=== PATIENT | male | born 1970 | race Caucasian/White ===

== ENCOUNTER 2023-05-11 21:38 | Inpatient (IN) | payer OTHER, SELFPAY ==
[2023-05-11] VITALS (16 sets, daily range): BP systolic 108–166; BP diastolic 84–141; BMI 29.8; BMI 29.0
[2023-05-11 18:32] LABS: % Basophils 0.5 % (0-2); % Eosinophils 0.4 % (0-6); % Immature Granulocytes 1.3 % (0-0.5); % Lymphocytes 15.2 % (20.5-51.1); % Monocytes 9.7 % (1.7-9.3); % Neutrophils 72.9 % (42.2-75.2); Absolute Basophils 0.1 10^3/uL (0-0.2); Absolute Immature Granulocytes 0.1 10^3/uL (0-0.05); Absolute Lymphocytes 1.4 10^3/uL (1.2-3.4); Absolute Monocytes 0.9 10^3/uL (0.1-0.6); Absolute Neutrophils 6.8 10^3/uL (1.4-6.5); Hematocrit 41.1 % (39.0-52.0); Hemoglobin 14.8 g/dL (13.0-18.0); Mean Corpuscular Hgb 32.5 pg (27.0-31.0); Mean Corpuscular Volume 90.3 fL (80.0-94.0); Mean Platelet Volume 9.6 fL (7.4-10.4); Nucleated Red Blood Cells % 0 % (-); Platelet Count 147 10^3/uL (130-400); Red Blood Cell Count 4.55 10^6/uL (4.70-6.10); Red Cell Dist. Width 12.2 % (11.5-14.5); White Blood Cell Count 9.3 10^3/uL (4.8-10.8)
[2023-05-11 18:48] LABS: ALT (SGPT) 46 U/L (0-50); AST (SGOT) 79 U/L (17-59); Albumin 4.5 g/dl (3.5-5.0); Alkaline Phosphatase 132 U/L (38-126); Blood Urea Nitrogen 23 mg/dl (9-20); Calcium 9.4 mg/dl (8.4-10.2); Carbon Dioxide 20 mmol/L (22-30); Chloride 92 mmol/L (98-107); Estimated Creatinine Clearance 87 ml/min; Glucose 154 mg/dl (70-99); Magnesium 0.8 mg/dl (1.6-2.3); Potassium 4.5 mmol/L (3.5-5.1); Sodium 125 mmol/L (135-145); Total Bilirubin 3.9 mg/dl (0.2-1.3); Total Protein 7.9 g/dl (6.3-8.2); eGFR > 60.00
[2023-05-11 18:49] LABS: Troponin I 0.013 ng/ml
[2023-05-11 19:12] LABS: TSH 5.39 uIU/ml (0.47-4.68)
[2023-05-11 19:29] LABS: Alcohol None Detected
[2023-05-11 19:37] LABS: APTT 27.2 Sec (23.4-35.0); INR 1.16; PT 14.8 Sec (11.4-14.6)
[2023-05-11] MEDS: CARDIZEM 20 MG IV (19:45)
[2023-05-11] MEDS: CARDIZEM 125 IV (19:45)
[2023-05-11] MEDS: MAGNESIUM SULFATE 50 IV (19:47)
--- NOTE | 2023-05-11 19:54 | ED.GENMED ---
History of Present Illness
General
Chief Complaint: Heart Rate Problem
Source: patient
Exam Limitations: none
Time Seen by Provider: 05/11/23 18:46
Nursing documentation reviewed up to this point in time: agreed with
Travel History
Have you had any contact with someone who has COVID-19?: No
Do you have any symptoms of coronavirus? Fever > 100 degrees, chills, cough, shortness of breath, sore throat, loss of taste or smell, muscle aches, or headache?: No
History of Present Illness
History of Present Illness:
Patient with history of daily alcohol intake, including yesterday, presents to ED secondary to increased heart rate noted at home along with 'pounding sensation' over the past 3 to 4 days. Denies dizziness. Denies chest pain. Denies nausea or
vomiting. Denies diarrhea. Denies headache. Denies recent illness. Denies recent change in medications or diet. Patient states that he has had similar symptoms in the past, but never this severe.
Past History
Past History
ED Past Medical History: GERD, HTN, Psychiatric (Anxiety, panic disorder) and Other (Alcohol abuse)
ED Past Surgical History: None
Social History
Tobacco: Non-smoker
Alcohol: Daily
Drug: Other (Admits to smoking crystal methamphetamine 2 days ago(04/2020))
Personal: Partner (Girlfriend of 4 years)
Living: with family
Employment: Employed (Self-employed)
Family History
Family History: Hypertension
Review of Systems
Review of Systems
Allergies reviewed?: Yes
All Other Systems: ROS reviewed and negative except as documented in HPI and ROS
Constitutional: Reports no symptoms
EENT: Reports no symptoms
Respiratory: Reports no symptoms
Cardiac: Reports palpitations
ABD/GI: Reports no symptoms
: Reports no symptoms
Musculoskeletal: Reports no symptoms
Skin: Reports no symptoms
Neurological: Reports no symptoms
Phy Exam
Physical Exam
Physical Exam:
Physical Exam
General: no apparent distress, not acutely ill. afebrile. tachycardic
Head: nc/at. eomi
Neck: supple. no meningeal signs.
Heart: tachycardic, no murmur. equal radial pulses.
Lungs: no acute respiratory distress. clear bilaterally
Abdomen: normal bowel sounds. not tender.
Neuro: alert and oriented. no focal neurological deficits
Skin: no rash
Psychiatric: well kept. interactive and cooperative
Extremities: no edema. no calf tenderness.
Course
Orders/Labs/Results
Orders:
Orders
05/11/23 Dinner
Regular
At Your Request: Full Participation
05/11/23 18:02
EKG [Electrocardiogram (*1)] Urgent
Reason for Study: Tachycardia
EKG- Treatment ONCE
05/11/23 18:15
Alcohol Urgent
Complete Blood Count/With Diff Urgent
Comprehensive Metabolic Panel Urgent
Magnesium Urgent
TSH Urgent
Troponin I Urgent
05/11/23 19:18
0.9% Sodium Chloride 1000 ml [Nss] 1,000 ml IV BOLUS
Diltiazem HCl [Cardizem] 20 mg IV NOW STA
Magnesium Sulfate 2 Gram/50 ml [Magnesium Sulfate] 2 gram in 50 ml IV NOW
05/11/23 19:19
Add On- LAB Urgent
Tests Added?: alcohol level, free T4
05/11/23 19:20
PTT Urgent
Prothrombin Time Urgent
05/11/23 19:30
Diltiazem 125 mg/125 ml Nss [Cardizem] 125 mg in 125 ml IV PER PROTOCOL
Initial dose in mg/hr, then titrate:: 5
Titrate to keep:: Heart rate 80-100 bpm
Titrate by mg/hr:: 5 mg/hr
Frequency of titrations (minutes):: 15
Maximum dose in mg/hr:: 15
05/11/23 20:09
Electrocardiogram (*1) Urgent
Reason for Study: Atrial Fibrillation
EKG- Treatment ONCE
05/11/23 21:07
Admit/Transfer Patient As Directed
Co-Sign Provider:
Level of Care: Inpatient admission
Assign to:: IMU- Intermediate Care
Physician / Group: gemini
Diagnosis: aflutter with rvr
Reason for Hospitalization: aflutter rvr
Expected length of stay greater than two midnights?: Yes
ELOS- Estimated Length of Stay in days: 2
I certify the patient meets the requirements for IP care: Yes
Code Status As Directed
Resuscitation Status: Full Code
05/11/23 21:10
Urine Osmolality Random [Osmolality, Random Urine] Urgent
Date Specimen was Collected: 05/12/23
Time Specimen was Collected: 04:05
Urine Sodium Urgent
Date Specimen was Collected: 05/12/23
Time Specimen was Collected: 04:05
05/11/23 22:43
0.9% Sodium Chloride 1000 ml [Nss] 1,000 ml IV 100 mls/hr
0.9% Sodium Chloride [Nss (Preservative Free)] See Protocol IV PRN PRN
Acetaminophen [Tylenol] 650 mg PO Q4HPRN PRN
FOLic ACID [Folvite] 1 mg 0.9% Sodium Chloride 50 ml [Nss] 50 ml IV DAILYPRN
Lorazepam [Ativan] 0.5 mg PO DAILYPRN PRN
Lorazepam [Ativan] 1 mg IV Q1HPRN PRN
Lorazepam [Ativan] 1 mg PO Q2HPRN PRN
Lorazepam [Ativan] 2 mg IV Q1HPRN PRN
Ondansetron Injectable [Zofran] 4 mg IV Q6HPRN PRN
05/11/23 22:43
Activity As Directed
Activity Level: As Tolerated
MSAS SCORE As Directed
MSAS Score 0-4: Repeat MSAS every 2 hours until 0-4 for three consecutive assessments, then every 4 hours x 48
hours.
MSAS Score 5-7: For MILD withdrawl symptoms. Repeat MSAS and RASS every 2 hours
MSAS Score 8-11: For MODERATE withdrawal symptoms. Repeat MSAS and RASS every 1 hour. Consider ICU or IMU
level of care.
MSAS Score > 11: For SEVERE withdrawal symptoms. Repeat MSAS and RASS every 1 hour. Notify provider, consider
ICU level of care.
MSAS Additional Instructions: If no improvement or no decrease in score from severe to moderate within 12
hours, consult psychiatry
MSAS Notify Provider: Notify provider if patient requires more than 10 mg of Lorazepam in eight hour period.
Vital Signs As Directed
Frequency: Per unit guidelines
DX Deep Vein Thrombosis Video Routine
05/12/23 05:51
Complete Blood Count/With Diff IN AM
Comprehensive Metabolic Panel IN AM
05/12/23 08:00
FOLic ACID [Folvite] 1 mg PO DAILY
Heparin 5,000 units SC Q12
Lisinopril [Zestril] 2.5 mg PO DAILY
Metoprolol Xl [Toprol Xl] 75 mg PO DAILY
Pantoprazole [Protonix] 40 mg PO DAILY
Thiamine Injection 200 mg IV Q12
05/15/23 08:00
Thiamine HCl [Vitamin B1] 100 mg PO BID
Abnormal Lab Results
05/11/23 05/11/23
18:15 19:20
RBC 4.55 L 10^6/uL
(4.70-6.10)
MCH 32.5 H pg
(27.0-31.0)
Abs Immat Gran (auto) 0.1 H 10^3/uL
(0-0.05)
Absolute Neuts (auto) 6.8 H 10^3/uL
(1.4-6.5)
Absolute Monos (auto) 0.9 H 10^3/uL
(0.1-0.6)
Immature Gran % 1.3 H %
(0-0.5)
Lymphocytes % 15.2 L %
(20.5-51.1)
Monocytes % 9.7 H %
(1.7-9.3)
PT 14.8 H Sec
(11.4-14.6)
Sodium 125 L mmol/L
(135-145)
Chloride 92 L mmol/L
(98-107)
Carbon Dioxide 20 L mmol/L
(22-30)
BUN 23 H mg/dl
(9-20)
Glucose 154 H mg/dl
(70-99)
Magnesium 0.8 L* mg/dl
(1.6-2.3)
Total Bilirubin 3.9 H mg/dl
(0.2-1.3)
AST 79 H U/L
(17-59)
Alkaline Phosphatase 132 H U/L
(38-126)
TSH 5.39 H uIU/ml
(0.47-4.68)
05/11/23 18:15
05/11/23 18:15
Vital Signs
Initial and Last Documented VS:
Initial Vital Signs
Temp Pulse Resp Pulse Ox
97.6 F 151 15 99
05/11/23 18:10 05/11/23 18:10 05/11/23 18:10 05/11/23 18:10
Last Documented Vital Signs
Temp Pulse Resp BP Pulse Ox
97.8 F 75 23 126/91 95
05/12/23 07:40 05/12/23 07:32 05/12/23 04:00 05/12/23 07:32 05/12/23 04:00
MDM/Problems Addressed
MDM/Problems Addressed:
History and exam consistent with rapid atrial flutter, along with electrolyte abnormalities, including hyponatremia and hypomagnesemia. Patient started on IV fluids along with Cardizem infusion, with improvement heart rate. Electrolytes repleted.
Patient will be admitted for further evaluation and treatment. Patient also at high risk for developing alcohol withdrawal symptoms.
Critical care statement: A total of 40 minutes of critical care time was provided for this patient. This includes management of unstable vital signs, evaluation of the patient at bedside, reviewing the patient's pertinent medical records, review of
old EKGs and review of pertinent medical records. This time with separate from time utilized to perform the aforementioned documented procedures
*EKG
Interpreted by ED Provider?: Yes
EKG Intrepretation Date: 05/11/23
Heart Rate: 149
Rate: tachycardiac
Rhythm: atrial flutter
Capron: normal axis
Interval: normal interval
*Critical Care Note
Total Time (30-74mins, 75-104mins- exclusive of procedures): 40 min
ED Attending Note
-
Portions of this chart may have been created with voice recognition software.� Occasional wrong word or��sound alike� substitutions may have occurred due to the inherent limitations of voice recognition software.
Discharge Plan
Departure
Patient Disposition: Admit
Date of Disposition: 05/11/23
Time of Disposition: 20:27
Admit to: IMU
Presentation/result/management discussed w/ accepting MD/DO: Hospitalist
Discharge Problem:
Atrial flutter with rapid ventricular response, Hyponatremia, Hypomagnesemia, Alcoholism, chronic
Interventions
Interventions:
*Risk Screen - Suicide Last Done: 05/11/23 22:56
*General Assessment Last Done: 05/11/23 18:10
*Neglect/Abuse Screening Last Done: 05/11/23 18:10
ED- Fall Risk Assessment Last Done: 05/11/23 18:39
*ED COVID-19 Vaccine History Last Done: 05/11/23 22:56
*Nursing Disposition Last Done: 05/11/23 23:43
ED- Cardiac Assessment Last Done: 05/11/23 18:39
ED- Pulmonary Assessment Last Done: 05/11/23 18:39
Discharge Date and Time
Discharge Date/Time: 05/11/23 23:00
[2023-05-11] MEDS: NSS 1000 IV ×2 (20:08→23:31)
--- NOTE | 2023-05-11 21:11 | HPS.HSE ---
Family Physician
-
Family Physician: Emilia Little
Chief Complaint
-
palpitations
History of Present Illness
53-year-old female with past medical history of anxiety, panic disorder, alcohol use disorder, hypertension, GERD, presents to the hospital for increased heart rate and palpitations over the past 4 days. He noticed on his Apple Watch his heart rate
had been significantly elevated. He denies any dizziness or passing out. He denied any chest pain in the past few days although for a long time he intermittently does get sharp chest pain that was attributed to anxiety. He denies any shortness of
breath.
He states that his blood pressure has been elevated for a long time and recently his primary has been increasing his blood pressure medications.
Patient states that he was told that he possibly had atrial fibrillation a few years ago but was never on treatment or anticoagulation.
Patient drinks at least 10 ounces of liquor per day. His last drink was yesterday. He does have some tremors all the time but denies any severe tremors or anxiety at this time.
He denies any nausea or vomiting or diarrhea. He denies any abdominal pain.
He denies smoking. He did use marijuana few days ago. He did use other drugs in his youth but denies any other drug use currently.
Medical History
Past Medical History
Past Medical History: Reports Other ( anxiety, panic disorder, alcohol use disorder, hypertension, GERD)
Past Surgical History: Reports None
Social History
Tobacco: Non-smoker
Alcohol: Daily
Drug: Marijuana
Family History
Family History: Not pertinent
Allergies / Home Medications
Allergies reflects when Allergies were last updated in [facility].
Home Medications with original date entered in [facility]
Allergy/Medication List:
Allergies
Allergy/AdvReac Type Severity Reaction Status Date / Time
chocolate flavor Allergy Unknown Unknown Verified 12/20/20 13:04
Home Medications
lisinopril 2.5 mg tablet 2.5 mg PO DAILY 05/11/23
lorazepam 0.5 mg tablet 0.5 mg PO DAILYPRN PRN Anxiety 05/11/23
metoprolol succinate 25 mg tablet,extended release 24 hr 75 mg PO DAILY 05/11/23
omeprazole 20 mg tablet,delayed release 20 mg PO DAILY 05/11/23
Review of Systems
-
History Source: Patient
A 12 point ROS was completed and negative except as noted: Yes
Constitutional: Reports No Symptoms
EENT: Reports No Symptoms
Respiratory: Reports No Symptoms
Cardiac: Reports See HPI
Abdomen/GI: Reports No Symptoms
: Reports No Symptoms
Musculoskeletal: Reports No Symptoms
Skin: Reports No Symptoms
Neurological: Reports No Symptoms
Endocrine: Reports No Symptoms
Hematologic/Lymphatic: Reports No Symptoms
Psych: Reports No Symptoms
Physical Exam
Vital Signs
Vital Signs
Temp Pulse Resp BP Pulse Ox
97.6 F 71 17 108/90 96
05/11/23 18:10 05/11/23 20:47 05/11/23 20:47 05/11/23 20:45 05/11/23 20:30
Physical Exam
General: Well Developed, Well Nourished and No Apparent Distress
HEENT: NormoCephalic, Moist mucous membranes and Atraumatic
Respiratory: Clear
Cardiac: S1/S2 and Regular Rhythm; No Murmur or Rub
GI: Soft, Non Tender, Non Distended and Normal Bowel Sounds; No Organomegaly
Rectal: Deferred by Provider
Musculoskeletal: No Clubbing, No Cyanosis and No Edema
Skin: No Rash
Neuro: Nonfocal/grossly intact
Laboratory Results
-
05/11/23 18:15
05/11/23 18:15
Laboratory Results
PT 14.8 Sec (11.4-14.6) H 05/11/23 19:20
INR 1.16 05/11/23 19:20
APTT 27.2 Sec (23.4-35.0) 05/11/23 19:20
Total Bilirubin 3.9 mg/dl (0.2-1.3) H 05/11/23 18:15
AST 79 U/L (17-59) H 05/11/23 18:15
ALT 46 U/L (0-50) 05/11/23 18:15
Alkaline Phosphatase 132 U/L (38-126) H 05/11/23 18:15
Troponin I 0.013 ng/ml 05/11/23 18:15
Data Reviewed
-
Lab Data: Labs Reviewed by me
Old Records: Reviewed
Impression/Plan
-
IMPRESSION:
PLAN:
# New onset atrial flutter with RVR
-EKG showed atrial flutter with 2:1 AV conduction with heart rate 149
-Cardizem drip started
-TSH pending
-Check echo
-Cardiology consulted
# Worsening of chronic asymptomatic hyponatremia likely beer potomania
-Check urine sodium, osmolality
-Monitor with IV fluids
# High risk for alcohol withdrawal
# Alcohol use disorder
-Alcohol level negative
-Thiamine and folate
-IV fluids
-Alcohol withdrawal protocol
# Hypomagnesemia secondary to alcohol use
-Replete magnesium
# Transaminitis secondary to alcohol use
-Continue to monitor
History of marijuana use
Essential hypertension
-Continue lisinopril, metoprolol
Anxiety/panic disorder
GERD
-Continue omeprazole
Full code
DVT prophylaxis�heparin
Regular diet
[2023-05-11] MEDS: ATIVAN 1 MG PO (23:31)
[2023-05-12] VITALS: BP 130/88
--- NOTE | 2023-05-12 00:51 | PTCARENOTE ---
Received pt from ED via stretcher. Pt was able to ambulate into room with minimal to no assistance. Pt used bathroom on arrival. Able to complete assessment. MSAS protocol in place. 1x dose Ativan given for MSAS of 5. Pt tremulous and
restless, HR >80. Pt very pleasant. Pt requests that NO information regarding his alcohol usage be disclosed to anyone. Cardizem gtt turned off as pt Hr came down into the 70s once comfortable in bed. NSR on monitor. Pt resting in bed with call
waddell in reach.
[2023-05-12 02:00] VITALS: BP 106/73
[2023-05-12] MEDS: TUMS 2 TABLET PO (02:39)
[2023-05-12 04:00] VITALS: BP 126/87
[2023-05-12 06:00] LABS: % Basophils 0.6 % (0-2); % Eosinophils 0.8 % (0-6); % Immature Granulocytes 0.3 % (0-0.5); % Lymphocytes 16.7 % (20.5-51.1); % Monocytes 11.8 % (1.7-9.3); % Neutrophils 69.8 % (42.2-75.2); Absolute Eosinophils 0.1 10^3/uL (0-0.7); Absolute Lymphocytes 1.2 10^3/uL (1.2-3.4); Absolute Monocytes 0.9 10^3/uL (0.1-0.6); Absolute Neutrophils 5.1 10^3/uL (1.4-6.5); Hematocrit 35.7 % (39.0-52.0); Hemoglobin 12.8 g/dL (13.0-18.0); Mean Corp Hgb Conc. 35.9 g/dL (33.0-37.0); Mean Corpuscular Hgb 33.1 pg (27.0-31.0); Mean Corpuscular Volume 92.2 fL (80.0-94.0); Nucleated Red Blood Cells % 0 % (-); Red Blood Cell Count 3.87 10^6/uL (4.70-6.10); Red Cell Dist. Width 12.2 % (11.5-14.5); White Blood Cell Count 7.2 10^3/uL (4.8-10.8)
[2023-05-12 06:26] LABS: Urine Sodium 69 mmol/L (30-90)
[2023-05-12 06:30] LABS: Mean Platelet Volume 9.9 fL (7.4-10.4); Platelet Count 92 10^3/uL (130-400)
[2023-05-12 06:33] LABS: ALT (SGPT) 34 U/L (0-50); AST (SGOT) 55 U/L (17-59); Albumin 3.5 g/dl (3.5-5.0); Alkaline Phosphatase 98 U/L (38-126); Blood Urea Nitrogen 23 mg/dl (9-20); Carbon Dioxide 21 mmol/L (22-30); Chloride 95 mmol/L (98-107); Estimated Creatinine Clearance 109 ml/min; Glucose 141 mg/dl (70-99); Potassium 4.6 mmol/L (3.5-5.1); Sodium 129 mmol/L (135-145); Total Bilirubin 3.1 mg/dl (0.2-1.3); Total Protein 6.4 g/dl (6.3-8.2); eGFR > 60.00
[2023-05-12 06:54] LABS: Magnesium 1.3 mg/dl (1.6-2.3)
[2023-05-12 07:06] LABS: Osmolality Urine 511 mOsm/kg (300-900)
[2023-05-12] MEDS: ZESTRIL 2.5 MG PO (07:32)
[2023-05-12] MEDS: PROTONIX 40 MG PO (07:32)
[2023-05-12] MEDS: TOPROL XL 75 MG PO (07:32)
[2023-05-12] MEDS: FOLVITE 1 MG PO (07:32)
[2023-05-12] MEDS: HEPARIN 5000 UNITS SC (07:33)
[2023-05-12] MEDS: THIAMINE INJECTION 200 MG IV (07:33)
[2023-05-12] MEDS: MAGNESIUM SULFATE 100 IV (07:33)
--- NOTE | 2023-05-12 07:38 | CON.CAR ---
Addendum entered and electronically signed by Al Gonsalez MD 05/12/23 10:57:
I saw and examined the patient.
The SPECIAL DELIVERY CLERK or PA's note was reviewed and I agree with the note.
Comment: General: Well developed, well nourished in NAD.
Neck: Supple, no JVD, HJR, carotids +2 B/L, no bruits bilaterally.
Heart: Non displaced PMI, RRR, no murmurs, No S3, S4, no rubs.
Lungs: Clear to auscultation bilaterally, no wheeze, rhonchi, rubs bilaterally,
normal expiratory phase.
Abdomen: Normal bowel sounds, soft, non-tender, non-distended.
Extremities: No clubbing, cyanosis or edema bilaterally.
Neuro: Grossly nonfocal, awake, alert and oriented x3.
Al has a history of anxiety, alcohol use, pancreatitis, hypertension, reflux. He presented with increased heart rate and palpitations over the past 4 days with elevated heart rate on his Apple watch. Was found to be in atrial flutter. He
spontaneously converted to sinus rhythm.
CHADS2 score is 1 with hypertension. Will treat with Toprol and aspirin for now. He will follow-up for recurrence on his Apple watch. Check echocardiogram. If okay stable cardiology status for discharge. Would consider ablation with recurrent
atrial flutter. Urged to stop drinking alcohol
Original Note:
Consultation
Consultation Request
Date/Time Consultation Requested: 05/11/2023
Date/Time Consultation Performed: 05/12/2023
Requesting Provider: Dr. Campos
Performing Provider: Maryanne Tyson PA-C for Dr. Gonsalez
Reason for Consultation: Atrial flutter
Medical History
-
History of Present Illness:
Patient is a 53-year-old female with past medical history of anxiety, panic disorder, alcohol use disorder, hypertension, GERD, presented 05/11/2023 to the hospital for increased heart rate and palpitations over the past 4 days. He noticed on his
Apple Watch his heart rate had been significantly elevated. Initial EKG on presentation showed atrial flutter at 86 bpm. However, upon monitoring of telemetry heart rate did increase to 2-1 atrial flutter at 149 bpm and patient was placed on IV
diltiazem drip with spontaneous conversion to sinus rhythm in emergency department.. Patient was found to be hyponatremic with sodium of 125, hypomagnesemic with magnesium of 0.8. TSH was mildly elevated at 5.39. Troponin was negative.
At time of this evaluation patient reports that he is feeling well. He denies further palpitations, chest pain, shortness of breath, dizziness or lightheadedness.
Patient reports he used to be very active and was exercising daily including running prior to the pandemic. Since that time he has not been as active. He notes occasional intermittent chest discomfort which comes without rhyme or reason and not
necessarily related to activity or exertion. He also notes occasional intermittent palpitations that can occur several times a week.
PMH:
Anxiety/Panic disorder
Alcohol use disorder
Pancreatitis
Hypertension
GERD with prior peptic ulcer
Past Medical History
Past Medical History: Other (See HPI)
Past Surgical History: None
Social History
Tobacco: Non-Smoker
Alcohol: Daily
Drug: Marijuana
Personal: Partner
Living: With Family
Employment: Employed (bill adjuster)
Family History
Family History: Cancer (Mother lung cancer)
Allergies / Home Medications
Allergy/AdvReac Type Severity Reaction Status Date / Time
chocolate flavor Allergy Unknown Unknown Verified 12/20/20 13:04
�Medication �Instructions �Recorded �Confirmed �Type
lisinopril 2.5 mg tablet 2.5 mg PO DAILY 05/11/23 05/11/23 History
lorazepam 0.5 mg tablet 0.5 mg PO DAILYPRN PRN Anxiety 05/11/23 05/11/23 History
metoprolol succinate 25 mg 75 mg PO DAILY 05/11/23 05/11/23 History
tablet,extended release 24 hr
omeprazole 20 mg tablet,delayed 20 mg PO DAILY 05/11/23 05/11/23 History
release
Review of Systems
-
History Source: Patient
All other systems: Negative unless noted
Physical Exam
Vital Signs
Temp Pulse Resp BP Pulse Ox
97.8 F 75 23 126/91 95
05/12/23 04:35 05/12/23 07:32 05/12/23 04:00 05/12/23 07:32 05/12/23 04:00
GEN: No distress, awake, Ox3
HEENT: supple, anicteric, mmm
LUNGS: CTA, no wheezes/rales
CV: Reg, S1/S2, no murmur, rubs or gallops
ABD: soft, BS+, NT/ND
EXT: No edema, clubbing or cyanosis
NEURO: Gross non-focal
SKIN: No rash, warm, dry, pink
Lab Results
05/12/23 05:51
05/12/23 05:51
Troponin I 0.013 ng/ml 05/11/23 18:15
Impression / Plan
-
PCP: Emilia Little
Supervisor Speech: None prior to arrival
Impression:
Presented 05/11/2023 with palpitations, tachycardia
Atrial flutter, new diagnosis
Hyponatremia
Hypomagnesemia
Elevated LFTs
Anxiety/Panic disorder
Alcohol use disorder
Pancreatitis
Hypertension
GERD with prior peptic ulcer
Echo 05/12/2023: ordered
Plan:
-Presented 05/11/2023 with palpitations, tachycardia noted to be in atrial flutter, new onset.
-New onset atrial flutter of unknown duration, possibly 4 days as patient had noted heart rate to be elevated on Apple Watch.
-Patient spontaneously converted to sinus rhythm with IV diltiazem. He remains in sinus rhythm overnight on telemetry.
-Continue Toprol for rate and rhythm control.
-Would check an echocardiogram to assess LV function.
-[id number] score 1 (HTN). Start ASA 81 mg.
-TSH 5.39
-Correct electrolytes, magnesium improved from 0.8-1.3. Continue repletion
-Improving hyponatremia 125-> 129. Likely secondary to daily alcohol use.
-Abnormal LFTs. Improved on repeat blood work AST/ALT 55/34
-Hypertension - continue low dose Lisinopril and Toprol.
-[facility] protocol for ETOH abuse. Discussed needs to reduce stop drinking
-Will arrange outpatient cardiology follow up with consideration of outpatient monitor. May be a good candidate for atrial flutter ablation.
-Atypical chest pain. Consider outpatient treadmill stress test at follow-up. Troponin negative
[facility] 05/12/2023:
Patient is a 53-year-old female with past medical history of anxiety, panic disorder, alcohol use disorder, hypertension, GERD, presented 05/11/2023 to the hospital for increased heart rate and palpitations over the past 4 days. He noticed on his
Apple Watch his heart rate had been significantly elevated. Initial EKG on presentation showed atrial flutter at 86 bpm. However, upon monitoring of telemetry heart rate did increase to 2-1 atrial flutter at 149 bpm and patient was placed on IV
diltiazem drip with spontaneous conversion to sinus rhythm in emergency department.. Patient was found to be hyponatremic with sodium of 125, hypomagnesemic with magnesium of 0.8. TSH was mildly elevated at 5.39. Troponin was negative.
At time of this evaluation patient reports that he is feeling well. He denies further palpitations, chest pain, shortness of breath, dizziness or lightheadedness.
Patient reports he used to be very active and was exercising daily including running prior to the pandemic. Since that time he has not been as active. He notes occasional intermittent chest discomfort which comes without rhyme or reason and not
necessarily related to activity or exertion. He also notes occasional intermittent palpitations that can occur several times a week.
--- NOTE | 2023-05-12 07:49 | W.PN.HOSP.TC ---
Today's Communication/Plan
-
await echo
await cards
Assessment / Plan
Assessment / Plan
pt is a 53 year old male
New onset atrial flutter with RVR--initial EKG showed atrial flutter with 2:1 AV conduction with heart rate 149--s/p cardizem drip (off this AM)--TSH mildly elevated--check echo--await cards input
Worsening of chronic asymptomatic hyponatremia likely due to ETOH intake--improving
Alcohol use disorder--High risk for alcohol withdrawal--cont with MSAS, IV thiamine/folate repletion--drinks 10 oz of liquor daily--knows he needs to quit--does not want his family knowing about his ETOH intake
Hypomagnesemia secondary to alcohol use--Replete magnesium
Transaminitis secondary to alcohol use--improved
History of marijuana use
Essential hypertension--Continue lisinopril, metoprolol--cont meds as able
Anxiety/panic disorder--pt reports taking lorazepam as needed
GERD-Continue omeprazole
Full code
DVT prophylaxis�heparin
Anticipated Discharge: Within 24 hours
Subjective/Interval History
-
Date of Service: May 12, 2023
pt heart rate improved--no c/o shakiness--wants to go home
Objective Data
-
Labs:
Laboratory Results
05/12/23
05:51
WBC 7.2
Hgb 12.8 L
Hct 35.7 L
Plt Count 92 L D
Sodium 129 L
Potassium 4.6
Chloride 95 L
Carbon Dioxide 21 L
BUN 23 H
Creatinine 0.8
Glucose 141 H
Calcium 9.0
Total Bilirubin 3.1 H
AST 55
ALT 34
Alkaline Phosphatase 98
Vital Signs:
max temp for 24 hours
05/11/23
23:50
Temp 98.2 F
Vital Signs
Temp Pulse Resp BP Pulse Ox
97.8 F 75 23 126/91 95
05/12/23 07:40 05/12/23 07:32 05/12/23 04:00 05/12/23 07:32 05/12/23 04:00
I&O
05/11/23 05/12/23 05/13/23
06:59 06:59 06:59
Intake Total 1230 / 1230
Output Total 125 / 125
Balance 1105 / 1105
Review of Systems
-
All other systems: Reviewed and negative
Physical Exam
-
General: Well Developed, Well Nourished and No Apparent Distress
HEENT: Normocephalic and Atraumatic; Negative Oxygen
Respiratory: Clear to Auscultation; Negative Wheezes or Rhonchi
Cardiac: Regular Rhythm and S1/S2; Negative Murmur
GI: Soft, Nontender, Nondistended and Normal Bowel Sounds
Musculoskeletal: No Clubbing, No Cyanosis and No Edema
Neuro: Awake and Alert; Negative Tremors
Psych: Calm
[2023-05-12] MEDS: NSS 1000 IV (09:35)
[2023-05-12] MEDS: LOW STRENGTH ASPIRIN 81 MG PO (09:35)
[2023-05-12] MEDS: ATIVAN 0.5 MG PO (09:39)
--- NOTE | 2023-05-12 11:34 | CM ---
Patient seen at bedside. Patient for discharge home. Per nursing and chart review patient lives with friend and PCP is Dr. Little. Patient confirmed plan for driving home and stated that he has no other needs. Patient uses the [facility] in [place].
Patient plan is for discharge home with no needs. CM will continue to follow for discharge planning needs.
Plan; home with no needs acknowledged at this time.
--- NOTE | 2023-05-12 13:06 | PTCARENOTE ---
Patient refused FLU shot reports it too late in the season.
--- NOTE | 2023-05-12 13:32 | W.DCSUMMARY ---
Discharge Summary
Discharge Data
Date of Admission: 05/11/23
Date of Discharge: 05/12/23
-
Pending Results: No
Hospital Course
Primary care physician : Emilia Little
Principal Discharge diagnosis : New onset atrial flutter with rapid ventricular response
Chronic Discharge diagnosis : Chronic asymptomatic hyponatremia due to alcohol intake, alcohol use disorder, hypomagnesemia, transaminitis secondary to alcohol use, history of marijuana use, essential hypertension, anxiety/panic disorder,
gastroesophageal reflux disease
Hospital Course : Patient 53-year-old male with a history of anxiety and panic disorder, alcohol use disorder who presented for increased heart rate and palpitations over the past 4 days prior to admission. He noticed on his Apple Watch his heart
rate was significantly elevated. He denied any dizziness, chest pain or passing out. Patient stated he was told that he possibly had atrial fibrillation a few years back was but was never on treatment or anticoagulation. Patient drinks 10 ounces
of liquor per day and his last drink was the day prior to admission. Patient was admitted.
Problem #1: New onset atrial flutter with a ventricular response. Patient was placed on a Cardizem drip and his heart rate improved. He was seen in consultation by cardiology who did not feel that he needs any type of anticoagulation at this
point. Echocardiogram was done which shows normal ejection fraction of 65%. Other measures were also normal. He will be continued on Toprol and aspirin for now. He has been instructed to stop drinking alcohol.
Problem #2: All other medical issues. These include Chronic asymptomatic hyponatremia due to alcohol intake, alcohol use disorder, hypomagnesemia, transaminitis secondary to alcohol use, history of marijuana use, essential hypertension,
anxiety/panic disorder, gastroesophageal reflux disease. These medical issues were stable during his hospitalization. Medications were continued as able. Patient was placed on the alcohol withdrawal protocol. There were no signs of withdrawal at
this point.
Patient is stable for discharge home at this time. If there are any questions regarding this dictation or his hospital stay, please not hesitate to call. Our office number is [phone].
Procedure findings :
ECHOCARDIOGRAM CONCLUSIONS:
Normal left ventricular chamber size. Normal left ventricular systolic
function. Left ventricular ejection fraction is 65% by visual assessment.
Normal regional wall motion. Normal left ventricular wall thickness. Normal
diastolic function.
Discharge Plan
-
Patient Disposition: Home (Routine Discharge)
Discharge Diagnosis/Procedures: New onset atrial flutter with rapid ventricular response, chronic asymptomatic hyponatremia due to alcohol intake, alcohol use disorder, hypomagnesemia, transaminitis resolved, history of marijuana use, essential
hypertension, anxiety/panic disorder, gastroesophageal reflux disease
Condition: Good
Diet: As tolerated and Regular
Additional Diets: avoid all alcohol
Activity: As tolerated
Driving Restrictions: As prior to admission
Bathing Restrictions: None
Referrals:
Maryanne Tyson PA-C [Specified Professional Personl] - 06/02/23 8:40 am (You have cardiology follow up with Maryanne Tyson PA-C on June 01 at 8:40 am in [address] in [address] [facility] which is located behind the hospital. If you are unable to make this
appointment please call [phone] to reschedule. )
Emilia Little PA-C [Family Provider] - in less than 1 week
Prescriptions:
New
thiamine HCl (vitamin B1) 100 mg Tablet
100 mg PO BID Qty: 0 0RF
aspirin [Children's Aspirin] 81 mg Tablet,Chewable
81 mg PO DAILY Qty: 0 0RF
folic acid 1 mg Tablet
1 mg PO DAILY Qty: 0 0RF
Continued
lisinopril 2.5 mg Tablet
2.5 mg PO DAILY
omeprazole 20 mg Tablet,Delayed Release (Dr/Ec)
20 mg PO DAILY
lorazepam 0.5 MG tablet
0.5 mg PO DAILYPRN PRN (Reason: Anxiety)
metoprolol succinate 25 MG tablet extended release 24 hr
75 mg PO DAILY
Discharge Orders:
Discharge Patient (As Directed); Ordered 05/12/23
Ordered By: Chloe Devlin
Discharge Date and Time
Discharge Date/Time: 05/12/23 13:23
Print Language: URDU
== END 2023-05-12 13:23 | disposition home or self-care (01) | DRG 309 ==
LOC: IMU 21:38
PROVIDERS: ADMITTING PHYSICIAN Hospitalist; ATTENDING PHYSICIAN Internal Medicine; EMERGENCY PHYSICIAN Emergency Medicine; FAMILY PHYSICIAN Physician Assistant; OTHER PHYSICIAN Internal Medicine Cardiovascular Disease
DX: I48.92 Unspecified atrial flutter (principal); E87.1 Hypo-osmolality and hyponatremia; F41.0 Panic disorder [episodic paroxysmal anxiety]; I10 Essential (primary) hypertension; K21.9 Gastro-esophageal reflux disease without esophagitis; F10.20 Alcohol dependence, uncomplicated; I48.91 Unspecified atrial fibrillation; E83.42 Hypomagnesemia; R25.1 Tremor, unspecified; R74.01 Elevation of levels of liver transaminase levels; F12.91 Cannabis use, unspecified, in remission; Z91.02 Food additives allergy status; Z87.11 Personal history of peptic ulcer disease
CPT/HCPCS: 80053; 82077; 83735; 83935; 84300; 84443; 84484; 85025; 85610; 85730; 93005; 93306; 96365; 96366; 96375; 99285

== ENCOUNTER 2023-10-05 15:25 | Emergency (ER) | payer OTHER, SELFPAY ==
[2023-10-05] VITALS (10 sets, daily range): BP systolic 120–147; BP diastolic 98–118
--- NOTE | 2023-10-05 15:43 | ED.PDOC.TRB ---
ED Provider Triage
-
Patient seen by provider in Triage?: Seen in Triage
Patient presents with onset of palpitations and racing heart couple hours prior to arrival. No chest pain or shortness of breath. He was admitted in May of this year for new onset atrial flutter. He is not anticoagulated. No complaints
otherwise. Patient is stable. Labs ordered EKG shows atrial flutter with a rate in the 150s. Daily alcohol use.
[2023-10-05 15:58] LABS: % Basophils 0.5 % (0-2); % Eosinophils 0.5 % (0-6); % Immature Granulocytes 0.1 % (0-0.5); % Lymphocytes 18.7 % (20.5-51.1); % Monocytes 12.3 % (1.7-9.3); % Neutrophils 67.9 % (42.2-75.2); Absolute Lymphocytes 1.4 10^3/uL (1.2-3.4); Absolute Monocytes 0.9 10^3/uL (0.1-0.6); Hematocrit 35.7 % (39.0-52.0); Hemoglobin 12.9 g/dL (13.0-18.0); Mean Corp Hgb Conc. 36.1 g/dL (33.0-37.0); Mean Corpuscular Hgb 32.1 pg (27.0-31.0); Mean Corpuscular Volume 88.8 fL (80.0-94.0); Mean Platelet Volume 9.9 fL (7.4-10.4); Nucleated Red Blood Cells % 0 % (-); Platelet Count 136 10^3/uL (130-400); Red Blood Cell Count 4.02 10^6/uL (4.70-6.10); Red Cell Dist. Width 12.5 % (11.5-14.5); White Blood Cell Count 7.3 10^3/uL (4.8-10.8)
[2023-10-05 16:02] LABS: ALT (SGPT) 43 U/L (0-50); AST (SGOT) 101 U/L (17-59); Albumin 3.8 g/dl (3.5-5.0); Alcohol 21 mg/dl; Alkaline Phosphatase 261 U/L (38-126); Blood Urea Nitrogen 14 mg/dl (9-20); Calcium 8.1 mg/dl (8.4-10.2); Carbon Dioxide 22 mmol/L (22-30); Chloride 96 mmol/L (98-107); Glucose 205 mg/dl (70-99); Potassium 4.6 mmol/L (3.5-5.1); Sodium 129 mmol/L (135-145); Total Bilirubin 1.9 mg/dl (0.2-1.3); Total Protein 7.2 g/dl (6.3-8.2); eGFR > 60.00
[2023-10-05 16:32] LABS: TSH Reflex To Free T4 3.22 uIU/ml (0.47-4.68)
--- NOTE | 2023-10-05 16:48 | ED.GENMED ---
History of Present Illness
General
Chief Complaint: Heart Rate Problem
Source: patient and records
Exam Limitations: none
Time Seen by Provider: 10/05/23 16:07
Nursing documentation reviewed up to this point in time: agreed with
History of Present Illness
History of Present Illness:
Patient is a 53-year-old male who presents to the emergency department after going into atrial flutter approximately 2 hours ago. Patient was drinking cold liquids and then had something to eat when he went into tachycardia. Patient is certain
that it was 2 hours ago. Patient is not anticoagulated. Patient has not followed up with cardiology but his family doctor. Patient has a history of hyponatremia in the past. Patient drinks water excessively. Patient denies fever or chills,
nasal congestion, sore throat or cough. Patient denies any chest pain or shortness of breath. Patient has had some nausea but no vomiting or diarrhea. Patient denies any abdominal pain. Initially patient thought he was just feeling anxious but
he checked his watch and the rate was elevated. Patient denies any leg pain or swelling. Patient denies any symptoms.
Past History
Past History
ED Past Medical History: Arrthythmia (Atrial flutter), GERD, HTN, Psychiatric (Anxiety, panic disorder) and Other (Alcohol abuse)
ED Past Surgical History: None
Social History
Tobacco: Non-smoker
Alcohol: Daily
Drug: Other (Admits to smoking crystal methamphetamine 2 days ago(04/2020))
Personal: Partner (Girlfriend of 4 years)
Living: with family
Employment: Employed (Self-employed)
Family History
Family History: Hypertension
Review of Systems
Review of Systems
All Other Systems: ROS reviewed and negative except as documented in HPI and ROS
Constitutional: Reports fatigue; Denies fever or chills
EENT: Reports no symptoms
Respiratory: Reports no symptoms
Cardiac: Reports palpitations; Denies chest pain, diaphoresis or syncope
ABD/GI: Reports nausea; Denies abdominal pain, vomiting, diarrhea, constipated, bloody stools or black stools
: Reports no symptoms
Musculoskeletal: Reports no symptoms
Skin: Reports no symptoms
Neurological: Reports no symptoms
Hematologic/Lymphatic: Reports no symptoms
Psychiatric: Reports no symptoms
Phy Exam
Physical Exam
Physical Exam:
Physical Exam
General: No apparent distress, alert and appropriate, well nourished, well hydrated
HENT: Normocephalic, supple with no lymphadenopathy, no thyromegaly
Eyes: Clear sclera, conjuctiva without injection
Heart: Regular irregular irregular rhythm and tachycardic rate. No S3, S4. No murmur. No NVD
Lungs: No respiratory distress, no stridor, lung sounds clear and equal bilaterally, chest wall symmetrical and nontender
Abdomen: Soft, nontender, no organomegaly, no CVA tenderness, BS good
Neuro: Alert and oriented x 3, CN II - XII intact, no motor focality, no cerebellar dysfunction
Skin: no rash
Psychiatric: well kept. interactive and cooperative
Extremities: No edema, cyanosis, tenderness
Scores
Heart Failure Risk
Heart Failure Risk Score: Not Applicable
Heart Score for Chest Pain Patients
STEMI patient?: Not applicable
Withdrawal Assessment of Alcohol
Withdrawal Assessment Completed?: Not applicable
Course
Orders/Labs/Results
Orders:
Orders
10/05/23 15:27
EKG [Electrocardiogram (*1)] Urgent
Reason for Study: Chest Pain
EKG- Treatment ONCE
10/05/23 15:40
Alcohol Urgent
Complete Blood Count/With Diff Urgent
Comprehensive Metabolic Panel Urgent
TSH Reflex To Free T4 Urgent
10/05/23 16:40
Propofol [Diprivan] 20 ml .ROUTE .STK-MED
Abnormal Lab Results
10/05/23
15:40
RBC 4.02 L 10^6/uL
(4.70-6.10)
Hgb 12.9 L g/dL
(13.0-18.0)
Hct 35.7 L %
(39.0-52.0)
MCH 32.1 H pg
(27.0-31.0)
Absolute Monos (auto) 0.9 H 10^3/uL
(0.1-0.6)
Lymphocytes % 18.7 L %
(20.5-51.1)
Monocytes % 12.3 H %
(1.7-9.3)
Sodium 129 L mmol/L
(135-145)
Chloride 96 L mmol/L
(98-107)
Glucose 205 H mg/dl
(70-99)
Calcium 8.1 L mg/dl
(8.4-10.2)
Total Bilirubin 1.9 H mg/dl
(0.2-1.3)
AST 101 H U/L
(17-59)
Alkaline Phosphatase 261 H U/L
(38-126)
10/05/23 15:40
10/05/23 15:40
Vital Signs
Initial and Last Documented VS:
Initial Vital Signs
Temp Pulse Resp BP Pulse Ox
98.2 F 150 20 146/110 99
10/05/23 15:30 10/05/23 15:30 10/05/23 15:30 10/05/23 15:30 10/05/23 15:30
Last Documented Vital Signs
Temp Pulse Resp BP Pulse Ox
97 F 92 18 128/98 98
10/05/23 18:08 10/05/23 17:57 10/05/23 17:57 10/05/23 17:57 10/05/23 17:57
Procedures
Cardioversion
Indication:: Afib
Performed by:: linkenheimer
Synchronized?: Yes
Energy Used: 150 joules
Number of attempts: 1
Successful?: Yes
Complications: none
ASA Risk Score: Class II
Any reaction or bad outcome to prior sedation/anesthesia?: No history of a reaction
Sedation level to be attained: deep
Chart and allergies reviewed: Yes
Patient reassessed prior to sedation: Yes
Time out completed at (validating right patient & procedure): 17:07
History of difficult intubation: No
Airway free of obstruction: Yes
Patient has a gag reflex: Yes
Patient is able to open mouth: Yes
Patient has no dentures: Yes
Patient has no loose teeth: Yes
Medication administered by Provider during Moderate Sedation: IV Propofol (mg)
Total dose administered: 100
Time drug administered: 17:07
Start Time: 17:07
Stop Time: 17:17
*Radiology
Radiology exam reviewed: other (na)
*Pulse Oximetry
Patient hypoxic: no
*EKG
Interpreted by ED Provider?: Yes
EKG Intrepretation Date: 10/05/23
EKG Intrepretation Time: 16:52
Interpretation: abnormal
Comparison EKG: changes noted
Heart Rate: 144
Rate: tachycardiac
Rhythm: atrial flutter
[place]: normal axis
Interval: normal QT interval
QRS Pattern: normal QRS
Ischemia: non-specific ST changes
*Plug Drill Operator Interpretation
Rate: tachycardiac
Interpretation: abnormal
Heart Rate: 150
Rhythm: atrial flutter
*Critical Care Note
Total Time (30-74mins, 75-104mins- exclusive of procedures): Not Applicable
ED Attending Note
-
Portions of this chart may have been created with voice recognition software.� Occasional wrong word or��sound alike� substitutions may have occurred due to the inherent limitations of voice recognition software.
Discharge Plan
Departure
Patient Disposition: Home (Routine Discharge)
Date of Disposition: 10/05/23
Time of Disposition: 17:56
Patient with high blood pressure during this ER visit?: No
Condition: Good
Covid-19: Not Applicable
Discharge Problem:
Atrial flutter with rapid ventricular response, Hyponatremia
Instructions: Atrial Fibrillation (DC), Cardioversion (DC), Hypovolemia in adults, MODERATE SEDATION ADULT
Prescriptions:
New
Eliquis 5 mg tablet
5 mg PO BID Qty: 60 0RF
No Action
omeprazole 20 mg Tablet,Delayed Release (Dr/Ec)
20 mg PO DAILY
lorazepam 0.5 MG tablet
0.5 mg PO DAILYPRN PRN (Reason: Anxiety)
Patient Comments:
10/05/23: last filled 09/20/23 for 30 tablets over 30 days
metoprolol succinate 25 MG tablet extended release 24 hr
75 mg PO DAILY
aspirin [Children's Aspirin] 81 mg Tablet,Chewable
81 mg PO DAILY Qty: 0 0RF
ibuprofen 200 mg Tablet
600 mg PO Q6HPRN PRN (Reason: mild pain)
lisinopril 5 mg Tablet
5 mg PO DAILY
folic acid 800 mcg Tablet
0.8 mg PO DAILY
Referrals:
Emilia Little PA-C [Family Provider] - Follow up in 5-7 days
Nichole Burnett DO [Active] - Call in 1-3 days for appt
Activity Restrictions/Additional Instructions:
Continue present medications and therapy.
Interventions
Interventions:
*Risk Screen - Suicide Last Done: 10/05/23 16:12
*General Assessment Last Done: 10/05/23 16:12
*Neglect/Abuse Screening Last Done: 10/05/23 16:12
*ED COVID-19 Vaccine History Last Done: 10/05/23 16:12
*Nursing Disposition Last Done: 10/05/23 18:23
ED- Cardiac Assessment Last Done: 10/05/23 16:12
ED- Pulmonary Assessment Last Done: 10/05/23 16:12
Discharge Date and Time
Discharge Date/Time: 10/05/23 18:24
Print Language: BELARUSIAN
== END 2023-10-05 18:24 | disposition home or self-care (01) ==
LOC: EMR 15:25
PROVIDERS: Physician Assistant; EMERGENCY PHYSICIAN Emergency Medicine; FAMILY PHYSICIAN Physician Assistant
DX: I48.92 Unspecified atrial flutter (principal); E87.1 Hypo-osmolality and hyponatremia; I10 Essential (primary) hypertension; F10.90 Alcohol use, unspecified, uncomplicated; F41.9 Anxiety disorder, unspecified; Z79.899 Other long term (current) drug therapy
CPT/HCPCS: 92960; 99285; 80053; 82077; 84443; 85025; 93005

== ENCOUNTER → 2024-01-29 10:51 | Outpatient (REF) | payer OTHER, SELFPAY | LOC: HWRAD 10:51 | PROVIDERS: ATTENDING PHYSICIAN Physician Assistant | DX: R79.0 Abnormal level of blood mineral (principal); F10.10 Alcohol abuse, uncomplicated; R79.89 Other specified abnormal findings of blood chemistry | CPT/HCPCS: 76700 ==

== ENCOUNTER → 2024-04-02 12:33 | Outpatient (REF) | payer OTHER, SELFPAY | LOC: PET 12:33 | PROVIDERS: ATTENDING PHYSICIAN Internal Medicine Cardiovascular Disease | DX: R07.89 Other chest pain (principal) | CPT/HCPCS: 78431; A9555; J2785 ==

== ENCOUNTER 2024-06-26 18:03 | Emergency (ER) | payer SELFPAY ==
[2024-06-26 18:05] VITALS: BP 178/105
[2024-06-26 18:54] VITALS: BMI 25.4
[2024-06-26 19:43] LABS: % Basophils 0.4 % (0-2); % Eosinophils 0.2 % (0-6); % Immature Granulocytes 0.3 % (0-0.5); % Lymphocytes 11.1 % (20.5-51.1); Absolute Lymphocytes 1.1 10^3/uL (1.2-3.4); Absolute Monocytes 0.9 10^3/uL (0.1-0.6); Absolute Neutrophils 7.7 10^3/uL (1.4-6.5); Hematocrit 31.6 % (39.0-52.0); Hemoglobin 11.2 g/dL (13.0-18.0); Mean Corp Hgb Conc. 35.4 g/dL (33.0-37.0); Mean Corpuscular Hgb 32.3 pg (27.0-31.0); Mean Corpuscular Volume 91.1 fL (80.0-94.0); Mean Platelet Volume 9.8 fL (7.4-10.4); Nucleated Red Blood Cells % 0 % (-); Platelet Count 151 10^3/uL (130-400); Red Blood Cell Count 3.47 10^6/uL (4.70-6.10); Red Cell Dist. Width 11.4 % (11.5-14.5); White Blood Cell Count 9.7 10^3/uL (4.8-10.8)
[2024-06-26 19:53] LABS: ALT (SGPT) 21 U/L (0-50); AST (SGOT) 41 U/L (17-59); Albumin 3.4 g/dl (3.5-5.0); Alkaline Phosphatase 275 U/L (38-126); Blood Urea Nitrogen 27 mg/dl (9-20); Calcium 8.6 mg/dl (8.4-10.2); Carbon Dioxide 23 mmol/L (22-30); Chloride 109 mmol/L (98-107); Estimated Creatinine Clearance 108 ml/min; Glucose 236 mg/dl (70-99); Potassium 4.1 mmol/L (3.5-5.1); Sodium 138 mmol/L (135-145); Total Bilirubin 2.4 mg/dl (0.2-1.3); Total Protein 6.6 g/dl (6.3-8.2); eGFR > 60.00
[2024-06-26 20:00] VITALS: BP 169/105
[2024-06-26 20:01] LABS: INR 1.22; PT 15.9 Sec (11.4-14.6)
[2024-06-26 20:14] LABS: COVID-19 Antigen Negative (Negative)
--- NOTE | 2024-06-26 21:01 | ED.GENMED ---
History of Present Illness
General
Chief Complaint: Breathing Problem
Time Seen by Provider: 06/26/24 19:09
History of Present Illness
History of Present Illness:
34-year-old male with history of paroxysmal atrial flutter on anticoagulants presents the emergency department for evaluation of persistent coughing and nasal congestion for the past 5 days with brown/yellowish discharge. Was concerned for
possibility of hemoptysis today as well. Reports body aches and chills. Also notes dark stool. He does admit to heavy alcohol use for greater than 1 year, declining any resources at this time. No upper abdominal pain
Past History
Past History
ED Past Medical History: Arrthythmia (Atrial flutter), GERD, HTN, Psychiatric (Anxiety, panic disorder) and Other (Alcohol abuse)
ED Past Surgical History: None
Social History
Tobacco: Non-smoker
Alcohol: Daily
Drug: Other (Admits to smoking crystal methamphetamine 2 days ago(04/2020))
Personal: Partner (Girlfriend of 4 years)
Living: with family
Employment: Employed (Self-employed)
Family History
Family History: Hypertension
Review of Systems
Review of Systems
Allergies reviewed?: Yes
All Other Systems: ROS reviewed and negative except as documented in HPI and ROS
Phy Exam
Physical Exam
Physical Exam:
GEN: Well appearing, NAD, WDWN
HEENT: Oral mucosa moist, no scleral icterus
Cardiac: Regular rate and rhythm, no murmurs
Lung: No respiratory distress, no tachypnea, lungs clear to auscultation bilaterally
Abdomen: Soft, nontender
MSK: No gross deformity or injuries
Skin: Good color, no pallor or jaundice, no rashes
Neuro: AO x3, moves all extremities freely
Psych: Calm, cooperative
Scores
Heart Failure Risk
Heart Failure Risk Score: Not Applicable
Course
Orders/Labs/Results
Orders:
Orders
06/26/24 19:19
CR Chest - 2 Views Urgent
Comment:
Reason For Exam: cough
06/26/24 19:30
Comprehensive Metabolic Panel Urgent
Prothrombin Time Urgent
06/26/24 19:31
Complete Blood Count/With Diff Urgent
06/26/24 19:42
Type+Screen Urgent
COVID-19 Antigen Urgent
Source: Nasal Swab
Influenza A+B Rapid Molecular Urgent
SAUD Source: Nasal Swab
Specimen Description:
06/26/24 20:28
ABO2 Urgent
BBK Wristband Number:
Associate notified that ABO2 has been ordered: [id number]/CHERISE
Date: 06/26/24
Time: 20:15
Director Business ID: [id number]
Abnormal Lab Results
06/26/24 06/26/24
19:30 19:31
RBC 3.47 L 10^6/uL
(4.70-6.10)
Hgb 11.2 L g/dL
(13.0-18.0)
Hct 31.6 L %
(39.0-52.0)
MCH 32.3 H pg
(27.0-31.0)
RDW 11.4 L %
(11.5-14.5)
Absolute Neuts (auto) 7.7 H 10^3/uL
(1.4-6.5)
Absolute Lymphs (auto) 1.1 L 10^3/uL
(1.2-3.4)
Absolute Monos (auto) 0.9 H 10^3/uL
(0.1-0.6)
Neutrophils % 79.0 H %
(42.2-75.2)
Lymphocytes % 11.1 L %
(20.5-51.1)
PT 15.9 H Sec
(11.4-14.6)
Chloride 109 H mmol/L
(98-107)
BUN 27 H mg/dl
(9-20)
Glucose 236 H mg/dl
(70-99)
Total Bilirubin 2.4 H mg/dl
(0.2-1.3)
Alkaline Phosphatase 275 H U/L
(38-126)
Albumin 3.4 L g/dl
(3.5-5.0)
06/26/24 19:31
06/26/24 19:30
Vital Signs
Initial and Last Documented VS:
Initial Vital Signs
Temp Pulse Resp BP Pulse Ox
97.7 F 76 20 178/105 99
06/26/24 18:05 06/26/24 18:05 06/26/24 18:05 06/26/24 18:05 06/26/24 18:05
Last Documented Vital Signs
Temp Pulse Resp BP Pulse Ox
97.7 F 79 21 169/105 97
06/26/24 18:05 06/26/24 20:45 06/26/24 20:45 06/26/24 20:00 06/26/24 20:45
MDM/Problems Addressed
MDM/Problems Addressed:
Patient most likely is a viral upper respiratory tract infection, chest x-ray shows no evidence for pneumonia. His labs are reassuring, he has noted to have mild anemia however this would be more compatible with poor iron absorption in the setting
of gastritis from chronic alcohol use that would be of acute blood loss. We will increase his PPI dosage and add Carafate for suspected gastritis/PUD, do not see any indication for antibiotics for his respiratory symptoms at this time. He is also
encouraged to decrease alcohol use, he is willing to quit at this point and has a supportive spouse thus we will prescribe a Librium taper but the patient strongly encouraged not to drink if he begins starting this due to risk of excess TRUCK HOP
depression
*Critical Care Note
Total Time (30-74mins, 75-104mins- exclusive of procedures): Not Applicable
ED Attending Note
-
Portions of this chart may have been created with voice recognition software.� Occasional wrong word or��sound alike� substitutions may have occurred due to the inherent limitations of voice recognition software.
Discharge Plan
Departure
Patient Disposition: Home (Routine Discharge)
Date of Disposition: 06/26/24
Time of Disposition: 21:01
Patient with high blood pressure during this ER visit?: No
Discharge Problem:
Acute upper respiratory infection, Gastritis
Instructions: Gastritis - ED discharge instructions
Prescriptions:
New
sucralfate [Carafate] 1 gram tablet
1 g PO AC Qty: 60 0RF
chlordiazepoxide HCl 25 mg capsule
25 mg PO TID Qty: 30 0RF
Rx Instructions:
50mg PO qd x 3d, then 25mg PO qd x 3d, then 25mg PO qd prn withdrawal symptoms
No Action
omeprazole 20 mg Tablet,Delayed Release (Dr/Ec)
20 mg PO DAILY
lorazepam 0.5 MG tablet
0.5 mg PO DAILYPRN PRN (Reason: Anxiety)
Patient Comments:
10/05/23: last filled 09/20/23 for 30 tablets over 30 days
metoprolol succinate 25 MG tablet extended release 24 hr
75 mg PO DAILY
aspirin [Children's Aspirin] 81 mg Tablet,Chewable
81 mg PO DAILY Qty: 0 0RF
ibuprofen 200 mg Tablet
600 mg PO Q6HPRN PRN (Reason: mild pain)
lisinopril 5 mg Tablet
5 mg PO DAILY
folic acid 800 mcg Tablet
0.8 mg PO DAILY
Eliquis 5 mg tablet
5 mg PO BID Qty: 60 0RF
Referrals:
Emilia Little PA-C [Family Provider] -
Omar Beal MD [Active] -
Activity Restrictions/Additional Instructions:
Increase your omeprazole to 40 mg twice daily
Take the Carafate before meals
Use the Librium for withdrawal symptoms however do not begin this if you plan to continue to consume alcohol
Please begin folic acid and thiamine supplementation as well
Follow-up with the listed occupational therapy teacher
Interventions
Interventions:
*Risk Screen - Suicide Last Done: 06/26/24 18:05
*General Assessment Last Done: 06/26/24 18:05
*Neglect/Abuse Screening Last Done: 06/26/24 18:05
*ED- Fall Risk Assessment Last Done: 06/26/24 18:54
*ED COVID-19 Vaccine History Last Done: 06/26/24 18:54
*Nursing Disposition Last Done: 06/26/24 21:25
ED- Cardiac Assessment Last Done: 06/26/24 18:54
ED- Pulmonary Assessment Last Done: 06/26/24 18:54
Discharge Date and Time
Discharge Date/Time: 06/26/24 21:26
Print Language: [id number]
== END 2024-06-26 21:26 | disposition home or self-care (01) ==
LOC: EMR 18:03
PROVIDERS: Physician Assistant; EMERGENCY PHYSICIAN Emergency Medicine; FAMILY PHYSICIAN Physician Assistant
DX: J06.9 Acute upper respiratory infection, unspecified (principal); K29.70 Gastritis, unspecified, without bleeding; I10 Essential (primary) hypertension; I48.92 Unspecified atrial flutter; Z79.01 Long term (current) use of anticoagulants; Z11.52 Encounter for screening for COVID-19
CPT/HCPCS: 99284; 71046; 80053; 85025; 85610; 86850; 86900; 86901; 87502; 87811

== ENCOUNTER 2024-11-02 20:52 | Inpatient (IN) | payer OTHER, SELFPAY ==
[2024-11-02] VITALS (32 sets, daily range): BP systolic 66–201; BP diastolic 42–135; BMI 25.8
[2024-11-02] MEDS: NSS 1000 IV ×2 (19:32→20:23)
--- NOTE | 2024-11-02 19:49 | ED.GENMED ---
History of Present Illness
General
Chief Complaint: Abdominal Symptoms
Source: patient and significant other
Time Seen by Provider: 11/02/24 19:45
History of Present Illness
History of Present Illness:
54-year-old male with a history of chronic alcoholism presents emergency department with report of bright red blood vomiting that started yesterday and continues today most recently approximately an hour ago. Patient does not feel nauseous at this
time and states that he feels very tired and has chills. He states he has never had hematemesis in the past. He has noticed in the last 2 days that his stools have been dark/black. He does take aspirin but denies other antiplatelet
anticoagulation use. It is noted that he was at 1 point prescribed Eliquis but he states he has not taken that at least 6 months. He denies chest pain, shortness of breath, abdominal pain, back pain, headache, or other complaints. Patient states
that he has been advised to have an EGD in the past but declined to do so, no specific documentation of varices, gastritis, etc.
Past History
Past History
ED Past Medical History: Arrthythmia (Atrial flutter), GERD, HTN, Psychiatric (Anxiety, panic disorder) and Other (Alcohol abuse)
ED Past Surgical History: None
Social History
Tobacco: Non-smoker
Alcohol: Daily
Personal: Partner (Girlfriend of 4 years)
Living: with family
Employment: Employed (Self-employed)
Family History
Family History: Hypertension
Course
Orders/Labs/Results
Orders:
Orders
11/02/24 19:28
Electrocardiogram (*1) Urgent
Reason for Study: Syncope
Electrocardiogram (*1) Urgent
Reason for Study: Vertigo / Dizzy
Cardiac Monitoring- Treatment ONCE
EKG- Treatment ONCE
EKG- Treatment ONCE
IV Insert/Care/Rem.- Treatment PRN
O2 Therapy [RESP] Urgent
Titrate/Wean O2 to maintain O2 sat greater than (%): 93
Special Instructions: MAINTAIN CONTINOUS O2 SATS > OR = 93%
Pulse Ox/spot Check [RESP] Urgent
Quantity: 1
Special Instructions: ON ROOM AIR
11/02/24 19:32
0.9% Sodium Chloride 1000 ml [Nss] 1,000 ml IV BOLUS
11/02/24 19:35
Type+Screen Urgent
Complete Blood Count/With Diff Urgent
Comprehensive Metabolic Panel Urgent
PTT Urgent
Prothrombin Time Urgent
11/02/24 19:46
IV Insert/Care/Rem.- Treatment PRN
CefTRIAXone [Rocephin] 1,000 mg IV NOW STA
Octreotide [Sandostatin] 50 mcg IV NOW STA
Pantoprazole 80 mg/ 100 mL 8 mg/hr NOW X 1 BAG Pantoprazole 80 mg/100 ml Nss [Protonix] 80 mg in 100 ml IV NOW
Pantoprazole [Protonix IV] 80 mg IV NOW STA
Vital Signs
Initial and Last Documented VS:
Initial Vital Signs
Pulse Resp BP Pulse Ox
107 18 66/46 98
11/02/24 19:23 11/02/24 19:23 11/02/24 19:23 11/02/24 19:23
Last Documented Vital Signs
Pulse Resp BP Pulse Ox
98 13 84/51 100
11/02/24 19:27 11/02/24 19:27 11/02/24 19:27 11/02/24 19:38
*Pulse Oximetry
SaO2: 100
Oxygen Mode of Delivery: Room air
Update Note
Update Note:
Patient presents to the Emergency Department with ____hematemesis
Number and Complexity of Problems Addressed at the Encounter
� Chronic conditions affecting care:
� Acute Exacerbation and/or Progression of Chronic Illness: Chronic alcoholism
� Differential Diagnosis includes: But not limited to coagulopathy, variceal related bleeding, gastritis related bleeding, peptic ulcer related bleeding, lower GI bleed, etc. etc.
Amount and/or Complexity of Data to be Reviewed and Analyzed
� I performed an independent evaluation of and my interpretation is:
EKG: Read by me, A-fib with RVR, ST depressions noted across precordial leads particularly V2 V3 may be consistent with ischemia
CT:
Xrays:
Laboratory Studies: Severe anemia at 6.6, prerenal azotemia, hyperglycemia, diffuse LFT abnormalities
Other:
� Review of other/old records reveals: May 2023 patient was admitted and noted to be in A-fib at that time, also documented alcohol use disorder
� Clinical information was obtained by an independent historian: Girlfriend who is at bedside and shows me a picture of the extent of hematemesis from earlier today.
� Prescriptions/Medications Considered but not given:
� Further testing considered but not performed:
Risk of Complications and/or Morbidity or Mortality of Patient Management
� Social determinants of health affecting care:
� Discussion with other providers (PCP, Hospitalists, Consultants, etc):
� Escalation of care including admission/observation vs risk of discharge considered: Status post 1 L of normal saline infused systolic blood pressure is only 80. Hemoglobin resulted at 6.6, community outreach coordinator chest contacted me. Blood
bank states it will be approximately 45 minutes for a full type and screen to be done therefore decision made to do an emergent blood transfusion. Verbal consent obtained in the presence of his girlfriend who also expresses understanding.
7:59 PM contact made with gastroenterology, Dr. kaye, who is aware of case. Patient just vomited 4 ounces of bright red blood, tachycardic, hypotensive despite IV fluids. Blood is being hung now, verbal consent obtained. Octreotide, PPI, and
Rocephin ordered and being initiated. He has 3 IV lines. He is awake.
8:16 pm GI calling anesthesia and on their way in with expectation of scoping patient emergently. Patient and girlfriend updated. Hospitalist made aware. Code cart brought to bedside.
8:31 PM awaiting GI. Patient remains tachycardic with a systolic blood pressure in the 80s but is awake. He has been complaining of chest pain, ECG here shows ST depressions across precordial leads particularly V2 and V3. He is in atrial
fibrillation with a rate of approximately 141. Obviously we are unable to give the usual ACS medications at this time given his hypotension and suspected ongoing bleeding. More blood ordered, I called blood bank to expedite delivery of
ED Attending Note
-
Portions of this chart may have been created with voice recognition software.� Occasional wrong word or��sound alike� substitutions may have occurred due to the inherent limitations of voice recognition software.
Discharge Plan
Departure
Patient Disposition: GI LAB
Date of Disposition: 11/02/24
Time of Disposition: 20:32
Admit to: ICU
Presentation/result/management discussed w/ accepting MD/DO: Hospitalist
Condition: Critical
Discharge Problem:
GI bleed
Prescriptions:
No Action
omeprazole 20 mg Tablet,Delayed Release (Dr/Ec)
20 mg PO DAILY
lorazepam 0.5 MG tablet
0.5 mg PO DAILYPRN PRN (Reason: Anxiety)
Patient Comments:
10/05/23: last filled 09/20/23 for 30 tablets over 30 days
metoprolol succinate 25 MG tablet extended release 24 hr
75 mg PO DAILY
aspirin [Children's Aspirin] 81 mg Tablet,Chewable
81 mg PO DAILY Qty: 0 0RF
ibuprofen 200 mg Tablet
600 mg PO Q6HPRN PRN (Reason: mild pain)
lisinopril 5 mg Tablet
5 mg PO DAILY
folic acid 800 mcg Tablet
0.8 mg PO DAILY
Eliquis 5 mg tablet
5 mg PO BID Qty: 60 0RF
sucralfate [Carafate] 1 gram tablet
1 g PO AC Qty: 60 0RF
chlordiazepoxide HCl 25 mg capsule
25 mg PO TID Qty: 30 0RF
Rx Instructions:
50mg PO qd x 3d, then 25mg PO qd x 3d, then 25mg PO qd prn withdrawal symptoms
Referrals:
UNKNOWN - PT DOES,NOT KNOW [Family Provider]
Interventions
Interventions:
*Risk Screen - Suicide Last Done: 11/02/24 19:30
*General Assessment Last Done: 11/02/24 19:26
*Neglect/Abuse Screening Last Done: 11/02/24 19:26
*ED- Fall Risk Assessment Last Done: 11/02/24 19:25
*ED COVID-19 Vaccine History Last Done: 11/02/24 19:25
PB-Fhihzo-Qmbewidlqh Assessment Last Done: 11/02/24 19:38
ED- Cardiac Assessment Last Done: 11/02/24 19:38
ED- Pulmonary Assessment Last Done: 11/02/24 19:38
Discharge Date and Time
Print Language: MONGOLIAN
[2024-11-02 19:52] LABS: Hematocrit 19.5 % (39.0-52.0); Hemoglobin 6.6 g/dL (13.0-18.0); Mean Corp Hgb Conc. 33.8 g/dL (33.0-37.0); Mean Corpuscular Volume 91.1 fL (80.0-94.0); Nucleated Red Blood Cells % 0 % (-); Platelet Count 111 10^3/uL (130-400); Red Cell Dist. Width 13.1 % (11.5-14.5)
[2024-11-02 19:55] LABS: APTT 30.1 Sec (23.4-35.0); INR 1.52; PT 18.5 Sec (11.4-14.6)
[2024-11-02] MEDS: SANDOSTATIN 50 MCG IV (19:55)
[2024-11-02] MEDS: PROTONIX IV 80 MG IV (20:00)
[2024-11-02] MEDS: PROTONIX 100 IV (20:05)
[2024-11-02] MEDS: ROCEPHIN 1000 MG IV (20:06)
[2024-11-02 20:10] LABS: ALT (SGPT) 146 U/L (0-50); AST (SGOT) 571 U/L (17-59); Albumin 3.0 g/dl (3.5-5.0); Alkaline Phosphatase 143 U/L (38-126); Blood Urea Nitrogen 60 mg/dl (9-20); Calcium 8.9 mg/dl (8.4-10.2); Carbon Dioxide 23 mmol/L (22-30); Chloride 102 mmol/L (98-107); Estimated Creatinine Clearance 62 ml/min; Glucose 268 mg/dl (70-99); Potassium 3.9 mmol/L (3.5-5.1); Sodium 137 mmol/L (135-145); Total Protein 5.8 g/dl (6.3-8.2); eGFR 59.36
--- NOTE | 2024-11-02 20:27 | HPS.HSE ---
Family Physician
-
Family Physician: NOT KNOW UNKNOWN - PT DOES
Chief Complaint
-
Hematemesis
History of Present Illness
This is a 54-year-old with chronic alcohol dependence with prior ultrasound showing signs of cirrhosis last year, atrial fibrillation previously on anticoagulation with apixaban but discontinued over 6 months ago presents to the emergency department
with hematemesis.
According to significant other patient has been having hematemesis for over the last 24 hours. Patient is unable to tell exactly when it started. He states he has had melena this morning. He arrived in the ED after another episode of melena and
while in the ED he vomited and had 4 hours of bright red blood per rectum. Significant other shows pictures of impressive amounts of blood and clots that he had just thrown up.
He arrived in emergency department essentially in hemorrhagic shock. Currently his blood pressure is 80s over 50s, he is in atrial fibrillation and tachycardic to the 140s. He is still satting 97% on room air and is afebrile. ECG currently shows
atrial fibrillation in the 140s.
Hemoglobin 6.6, platelets 111. Electrolytes are within all normal range. BUN 60 creatinine 1.4. Glucose 200. His T. bili is 2.6 AST 570 and ALT 140. INR was 1.5.
He is received 3 L of crystalloids and is getting 2 units of blood now. He is on a Protonix drip.
Patient going to upper endoscopy emergently.
Medical History
Past Medical History
Past Medical History: Reports Arrhythmia (atrial fibrillation) and Other ( anxiety, panic disorder, alcohol use disorder, hypertension, GERD)
Past Surgical History: Reports None
Social History
Tobacco: Non-smoker
Alcohol: Daily
Drug: Marijuana
Family History
Family History: Not pertinent
Allergies / Home Medications
Allergies reflects when Allergies were last updated in [employer].
Home Medications with original date entered in [employer]
Allergy/Medication List:
Allergies
Allergy/AdvReac Type Severity Reaction Status Date / Time
chocolate flavor Allergy Unknown Unknown Verified 12/20/20 13:04
Home Medications
lisinopril 2.5 mg tablet 2.5 mg PO DAILY 05/11/23
lorazepam 0.5 mg tablet 0.5 mg PO DAILYPRN PRN Anxiety 05/11/23
metoprolol succinate 25 mg tablet,extended release 24 hr 75 mg PO DAILY 05/11/23
omeprazole 20 mg tablet,delayed release 20 mg PO DAILY 05/11/23
Review of Systems
-
Unable to obtain full review of systems at this time due to: Acuity
Physical Exam
Vital Signs
Vital Signs
Temp Pulse Resp BP Pulse Ox
98.1 F 152 21 98/55 98
11/02/24 20:09 11/02/24 20:09 11/02/24 20:09 11/02/24 20:09 11/02/24 20:09
Physical Exam
General: Appears in Distress
HEENT: NormoCephalic, Anicteric and Atraumatic
Respiratory: Clear
Cardiac: S1/S2, Irregular Rhythm and Tachycardia
Breast: Deferred by me
GI: Soft, Non Tender, Non Distended and Normal Bowel Sounds
Rectal: Deferred by Provider
Genito-urinary: Deferred by me
Musculoskeletal: No Clubbing, No Cyanosis and No Edema
Skin: Warm
Neuro: Alert and Oriented
Hematologic/Lymphatic: No Lymphadenopathy
Psych: Calm
Laboratory Results
-
11/02/24 19:35
11/02/24 19:35
Laboratory Results
PT 18.5 Sec (11.4-14.6) H 11/02/24 19:35
INR 1.52 11/02/24 19:35
APTT 30.1 Sec (23.4-35.0) 11/02/24 19:35
Total Bilirubin 2.6 mg/dl (0.2-1.3) H 11/02/24 19:35
AST 571 U/L (17-59) H* 11/02/24 19:35
ALT 146 U/L (0-50) H 11/02/24 19:35
Alkaline Phosphatase 143 U/L (38-126) H 11/02/24 19:35
Data Reviewed
-
Medical Tests (Nuc Med, Echo, EKG etc): Image Personally Visualized and interpreted
Lab Data: Labs Reviewed by me
Old Records: Reviewed
Impression/Plan
-
IMPRESSION:
54 y.o with h/o etoh dependence (last drink this am), pAFIB, likely early cirrhosis but undiagnosed officially, coming in with hematemesis and is in hemorrhagic shock at this time. He has afib but is not on any thinners. No regular follow up for
his alcoholic liver disease with evidence of acute worsening of today. No history of ascites.
PLAN:
GI bleed - Upper GI bleed. Cannot rule out variceal bleed.
- admit to icu
- NPO
- patient going for upper endoscopy now
- 2 units prbc transfused, pending another 2 units
- 3 L NS infusion
- will continue with LR now at 100 ml/hr
- ppi gtt
- octreotide gtt
- ceftriaxone 1g q24h variceal bleed ppx
- trend H&H q 6 hours and transfuse for Hgb > 7
- no thinners or aspirin and holding oral antihypertensives and metoprolol
AFIB - Uncontrolled rate at this time likely secondary to hemorrhagic shock.
- transfuse to goal hgb and keep SBP > 90 with blood and fluids for now
- can start diltiazem gtt if SBP stable and no further bleeding
- not a candidate for anticoagulation at this time
ETOH/Cirrhosis - Last drink this am. Transaminitis noted. Not currently in withdrawal
- NPO
- withdrawal protocol for now but holding off phenobarb for now
- IV thiamine/folate
DVT PPX - SCD
Code status - Full Code
[2024-11-02] MEDS: SANDOSTATIN 250 MCG IV (20:40)
--- NOTE | 2024-11-02 21:20 | CON.GI ---
Consultation
-
Date/Time Consultation Requested: 11/02/2024
Date/Time Consultation Performed: 11/02/2024
Requesting Provider:
Performing Provider:
Reason for Consultation: UGIB
Medical History
Chief Complaint / HPI
Chief Complaint: hematemesis
History of Present Illness:
This is a 54-year-old male with past medical history of PAF, anxiety, panic disorder, alcohol use disorder, hypertension, GERD presented to the emergency room with hematemesis. He says that since yesterday he has been having multiple episodes of
hematemesis and also has been having melena for the past 2 days. His girlfriend who is a RN was visiting him today and brought him into the emergency room. After he came into the ER he was hypotensive and tachycardic and his hemoglobin was 6.6, (
hb 06/26/2024 was 11.2)INR 1.52, platelets 111. he received 3 L of normal saline and also received 2 units of packed red blood cells and his blood pressure and heart rate were improving and we were consulted for emergent endoscopy. He was also
started on Protonix and octreotide drip in the ER. he did have an ultrasound in January 2024 which showed possible cirrhosis and gallstones and was also told to follow-up with GI then but unfortunately he had not followed up. He also had a visit
to the emergency room in June with hemoptysis and melena but hemoglobin was stable at that time and was told to follow-up again with GI but he did not. He also had been on Eliquis in the past for A-fib but had converted to sinus rhythm spontaneously
and also had seen cardiology in March and because of his high risk of bleeding with ongoing alcohol use and prior history of melena he was taken off of the Eliquis. He takes aspirin 81 mg daily and he also takes Motrin 200 to 400 mg 2-3 times a
day. He also drinks alcohol on a daily basis about 10 to 12 glasses of vodka since the age of 19, he has been sober for short period of time for the past couple of years but relapsed very quickly. He denies any abdominal pain currently. He was
having mild chest pain earlier which seems to have improved. No fevers or chills. He was feeling lightheaded and presyncopal prior to coming into the ER.
Past Medical History
Past Medical History: Other (PAF, anxiety, panic disorder, alcohol use disorder, hypertension, GERD)
Past Surgical History: Other (none)
Social History
Tobacco: Non-Smoker
Alcohol: Daily (10 to 12 glasses vodka daily)
Drug: Marijuana
Family History
Family History: Other (He has family history of colon polyps and second-degree relatives with colon cancer)
Allergies / Home Medications
Allergy/AdvReac Type Severity Reaction Status Date / Time
chocolate flavor Allergy Unknown Unknown Verified 06/26/24 18:05
�Medication �Instructions �Recorded
lorazepam 0.5 mg tablet 0.5 mg PO DAILYPRN PRN Anxiety 05/11/23
metoprolol succinate 25 mg 75 mg PO DAILY Blood Pressure 05/11/23
tablet,extended release 24 hr
omeprazole 20 mg tablet,delayed 20 mg PO DAILY GERD 05/11/23
release
aspirin 81 mg chewable tablet 81 mg PO DAILY #0 tabs 05/12/23
(Children's Aspirin)
apixaban 5 mg tablet (Eliquis) 5 mg PO BID #60 tabs 10/05/23
folic acid 800 mcg tablet 0.8 mg PO DAILY 10/05/23
ibuprofen 200 mg tablet 600 mg PO Q6HPRN PRN mild pain 10/05/23
lisinopril 5 mg tablet 5 mg PO DAILY 10/05/23
chlordiazepoxide HCl 25 mg capsule 25 mg PO TID #30 caps 06/26/24
sucralfate 1 gram tablet (Carafate) 1 g PO AC #60 tabs 06/26/24
Review of Systems
-
All other systems: A 12 pt ROS was Negative except as stated above in HPI
Vital Signs
Temp Pulse Resp BP Pulse Ox
98.1 F 92 21 99/76 97
11/02/24 20:09 11/02/24 20:55 11/02/24 20:55 11/02/24 20:55 11/02/24 20:55
Physical Exam
Exam
General: No Apparent Distress
HEENT: Normocephalic and Other (Mildly icteric)
Respiratory: Clear
Cardiac: Irregular Rhythm
GI: Soft, Non Tender, Non Distended and Normal Bowel Sounds
Musculoskeletal: No Clubbing
Skin: Warm
Neuro: Awake, Alert and Oriented
Results
WBC 10.8 10^3/uL (4.8-10.8) 11/02/24 19:35
Hgb 6.6 g/dL (13.0-18.0) L* 11/02/24 19:35
Hct 19.5 % (39.0-52.0) L* 11/02/24 19:35
MCV 91.1 fL (80.0-94.0) 11/02/24 19:35
Plt Count 111 10^3/uL (130-400) L 11/02/24 19:35
Absolute Neuts (auto) 7.5 10^3/uL (1.4-6.5) H 11/02/24 19:35
PT 18.5 Sec (11.4-14.6) H 11/02/24 19:35
INR 1.52 11/02/24 19:35
APTT 30.1 Sec (23.4-35.0) 11/02/24 19:35
Sodium 137 mmol/L (135-145) 11/02/24 19:35
Potassium 3.9 mmol/L (3.5-5.1) 11/02/24 19:35
Chloride 102 mmol/L (98-107) 11/02/24 19:35
Carbon Dioxide 23 mmol/L (22-30) 11/02/24 19:35
BUN 60 mg/dl (9-20) H 11/02/24 19:35
Creatinine 1.4 mg/dL (0.7-1.3) H 11/02/24 19:35
Calcium 8.9 mg/dl (8.4-10.2) 11/02/24 19:35
Total Bilirubin 2.6 mg/dl (0.2-1.3) H 11/02/24 19:35
AST 571 U/L (17-59) H* 11/02/24 19:35
ALT 146 U/L (0-50) H 11/02/24 19:35
Alkaline Phosphatase 143 U/L (38-126) H 11/02/24 19:35
Diagnostic Image Results:
01/29/2024 US abdomen
IMPRESSION:
Sonographic features of the liver suggesting cirrhosis.
Cholelithiasis. No sonographic evidence of acute cholecystitis.
Diffuse pancreatic parenchymal atrophy with distention of the main pancreatic duct and 1.4 cm calcific focus in the region of pancreatic head. Initial step for further evaluation recommended with pre- and post-IV contrast pancreatic specific CT.
Prior GI Procedures:
EGD: > 10 years ago
Colonoscopy: 10/24/2016
Impression: - Internal hemorrhoids that prolapse with straining, but
spontaneously regress to the resting position (Grade II)
found on perianal exam.
- The entire examined colon is normal.
- No specimens collected
Assessment / Plan
-
1. Upper GI bleed presented to the emergency room with large-volume hematemesis multiple episodes since last night and melena for the past 2 days and was hemodynamically unstable initially and was stabilized after 3 L of normal saline and 2 units
of packed red blood cells. His INR is 1.52 will likely also need FFP. his hemoglobin in June was 11.2. Given his prior history of possible cirrhosis noted on imaging with history of alcoholism concern for possible esophageal or gastric varices and
gastropathy but also need to rule out possible PUD given that he does take an aspirin and Motrin daily. He has been off Eliquis since March. Will schedule him for an emergent endoscopy. He is currently on Protonix drip and octreotide drip.
2. Abnormal LFTs predominantly elevated AST consistent with alcohol hepatitis and cirrhosis on prior US. his MELD 3.0 is 18. His last drink of alcohol was today morning. He does drink about 10-12 vodka glasses every day since the age of 19 with
short periods of abstinence but relapsed quickly. Will need alcohol withdrawal prophylaxis has been started on thiamine and folic acid. Trend LFTs will also get hepatitis serologies
3. He did have gallstones on prior ultrasound but currently asymptomatic from it
Data Reviewed
-
Ultrasound: Report Reviewed by me
-
-
Thank you for consultation and allowing me to participate in the patient's care. Please call the information systems director GI physician during the after hours with any questions or concerns.
[2024-11-02 22:17] LABS: Fibrinogen 252 MG/DL (199-459)
[2024-11-02] MEDS: SUBLIMAZE 80 MCG IV (22:33)
[2024-11-02] MEDS: SUBLIMAZE 100 IV (22:35)
[2024-11-02] MEDS: LR 1000 IV (22:40)
[2024-11-02 22:53] LABS: GGTP 930 U/L (15-73)
[2024-11-02] MEDS: SUBLIMAZE 50 MCG IV ×2 (22:57→23:29)
--- NOTE | 2024-11-02 23:00 | PTCARENOTE ---
pt admitted from GI lab, arrived intubated #8 ett @ 25cm, MV AC 16/450/50/5, Sat 100%. suctioned for lg amt tk/white secretions. +coughing/restless, SBP as high as 201- Fent bolus/gtt per APR. LA IV x 2, RA IV x 1 WNL- protonix gtt/octreotide gtt
infusing. bladder scan 266, #25 condom cath applied. pt for tx to [facility], care ongoing.
[2024-11-02] MEDS: DIPRIVAN 100 IV (23:16)
[2024-11-02 23:24] LABS: Venous Blood Gas B.E. -5.0 mmol/L (-4 to +4); Venous Blood Gas O2 Sat % 99.9 %
[2024-11-02 23:33] LABS: Hematocrit 24.7 % (39.0-52.0); Hemoglobin 8.7 g/dL (13.0-18.0)
[2024-11-02 23:39] LABS: Triglycerides 153 mg/dl (10-149)
[2024-11-03] VITALS: BP 81/56
--- NOTE | 2024-11-03 00:01 | PTCARENOTE ---
awaiting cloth picker from [facility].
[2024-11-03 00:15] VITALS: BP 73/48
[2024-11-03 00:16] VITALS: BP 77/50
[2024-11-03] MEDS: LEVOPHED 250 IV (00:20)
[2024-11-03 00:30] VITALS: BP 94/63
--- NOTE | 2024-11-03 01:13 | PTCARENOTE ---
report given to Claudio RN, pt for transport to [place] [id number] via [facility] ground transport.
--- NOTE | 2024-11-03 06:57 | W.DCSUMMARY ---
Discharge Summary
Discharge Data
Date of Admission: 11/02/24
Date of Discharge: 11/03/24
Total time spent discharging patient (in min): less than 30 minutes
-
Pending Results: No
Hospital Course
54-year-old with chronic alcohol dependence with prior ultrasound showing signs of cirrhosis last year, atrial fibrillation previously on anticoagulation with apixaban but discontinued over 6 months ago presents to the emergency department with
hematemesis. Patient arrived hypotensive, hemoglobin of 6.6 with positive melena. Was still vomiting blood while in the emergency department. He was seen atrial fibrillation with rapid ventricular response. He complained of some chest pressure
and ECG showed some ST depressions.
Suspect massive upper GI bleed. GI consulted. Patient was typed and screened. Started very rapid transfusion with 2 units packed red blood cells initially. Received of resuscitation with 3 L of crystalloid. He was started on pantoprazole drip,
octreotide drip. He received prophylactic ceftriaxone.
Patient was taken to the GI suite, intubated electively for procedure and had a EGD showing gastric varices that requires definitive treatment with TIPS.
Post op and repeat Hgb was 8.6. Patient required low dose pressors after Intubation. Placed on withdrawal protocol.
GI specialist discussed with specialist at [facility] and patient accepted for transfer to ICU there.
Discharge Plan
-
Patient Disposition: Acute Care Hospital
Discharge Orders:
Discharge Patient (As Directed); Ordered 11/03/24
Ordered By: Felipe Regan
Discharge Date and Time
Discharge Date/Time: 11/03/24 01:20
Print Language: ARMENIAN
--- NOTE | 2024-11-04 08:48 | CM ---
Discharged to [facility] on 11/03/24 for specialized acute care services.
== END 2024-11-03 01:20 | disposition short-term general hospital (02) | DRG 432 ==
LOC: ICU 20:52
PROVIDERS: Nurse Practitioner Primary Care; ADMITTING PHYSICIAN Internal Medicine; CONSULT PHYSICIAN Internal Medicine Gastroenterology; EMERGENCY PHYSICIAN Emergency Medicine
PROC: 0BH17EZ Insertion of Endotracheal Airway into Trachea, Via Natural or Artificial Opening (ICD-10-PCS; 2024-11-02)
PROC: 30233N1 Transfusion of Nonautologous Red Blood Cells into Peripheral Vein, Percutaneous Approach (ICD-10-PCS; 2024-11-02)
PROC: 0DJ08ZZ Inspection of Upper Intestinal Tract, Via Natural or Artificial Opening Endoscopic (ICD-10-PCS; 2024-11-02)
PROC: 5A1935Z Respiratory Ventilation, Less than 24 Consecutive Hours (ICD-10-PCS; 2024-11-02)
PROC: 30233K1 Transfusion of Nonautologous Frozen Plasma into Peripheral Vein, Percutaneous Approach (ICD-10-PCS; 2024-11-03)
DX: K70.30 Alcoholic cirrhosis of liver without ascites (principal); I85.11 Secondary esophageal varices with bleeding; R57.8 Other shock; K76.6 Portal hypertension; I48.92 Unspecified atrial flutter; K92.0 Hematemesis; K92.1 Melena; D62 Acute posthemorrhagic anemia; F10.20 Alcohol dependence, uncomplicated; F41.0 Panic disorder [episodic paroxysmal anxiety]; I10 Essential (primary) hypertension; K21.9 Gastro-esophageal reflux disease without esophagitis; K31.89 Other diseases of stomach and duodenum; I48.0 Paroxysmal atrial fibrillation; K80.20 Calculus of gallbladder without cholecystitis without obstruction; K64.8 Other hemorrhoids; I86.4 Gastric varices; K70.10 Alcoholic hepatitis without ascites; Z79.82 Long term (current) use of aspirin; Z91.02 Food additives allergy status; Z80.0 Family history of malignant neoplasm of digestive organs; Z83.719 Family history of colon polyps, unspecified; Z79.899 Other long term (current) drug therapy
CPT/HCPCS: 80053; 82805; 82977; 84478; 85014; 85018; 85025; 85384; 85610; 85730; 86850; 86900; 86901; 86920; 86927; 93005; 94002; 94003; 94760; 96365; 96375; 99285; J2354; P9016; P9059

== ENCOUNTER 2025-01-10 16:55 | Inpatient (IN) | payer OTHER, SELFPAY ==
[2025-01-09 18:30] VITALS: BP 166/106
[2025-01-09 18:35] LABS: Glucose - Point of Care 170 mg/dl (70-99)
[2025-01-09 18:59] LABS: Ammonia 24 umol/L (9-30)
[2025-01-09 19:01] LABS: ALT (SGPT) 24 U/L (0-50); AST (SGOT) 65 U/L (17-59); Albumin 3.3 g/dl (3.5-5.0); Alkaline Phosphatase 448 U/L (38-126); Blood Urea Nitrogen 9 mg/dl (9-20); Calcium 8.0 mg/dl (8.4-10.2); Carbon Dioxide 24 mmol/L (22-30); Chloride 103 mmol/L (98-107); Glucose 177 mg/dl (70-99); Potassium 3.5 mmol/L (3.5-5.1); Sodium 135 mmol/L (135-145); Total Protein 7.1 g/dl (6.3-8.2); eGFR > 60.00
[2025-01-09 19:04] LABS: Hematocrit 29.3 % (39.0-52.0); Hemoglobin 9.9 g/dL (13.0-18.0); Mean Corp Hgb Conc. 33.8 g/dL (33.0-37.0); Mean Corpuscular Volume 80.3 fL (80.0-94.0); Nucleated Red Blood Cells % 0 % (-); Red Cell Dist. Width 14.5 % (11.5-14.5)
[2025-01-09 19:08] VITALS: BP 151/102
[2025-01-09 19:10] VITALS: BMI 26.6
[2025-01-09 19:31] LABS: Platelet Count 82 10^3/uL (130-400)
[2025-01-09 20:00] VITALS: BP 132/84
[2025-01-09 21:41] LABS: Magnesium 1.0 mg/dl (1.6-2.3)
--- NOTE | 2025-01-09 21:48 | ED.GENMED ---
History of Present Illness
<Susie Guzman PA-C - Last Filed: 01/10/25 01:22>
General
Chief Complaint: Change in Mental Status
Source: patient and significant other
Exam Limitations: none
Time Seen by Provider: 01/09/25 20:10
Nursing documentation reviewed up to this point in time: agreed with
History of Present Illness
History of Present Illness:
Patient is a 54-year-old male with past medical history of alcoholic cirrhosis, esophageal varices, recent ICU admission in November at [facility] at which time he underwent a TIPS procedure, A-fib not currently anticoagulated, who presents to the
emergency department from home accompanied by his significant other who is a nurse for evaluation of pain and confusion. Patient reports ever since his TIPS procedure, he has had pain in his arms including his shoulders. Patient reports that the
pain is severe and keeps him from sleeping. Patient has been prescribed gabapentin and other medications without significant improvement in his pain. Patient reports that it feels like he worked out really hard, but he reports he has not.
Significant other also reports the patient has been intermittently confused. She reports that the patient called her today and seemed confused and kept saying I just do not know what is going on and therefore she decided to bring him to the
emergency department for evaluation. Patient reportedly was sober for 61 days but then relapsed last weekend and his last drink was yesterday. Patient denies fevers or chills. Patient denies abdominal pain, nausea, vomiting, change in his bowel
habits. He reports decreased oral intake of food and water. Patient states that he has had a decreased appetite. Patient denies chest pain or shortness of breath. Patient denies recent lower extremity edema. Patient reports that he has not been
able to follow-up since he was discharged from [facility]. He states he is currently uninsured.
Past History
<Susie Guzman PA-C - Last Filed: 01/10/25 01:22>
Past History
ED Past Medical History: Arrthythmia (Atrial flutter), GERD, HTN, Psychiatric (Anxiety, panic disorder) and Other (Alcohol abuse)
ED Past Surgical History: None
Social History
Tobacco: Non-smoker
Alcohol: Daily
Drug: Other (Admits to smoking crystal methamphetamine 2 days ago(04/2020))
Personal: Partner (Girlfriend of 4 years)
Living: with family
Employment: Employed (Self-employed)
Family History
Family History: Hypertension
Review of Systems
<Susie Gzuman PA-C - Last Filed: 01/10/25 01:22>
Review of Systems
All Other Systems: Not applicable
Constitutional: Reports no symptoms; Denies fever or chills
EENT: Reports no symptoms
Respiratory: Reports no symptoms; Denies trouble breathing
Cardiac: Reports no symptoms; Denies chest pain or syncope
ABD/GI: Reports no symptoms; Denies abdominal pain, nausea or vomiting
: Reports no symptoms
Musculoskeletal: Reports other (bilateral upper extremity pain)
Skin: Reports no symptoms
Neurological: Reports no symptoms
Endocrine: Reports no symptoms
Hematologic/Lymphatic: Reports no symptoms
Psychiatric: Reports no symptoms
Phy Exam
<Susie Guzman PA-C - Last Filed: 01/10/25 01:22>
General Physical Exam
General Presentation: well appearing and no apparent distress
General Skin: warm and dry
General Habitus: normal
General Mental: alert
General Hydration: appears well hydrated
ENT Exam
ENT Exam: EOMI, pharynx normal, neck supple and normocephalic
Eye Exam
Eye Exam: PERRL, cornea clear and conjunctiva normal
Cardiovascular Exam
Cardiovascular Exam: regular rate/rhythm, no edema, no murmur and normal peripheral pulses
Pulmonary Exam
Pulmonary Exam: lungs clear, no respiratory distress, no rales, no crackles, no rhonchi, no stridor, no wheezing and no cough
Gastrointestinal Exam
Gastrointestinal Exam: normal bowel sounds, non tender, soft, no organomegaly, no pulsatile mass and non distended
Neurological Exam
Neurological Exam: alert, oriented x3, no motor deficits and speech normal
Musculoskeletal Exam
Musculoskeletal Exam: full ROM and no edema
Skin Exam
Skin Exam: normal color, warm/dry, no rash and no petechia
Psychiatric Exam
Psychiatric Exam: normal mood/affect
Course
<Susie Guzman PA-C - Last Filed: 01/10/25 01:22>
Orders/Labs/Results
Orders:
Orders
01/09/25 18:37
Ammonia Urgent
Complete Blood Count/With Diff Urgent
Comprehensive Metabolic Panel Urgent
Creatine Phosphokinase Urgent
Comment: ADD ON
Magnesium Urgent
Comment: ADD ON
01/09/25 21:11
Add On- LAB Urgent
Tests Added?: CK
Add On- LAB Urgent
Tests Added?: magnesium level
Morphine Sulfate 4 mg IV NOW STA
01/09/25 22:00
Electrocardiogram (*1) Stat
Reason for Study: Other
Other Reason for Exam: arm pain
EKG- Treatment ONCE
Magnesium Oxide 400 mg PO NOW STA
01/09/25 22:01
Electrocardiogram (*1) Urgent
Reason for Study: QTc Monitoring
Other Reason for Exam: low Magnesium
01/09/25 22:56
CT Head W/o Iv Contrast Urgent
Comment:
Reason For Exam: intermittent confusion, hx of severe liver ds
01/10/25 00:30
Lorazepam [Ativan] 1 mg PO NOW STA
01/10/25 00:48
0.9% Sodium Chloride 1000 ml [Nss] 1,000 ml IV BOLUS
01/10/25 00:51
Troponin I Urgent
Abnormal Lab Results
01/09/25 01/09/25
18:33 18:37
WBC 4.5 L 10^3/uL
(4.8-10.8)
RBC 3.65 L 10^6/uL
(4.70-6.10)
Hgb 9.9 L g/dL
(13.0-18.0)
Hct 29.3 L %
(39.0-52.0)
Plt Count 82 L 10^3/uL
(130-400)
Glucose 177 H mg/dl
(70-99)
Calcium 8.0 L mg/dl
(8.4-10.2)
Magnesium 1.0 L mg/dl
(1.6-2.3)
Total Bilirubin 3.1 H mg/dl
(0.2-1.3)
AST 65 H U/L
(17-59)
Alkaline Phosphatase 448 H U/L
(38-126)
Albumin 3.3 L g/dl
(3.5-5.0)
POC Glucose 170 H mg/dl
(70-99)
01/09/25 18:37
01/09/25 18:37
Vital Signs
Initial and Last Documented VS:
Initial Vital Signs
Temp Pulse Resp BP Pulse Ox
97.8 F 106 16 166/106 100
01/09/25 18:30 01/09/25 18:30 01/09/25 18:30 01/09/25 18:30 01/09/25 18:30
Last Documented Vital Signs
Temp Pulse Resp BP Pulse Ox
97.6 F 111 17 153/103 98
01/10/25 00:00 01/10/25 00:42 01/10/25 00:42 01/10/25 00:07 01/10/25 00:42
<Veto Lim MD - Last Filed: 01/10/25 01:18>
Orders/Labs/Results
Orders:
Orders
01/09/25 18:37
Ammonia Urgent
Complete Blood Count/With Diff Urgent
Comprehensive Metabolic Panel Urgent
Creatine Phosphokinase Urgent
Comment: ADD ON
Magnesium Urgent
Comment: ADD ON
01/09/25 21:11
Add On- LAB Urgent
Tests Added?: CK
Add On- LAB Urgent
Tests Added?: magnesium level
Morphine Sulfate 4 mg IV NOW STA
01/09/25 22:00
Electrocardiogram (*1) Stat
Reason for Study: Other
Other Reason for Exam: arm pain
EKG- Treatment ONCE
Magnesium Oxide 400 mg PO NOW STA
01/09/25 22:01
Electrocardiogram (*1) Urgent
Reason for Study: QTc Monitoring
Other Reason for Exam: low Magnesium
01/09/25 22:56
CT Head W/o Iv Contrast Urgent
Comment:
Reason For Exam: intermittent confusion, hx of severe liver ds
01/10/25 00:30
Lorazepam [Ativan] 1 mg PO NOW STA
01/10/25 00:48
0.9% Sodium Chloride 1000 ml [Nss] 1,000 ml IV BOLUS
01/10/25 00:51
Troponin I Urgent
Abnormal Lab Results
01/09/25 01/09/25
18:33 18:37
WBC 4.5 L 10^3/uL
(4.8-10.8)
RBC 3.65 L 10^6/uL
(4.70-6.10)
Hgb 9.9 L g/dL
(13.0-18.0)
Hct 29.3 L %
(39.0-52.0)
Plt Count 82 L 10^3/uL
(130-400)
Glucose 177 H mg/dl
(70-99)
Calcium 8.0 L mg/dl
(8.4-10.2)
Magnesium 1.0 L mg/dl
(1.6-2.3)
Total Bilirubin 3.1 H mg/dl
(0.2-1.3)
AST 65 H U/L
(17-59)
Alkaline Phosphatase 448 H U/L
(38-126)
Albumin 3.3 L g/dl
(3.5-5.0)
POC Glucose 170 H mg/dl
(70-99)
01/09/25 18:37
01/09/25 18:37
Vital Signs
Initial and Last Documented VS:
Initial Vital Signs
Temp Pulse Resp BP Pulse Ox
97.8 F 106 16 166/106 100
01/09/25 18:30 01/09/25 18:30 01/09/25 18:30 01/09/25 18:30 01/09/25 18:30
Last Documented Vital Signs
Temp Pulse Resp BP Pulse Ox
97.6 F 111 17 153/103 98
01/10/25 00:00 01/10/25 00:42 01/10/25 00:42 01/10/25 00:07 01/10/25 00:42
<Susie Guzman PA-C - Last Filed: 01/10/25 01:22>
*Pulse Oximetry
SaO2: 98
Oxygen Mode of Delivery: Room air
Patient hypoxic: no
*Critical Care Note
Total Time (30-74mins, 75-104mins- exclusive of procedures): Not Applicable
<Susie Guzman PA-C - Last Filed: 01/10/25 01:22>
Update Note
Update Note:
Patient is a 54-year-old male with a complex medical history that includes alcoholic cirrhosis, esophageal varices, with recent TIPS procedure performed 2 months ago at [facility], who presents to the emergency department accompanied by his significant
other from home for evaluation of bilateral arm pain and intermittent confusion ever since his TIPS procedure. Patient denies any abdominal pain, nausea, vomiting, change in his bowel habits. Patient denies any fevers or chills. Patient admits
that he was sober for 61 days but recently relapsed and has been drinking recently. On arrival, patient is mildly hypertensive, afebrile. On examination, the patient is well-appearing, he is in no acute distress, he has full range of motion of
both upper extremities, he is neurovascularly intact, he has a normal cardiopulmonary exam, he is oriented x 3 without evidence of confusion at the time of my examination. Labs were obtained while the patient was in the waiting room and are
notable for hemoglobin of 9.9 which is actually better than the patient's baseline. Platelet count is low at 82,000, magnesium level is low at 1.0, will replete. Total bilirubin and alk phos is elevated. CK level was added on and is with normal
limits. Ammonia level is not elevated. Patient's pain does seem improved with the administration of morphine. CT of the head was also performed and demonstrates no acute abnormality. Plan initially for discharge of the patient with close
outpatient follow-up for definitive diagnosis and treatment. However, on reevaluation patient is more tachycardic, tremulous, with tongue fasciculations. Patient has a CIWA score of 5. Patient states that he does not plan to go home and drink.
He does not want to go to rehab today, stating that it does not work for him. He reports that he has been through alcohol withdrawal in the past. He denies any history of alcohol withdrawal seizures. Will give a dose of Ativan, along with a liter
of fluids and admit to the hospital for further management of alcohol withdrawal. Patient also notes that the pain in his arm seem to be migrating into the left anterior chest, will check troponin as well. Patient signed out to the hospitalist
without complication.
ED Attending Note
<Susie Guzman PA-C - Last Filed: 01/10/25 01:22>
-
Portions of this chart may have been created with voice recognition software.� Occasional wrong word or��sound alike� substitutions may have occurred due to the inherent limitations of voice recognition software.
<Veto Lim MD - Last Filed: 01/10/25 01:18>
ED Attending Note
Patient seen and examined by attending physician: Yes
ED Attending Note:
I have seen and evaluated the patient with a [id number] encounter. I have spoken to the advance practicer provider and involved in the medical history, the physical exam, medical decision making.
Evaluation and management service: agree unless noted differently below.
Results interpretation: agree unless noted differently below.
Focused HPI: 54-year-old male with history as noted significant for cirrhosis status post TIPS procedure, alcohol abuse who presents to the ER for evaluation of multiple complaints�chief among them is bilateral arm pain, intermittent confusion,
recent elevated blood sugars and he believes he is having some mild withdrawal symptoms as well. He had a complicated admission in November requiring transfer to [facility] he was intubated and on pressors for a time and at that point underwent TIPS
procedure downtown. He says he has been doing generally well since although for the past few weeks he has been dealing with bilateral arm pains that he describes as soreness 'like I just went to the gym.' He says pain was rather intense today and
that this intense pain was one of the primary drivers of his ER visit reji. His family is also concerned that he has had waxing and waning confusion over the past few days. He says his blood sugars have been running high occasionally reading as
high as 500. He also feels he is undergoing alcohol withdrawal�he had been sober for 60 days but over the past week he says he fell off the wagon and has been drinking once again. He says his last drink was Monday evening. Describes feeling
tremulous, anxious, nauseous.
Physical exam: Awake and alert, nontoxic. Hypertensive, tachycardic. He is tremulous. Skin dry and warm. Abdomen soft and nontender.
Medical Decision Makin-year-old male presents for evaluation of arm pains, intermittent confusion, concern for mild withdrawal. Vitals and exam as above. Labs here are essentially stable�he has anemia and thrombocytopenia which are stable,
hypomagnesemia which is chronic and not worse than usual. LFTs stably abnormal. CT head no acute abnormality. With intermittent confusion could be alcohol hallucinosis or simply alcohol related (i.e. drinking and seeming confused to his family).
Given Ativan for withdrawal will admit for monitoring and treatment of alcohol withdrawal.
Discharge Plan
Departure
Patient Disposition: Admit
Date of Disposition: 01/10/25
Time of Disposition: 01:08
Presentation/result/management discussed w/ accepting MD/DO: Hospitalist
Patient with high blood pressure during this ER visit?: No
Condition: Good
Covid-19: Not Applicable
Discharge Problem:
Alcohol withdrawal, Bilateral arm pain, Intermittent confusion
Instructions: Altered Mental Status (DC), Musculoskeletal Pain
Prescriptions:
No Action
omeprazole 20 mg Tablet,Delayed Release (Dr/Ec)
20 mg PO DAILY
lorazepam 0.5 MG tablet
0.5 mg PO DAILYPRN PRN (Reason: Anxiety)
Patient Comments:
10/05/23: last filled 09/20/23 for 30 tablets over 30 days
metoprolol succinate 25 MG tablet extended release 24 hr
75 mg PO DAILY
aspirin [Children's Aspirin] 81 mg Tablet,Chewable
81 mg PO DAILY Qty: 0 0RF
ibuprofen 200 mg Tablet
600 mg PO Q6HPRN PRN (Reason: mild pain)
lisinopril 5 mg Tablet
5 mg PO DAILY
folic acid 800 mcg Tablet
0.8 mg PO DAILY
Eliquis 5 mg tablet
5 mg PO BID Qty: 60 0RF
sucralfate [Carafate] 1 gram tablet
1 g PO AC Qty: 60 0RF
chlordiazepoxide HCl 25 mg capsule
25 mg PO TID Qty: 30 0RF
Rx Instructions:
50mg PO qd x 3d, then 25mg PO qd x 3d, then 25mg PO qd prn withdrawal symptoms
Referrals:
Emilia Little PA-C [Family Provider, Internal Medicine]
Activity Restrictions/Additional Instructions:
You were seen in the emergency department for evaluation of pain in both of your arms as well as some intermittent confusion. While you were in the emergency department your blood work did show several abnormalities including low platelet counts,
low magnesium, elevated bilirubin, and elevated alkaline phosphatase. You also had a CT of your head which shows no dangerous abnormalities and an EKG which shows no signs of heart attack or dangerous heart rhythm. The exact cause of your symptoms
are not entirely clear but we do feel it is safe for you to be discharged home. We do recommend that you follow-up closely with your doctors including your primary care provider as well as your stock drier tender for further evaluation and
definitive diagnosis and treatment. In the meantime, please return to the emergency department immediately if you develop a fever greater than 100.4 degrees �F, if you have increased confusion, if you have chest pain, shortness of breath, severe
abdominal pain, persistent vomiting, you are vomiting up blood, or for any worsening or concerning symptoms.
Interventions
Interventions:
*Risk Screen - Suicide Last Done: 01/09/25 18:32
*Neglect/Abuse Screening Last Done: 01/09/25 18:32
[facility] Risk Assessment Tool Last Done: 01/09/25 19:11
ED- Cardiac Assessment Last Done: 01/09/25 19:32
ED- Neurological Assessment Last Done: 01/09/25 19:18
ED- Pulmonary Assessment Last Done: 01/09/25 19:32
ED Swallowing Screen Last Done: 01/09/25 19:32
Discharge Date and Time
Print Language: SLOVAK
[2025-01-09 21:49] VITALS: BP 140/102
[2025-01-09] MEDS: MORPHINE SULFATE 4 MG IV (21:50)
[2025-01-09 22:00] VITALS: BP 141/95
[2025-01-09] MEDS: MAGNESIUM OXIDE 400 MG PO (22:18)
[2025-01-09 23:00] VITALS: BP 152/93
[2025-01-10] VITALS (14 sets, daily range): BP systolic 120–165; BP diastolic 73–112; BMI 26.6; BMI 24.6
[2025-01-10] MEDS: ATIVAN 1 MG PO ×4 (00:44→18:07)
[2025-01-10] MEDS: NSS 1000 IV (00:54)
[2025-01-10 01:31] LABS: Troponin I < 0.012 ng/ml
--- NOTE | 2025-01-10 02:29 | HPS.HSE ---
Family Physician
-
Family Physician: Emilia Little
Chief Complaint
-
Confusion
History of Present Illness
This is a 54-year-old male with past medical history significant for prior diagnosis of atrial fibrillation, alcohol dependence with cirrhosis status post variceal bleeding and now status post TIPS in October who presents to the emergency
department with intermittent confusion and bilateral upper extremity pain.
According to patient he has been having pain in his bilateral arms intermittently over the last several weeks. He reports that this is associated with dorsal weakness as well as sensation of soreness in his upper extremities. There is no swelling
at the shoulders or distally. Reports trace edema in his lower extremities. He denies any fevers or chills.
Patient was free of alcohol use for about 60 days. He started drinking recently and he states that he drinks about 2 bottles of beer daily except for the last 3 days and when he drank a full bottle of vodka until blacking out. His last drink was
today. He reports compliance with his medications otherwise including his lactulose. He reports decreased p.o. intake. He denies any focal neurodeficits. He denies feeling dizzy or lightheaded. He denies any increased abdominal swelling. He
denies any melena or hematochezia.
Patient reported that his apixaban and aspirin were discontinued by his jigman. He is metoprolol was also discontinued. His lisinopril was discontinued. Spouse reported as his glucose has been intermittently elevated.
In the emergency department he was initiated on a evaluated and had no acute findings and was about to be discharged when they found that he was persistently tachycardic and had some tremulousness concerning for acute withdrawal.
His vital signs showed a blood pressure of 150/100 with a pulse rate of 114 and oxygen saturation of 98% on room air at rest. ECG showed a sinus rhythm at rate of 98 with a QTc of [address] or T wave changes. His magnesium was markedly low
at 1.0, LFTs were unremarkable and similar to prior. Ammonia was normal. CBC was unremarkable with stable hemoglobin of 9.9 compared to prior. Electrolytes BUN and creatinine were unremarkable. Glucose was 177. CT of the head was negative
Medical History
Past Medical History
Past Medical History: Reports Arrhythmia (atrial fibrillation) and Other ( anxiety, panic disorder, alcohol use disorder, hypertension, GERD)
Additional Past Medical History:
Liver cirrhosis status post gastric variceal bleeding and status post TIPS
Past Surgical History: Reports None
Social History
Tobacco: Non-smoker
Alcohol: Daily
Drug: Marijuana
Family History
Family History: Not pertinent
Allergies / Home Medications
Allergies reflects when Allergies were last updated in [facility].
Home Medications with original date entered in [facility]
Allergy/Medication List:
Allergies
Allergy/AdvReac Type Severity Reaction Status Date / Time
chocolate flavor Allergy Unknown Unknown Verified 06/26/24 18:05
Home Medications
folic acid 800 mcg tablet 0.8 mg PO DAILY 10/05/23
Trazodone 25 mg tablets, 25 mg p.o. at bedtime
Gabapentin 20 mg tablet, 300 mg p.o. 3 times daily
Magnesium oxide 400 tablets, 400 mg p.o. in the morning and 800 mg p.o. in the afternoon
Review of Systems
-
Constitutional: Reports No Symptoms
EENT: Reports No Symptoms
Respiratory: Reports No Symptoms
Cardiac: Reports No Symptoms
Abdomen/GI: Reports No Symptoms
: Reports No Symptoms
Musculoskeletal: Reports Joint Pain and Muscle Pain
Skin: Reports No Symptoms
Neurological: Reports No Symptoms
Endocrine: Reports No Symptoms
Hematologic/Lymphatic: Reports No Symptoms
Psych: Reports No Symptoms
Physical Exam
Vital Signs
Vital Signs
Temp Pulse Resp BP Pulse Ox
97.7 F 111 17 153/103 98
01/10/25 02:27 01/10/25 00:42 01/10/25 00:42 01/10/25 00:07 01/10/25 00:42
Physical Exam
General: Well Developed, Well Nourished, No Apparent Distress and Comfortable
HEENT: NormoCephalic, Anicteric and Atraumatic; No Oxygen
Respiratory: Clear
Cardiac: S1/S2, Regular Rhythm and Tachycardia
Breast: Deferred by me
GI: Soft, Non Tender, Non Distended and Normal Bowel Sounds
Rectal: Deferred by Provider
Genito-urinary: Deferred by me
Musculoskeletal: No Clubbing, No Cyanosis and Edema, Right Lower Extremity (Trace edema)
Skin: Warm
Neuro: AO x 3 and Nonfocal/grossly intact
Hematologic/Lymphatic: No Lymphadenopathy
Psych: Anxious
Laboratory Results
-
01/09/25 18:37
01/09/25 18:37
Laboratory Results
Total Bilirubin 3.1 mg/dl (0.2-1.3) H 01/09/25 18:37
AST 65 U/L (17-59) H 01/09/25 18:37
ALT 24 U/L (0-50) 01/09/25 18:37
Alkaline Phosphatase 448 U/L (38-126) H 01/09/25 18:37
Troponin I < 0.012 ng/ml 01/10/25 00:51
Impression/Plan
-
IMPRESSION:
54-year-old with history of alcohol cirrhosis status post TI PS for gastric varices who presents to the emergency department with soreness and achiness of the bilateral shoulder joints, intermittent chest discomfort with negative cardiac workup in
the Emergency Department but found to be tremulous and tachycardic concerning for development of withdrawal. Patient has been drinking regularly again over the last few weeks and persistently over the last 2 to 3 days. LFTs unremarkable, ammonia
normal, electrolyte BUN/creatinine normal, CBC unremarkable. CT of the head negative
PLAN:
Alcohol withdrawal -early alcohol withdrawal, unknown last drinking but within the last 24 hours to 48 hours. Currently msas = 5
- admit to telemetry observation
- continue with msas protocol
- lorazepam based withdrawal protocol
- continue thiamine and folate
- patient wants to return to AA as he was succesful for about 2 months
Hypomagnesemia - Suspect chronic and possibly non compliant with mag ox with ongoing etoh us
- give 1 gm mag sulfate
- continue oral supplementation with 800 magOx bid
- Keep K > 4.0
Shoulder pain/weakness
- check esr for possible pmr
- pain control
- etoh cessation
Cirrhosis complicated by gastric varices status post TIPS
- continue lactulose tid
Hyperglycemia
- check a1c
- sliding scale insulin for now
DVT PPX - SCD
Code status - Full Code
[2025-01-10] MEDS: MAGNESIUM SULFATE 100 IV ×2 (03:25→16:02)
[2025-01-10] MEDS: KCL 20 MEQ PO (03:25)
[2025-01-10] MEDS: ATIVAN 1 MG IV (03:26)
[2025-01-10] MEDS: NSS (PRESERVATIVE FREE) 0.5 ML IV (03:26)
[2025-01-10] MEDS: TYLENOL 650 MG PO (04:04)
[2025-01-10] MEDS: NEURONTIN 300 MG PO ×3 (04:05→21:34)
[2025-01-10 06:11] LABS: Hematocrit 24.3 % (39.0-52.0); Hemoglobin 8.4 g/dL (13.0-18.0); Mean Corp Hgb Conc. 34.6 g/dL (33.0-37.0); Mean Corpuscular Volume 80.2 fL (80.0-94.0); Platelet Count 63 10^3/uL (130-400); Red Cell Dist. Width 14.6 % (11.5-14.5)
[2025-01-10 06:32] LABS: Blood Urea Nitrogen 8 mg/dl (9-20); Calcium 7.3 mg/dl (8.4-10.2); Carbon Dioxide 25 mmol/L (22-30); Chloride 108 mmol/L (98-107); Estimated Creatinine Clearance 108 ml/min; Glucose 205 mg/dl (70-99); Magnesium 1.3 mg/dl (1.6-2.3); Potassium 3.7 mmol/L (3.5-5.1); Sodium 138 mmol/L (135-145); eGFR > 60.00
--- NOTE | 2025-01-10 07:13 | W.PN.HOSP.TC ---
Addendum entered and electronically signed by Chloe Devlin MD 01/10/25 18:08:
I saw and evaluated the patient independently. I reviewed and discussed the resident�s note and agree with findings and plan as documented by Dr. Espinal.
GENERAL: well developed, well nourished, male in no apparent distress--no jaundice
HEENT: NC/AT
HEART: regular rate and rhythm, +S1, +S2
LUNGS : clear to auscultation bilaterally
ABDOM: soft, nontender, nondistended, + bowel sounds
EXT: no cyanosis, clubbing, or edema
NEUROLOGIC: grossly intact--no tremors, no asterixis
Possible alcohol withdrawal from ETOH relapse--was sober 60 days followed by restarting drinking--cont MSAS protocol--receiving ativan--cont thiamine and folic acid--needs to stay sober
Hypomagnesemia/Hypocalcemia--likely from ETOH--replete as needed
Shoulder pain/weakness --likely from hypokalemia/hypomag--replete
Cirrhosis s/p TIPS--ammonia is normal--cont lactulose
Hyperglycemia, likely T2DM- A1c 9.8% indicates poorly controlled diabetes- on insulin aspart sliding scale- will need to outpatient follow-up
Code status - Full Code
DVT proph - SCDs
Original Note:
Today's Communication/Plan
-
- replete electrolytes
- MSAS
- insulin sliding scale for likely new diagnosis of T2DM
Assessment / Plan
Assessment / Plan
IMPRESSION:
54 yo M PMH EtOH dependence with cirrhosis s/p TIPS for varices p/w confusion and bilateral soreness of shoulders/upper arms with tachycardia and elevated BP (and electrolyte abnormalities) raising the concern for potential EtOH withdrawal due to
Possible alcohol withdrawal
EtOH relapse
- last drink 3-4 days prior after 60 days of sobriety
- reports possible tremors, but denies ever having had seizures; tachycardia and BP somewhat elevated
- at time of rounding, nursing reports that patient vomited
- admit to telemetry
- continue with msas protocol; MSAS 1 most recently at time of interview
- lorazepam available, last given at 03:26
- continue thiamine and folate
- quitline counselor patient on importance of EtOH cessation
Hypomagnesemia
Hypocalcemia
- Suspect chronic and possibly non compliant with mag ox with ongoing etoh us
- given 1g IV magnesium in ED
- continue Mg supplements 800mg and 400mg daily
- K 3.7; repeat Mg 1.3
- IV Mag 4g and KCl 40 mEq PO
- Calcium gluconate 3g IV ordered as well
Shoulder pain/weakness
- cardiac workup unremarkable (negative troponin, EKG no signs of ischemia)
- most likely attributed electrolyte abnormalities
- replete electrolytes
Cirrhosis s/p TIPS
- ammonia is normal
- LFTs: AlkPhos 448; TBili 3.1; AST 65; ALT 24
- continue lactulose tid
Hyperglycemia, likely T2DM
- A1c 9.8% indicates poorly controlled diabetes
- on insulin aspart sliding scale
- will need to outpatient follow-up
Code status - Full Code
DVTppx - SCDs
Anticipated Discharge: 24 - 48 hours
Subjective/Interval History
-
Date of Service: January 10, 2025
54 yo M PMH EtOH dependence with cirrhosis s/p TIPS 2 months prior p/w new onset confusion in the setting of EtOH use relapse, last drink on Monday (full bottle of Vodka per chart).
Partner is also present in room. They report that he has ongoing chronic upper arm/shoulder pain for months. He denies chest pain, no dyspnea.
Denies hematemeisis, melena, hematochezia
Initial workup per chart showed no acute findings, but there was concern for developing withdrawal so he was to be admitted.
Other PMH: Arrhythmia (Atrial flutter), GERD, HTN, Psychiatric (Anxiety, panic disorder) and Other (Alcohol abuse)
Troponin < 0.012
Ammonia was 24
EKG sinus rhythm
Mg 1.0
LFTs: AlkPhos 448; TBili 3.1; AST 65; ALT 24
CBC Hgb 9.9, stable
Chemistry: K 3.7, Cr 0.8; Glucose 205
CT Head: No acute intracranial abnormality.
Objective Data
-
Labs:
Laboratory Results
01/09/25 01/10/25 01/10/25
18:37 05:51 05:52
WBC 3.3 L
Hgb 8.4 L
Hct 24.3 L
Plt Count 82 L 63 L D
Sodium 138
Potassium 3.7
Chloride 108 H
Carbon Dioxide 25
BUN 8 L
Creatinine 0.8
Glucose 205 H
Calcium 7.3 L
Mg 1.3 from1.0
ammonia 24
- LFTs: AlkPhos 448; TBili 3.1; AST 65; ALT 24
CK 165
Albumin 3.3
Vital Signs:
Vital Signs
Temp Pulse Resp BP Pulse Ox
97.7 F 98 19 140/102 88
01/10/25 04:09 01/10/25 06:15 01/10/25 06:15 01/10/25 06:00 01/10/25 05:00
HR low 100s
Review of Systems
-
History Source: Patient
Constitutional: Reports No Symptoms
EENT: Reports No Symptoms Reported
Respiratory: Reports No Symptoms
Cardiac: Reports No Symptoms
Abdomen/GI: Reports No Symptoms
Musculoskeletal: Reports Other (bilateral arm pain)
Neuro: Reports Tremors and Other (partner reports he is confused)
Physical Exam
-
HEENT: Normocephalic
Musculoskeletal: Other (no tenderness to palpation of arms)
Skin: Other (does not appear jaundiced)
Neuro: AO x 3, No Motor Deficits, Nonfocal/Grossly Intact and Other (no asterixis but he does have a small tremor)
Psych: Confused
--- NOTE | 2025-01-10 08:56 | CM ---
Consult received and chart reviewed
Spoke with patient and his sister Paola at ED bedside
Lives in a [facility] with father and friend
Independent and no DME
CM consult ; discussed substance abuse support
Pt declined stating that he has his own resources for outpatient like AA. Not interested in rehab
PCP Dr Aquino in [place] new one with his [place] insurance
Rx plan yes
Pharmacy [facility]
no hx of SNF nor VN
DCP is to go home
Sister can drive him home
Cm will continue to follow up for any dcp needs
[2025-01-10 09:26] LABS: Glucose - Point of Care 207 mg/dl (70-99)
[2025-01-10] MEDS: NOVOLOG FLEXPEN-LOW RESISTANCE 2 UNITS SC (09:40)
[2025-01-10] MEDS: FOLVITE 1 MG PO (09:45)
[2025-01-10] MEDS: MAGNESIUM OXIDE 800 MG PO ×2 (09:45→21:03)
[2025-01-10] MEDS: THIAMINE INJECTION 200 MG IV ×2 (09:45→21:01)
[2025-01-10] MEDS: DUPHALAC/CHRONULAC 20 GRAMS PO ×2 (09:45→21:03)
[2025-01-10 11:03] LABS: Urine Character Clear (Clear)
[2025-01-10 11:16] LABS: Glycohemoglobin (HgbA1c) 9.8 % (4.0-5.9)
[2025-01-10] MEDS: ZOFRAN 4 MG IV (12:08)
[2025-01-10 12:13] LABS: Glucose - Point of Care 170 mg/dl (70-99)
[2025-01-10] MEDS: NOVOLOG FLEXPEN-LOW RESISTANCE 1 UNITS SC ×2 (12:16→17:20)
[2025-01-10 12:18] LABS: Urine Squamous Cell 0-2 /LPF (Few); Urine White Cell 0-2 /HPF (0-5)
[2025-01-10] MEDS: KCL 40 MEQ PO (17:09)
[2025-01-10 17:20] LABS: Glucose - Point of Care 190 mg/dl (70-99)
--- NOTE | 2025-01-10 17:37 | CM ---
Patient is now INP per physician. Patient seen in ED and declined [facility] follow up at this time. CM will continue to follow for discharge.
Plan; home with no needs; watch for [facility] needs
[2025-01-10] MEDS: CALCIUM GLUCONATE 130 MG IV (18:03)
[2025-01-10 21:06] LABS: Glucose - Point of Care 324 mg/dl (70-99)
[2025-01-10] MEDS: DESYREL 25 MG PO (21:34)
[2025-01-10] MEDS: NOVOLOG FLEXPEN 4 UNITS SC (21:36)
[2025-01-11] MEDS: ATIVAN 1 MG PO (00:38)
[2025-01-11 00:43] LABS: Glucose - Point of Care 215 mg/dl (70-99)
--- NOTE | 2025-01-11 00:44 | PTCARENOTE ---
Patient`s heart rate was sustaining in the 120`s-140`s. MSAS was a 2 previously during the shift. Patient denied hallucinations, sweating, or tremors. TAPE DECK INSTALLER Gabriela made aware. One time dose of PO Ativan ordered, see MAR for administration. Bedtime
blood sugar was 324; 4 units of novolog given. Blood sugar reassessed, sugar was 215.
[2025-01-11] MEDS: LOPRESSOR 2.5 MG IV (02:42)
[2025-01-11] MEDS: MORPHINE SULFATE 2 MG IV ×4 (02:56→22:13)
[2025-01-11 03:00] VITALS: BP 145/108
--- NOTE | 2025-01-11 03:16 | PTCARENOTE ---
Patient`s heart was still sustaining in the 120`s. Gabriela CLERK made aware, one time dose of IV Lopressor given.
[2025-01-11] MEDS: ZOFRAN 4 MG IV (03:49)
--- NOTE | 2025-01-11 05:48 | PTCARENOTE ---
Patient`s heart rate is in the 110`s, patient is asymptomatic. CONCHITA Ochoa made aware, no new orders.
[2025-01-11] MEDS: TYLENOL 650 MG PO (06:26)
[2025-01-11 07:20] VITALS: BP 156/102
--- NOTE | 2025-01-11 07:20 | W.PN.HOSP.TC ---
Addendum entered and electronically signed by Chloe Devlin MD 01/11/25 20:20:
I saw and evaluated the patient independently. I reviewed and discussed the resident�s note and agree with findings and plan as documented by Dr. Espinal.
GENERAL: well developed, well nourished, male in no apparent distress--no jaundice
HEENT: NC/AT
HEART: regular rate and rhythm, +S1, +S2
LUNGS : clear to auscultation bilaterally
ABDOM: soft, nontender, nondistended, + bowel sounds
EXT: no cyanosis, clubbing, or edema
NEUROLOGIC: grossly intact--no tremors, no asterixis
Possible alcohol withdrawal from ETOH relapse--was sober 60 days followed by restarting drinking--cont MSAS protocol--receiving ativan--cont thiamine and folic acid--needs to stay sober
Hypomagnesemia/Hypocalcemia--likely from ETOH--replete as needed--still low this AM
Shoulder pain/weakness --likely from hypokalemia/hypomag--replete--family asking about PMR as has shoulder and hip girdle complaints--ESR elevated--hold on starting steroids now--may need outpt workup by rheum--PT/OT
Cirrhosis s/p TIPS--ammonia is normal--cont lactulose
Hyperglycemia, likely T2DM- A1c 9.8% indicates poorly controlled diabetes- on insulin aspart sliding scale, start low dose glipizide-- will need to outpatient follow-up
Code status - Full Code
DVT proph - SCDs
Original Note:
Today's Communication/Plan
-
- replete Mag
- f/u inflammatory markers
- will require antidiabetic medication upon discharge
Assessment / Plan
Assessment / Plan
IMPRESSION:
54 yo M PMH EtOH dependence with cirrhosis s/p TIPS for varices p/w confusion and bilateral soreness of shoulders/upper arms with tachycardia and elevated BP (and electrolyte abnormalities) raising the concern for potential EtOH withdrawal due to
Possible alcohol withdrawal
EtOH relapse
- last drink 3-4 days prior after 60 days of sobriety
- reports possible tremors, but denies ever having had seizures; tachycardia and BP somewhat elevated
- at time of rounding, nursing reports that patient vomited
- admit to telemetry
- continue with msas protocol; MSAS 1 most recently at time of interview
- lorazepam available, last given at 03:26
- continue thiamine and folate
- residential substance abuse counselor patient on importance of EtOH cessation
Hypomagnesemia
Hypocalcemia
- Suspect chronic and possibly non compliant with mag ox with ongoing etoh us
- continue Mg supplements 800mg and 400mg daily
- K 4.1; Mg 1.5;
- Ca 8.0 but corrects to 9.0 in hypoalbuminemia 2.8; hypocalcemia resolved
- IV Mag 4g
Shoulder pain/weakness
- cardiac workup unremarkable (negative troponin, EKG no signs of ischemia)
- could be attributed to electrolyte derangements
- However, per partner, he also experienced shoulder and hip pain simultaneously and they raised a concern for polymyalgia rheumatica
- per uptodate, bilateral shoulder pain is the most common symptom/complaint in polymyalgia rheumatica
- CPK 165 (not significantly elevated beyond upper limit of normal)
- ESR elevated at 52
- check CRP
- it is unclear whether the shoulder pain is an independent autoimmune process or related to his electrolyte derangements, cirrhosis, etoh relapse
- replete electrolytes
Cirrhosis s/p TIPS
- ammonia is normal
- based on 01/11 labs and extrapolating 10/2024 INR, patient is Child-Guy Class B, suggesting some degree of decompensation
- continue lactulose tid
Hyperglycemia, likely T2DM
- A1c 9.8% indicates poorly controlled diabetes, new onset
- on insulin aspart sliding scale
- antidiabetic choice is limited due to cirrhosis Child-Guy class B, which may point away from using antidiabetic agents metabolized by liver (sulfonylureas).
- metformin may be appropriate if this patient is considered compensated cirrhosis
- other options are SGLT2i and GLP1-agonists
- diabetes education consult ordered
Code status - Full Code
DVTppx - SCDs
Anticipated Discharge: 24 - 48 hours
Subjective/Interval History
-
Date of Service: January 11, 2025
MSAS 2-3, highest 5
ativan at midngiht
feels arms soreness still
Objective Data
-
Labs:
Laboratory Results
01/11/25
07:14
WBC Pending
Hgb Pending
Hct Pending
Plt Count Pending
Sodium Pending
Potassium Pending
Chloride Pending
Carbon Dioxide Pending
BUN Pending
Creatinine Pending
Glucose Pending
Calcium Pending
Total Bilirubin Pending
AST Pending
ALT Pending
Alkaline Phosphatase Pending
Mg 1.5
Calcium 8.0 --> corrects to 9.0 with hypoalbuminemia
Vital Signs:
Vital Signs
Temp Pulse Resp BP Pulse Ox
97.9 F 127 16 145/108 97
01/11/25 03:00 01/11/25 03:00 01/11/25 03:00 01/11/25 03:00 01/11/25 03:00
tachcyardiac but now 90s
BP 150s/100s
I&O
01/10/25 01/11/25 01/12/25
06:59 06:59 06:59
Intake Total 720 / 720
Output Total 850 / 850
Balance -130 / -130
Review of Systems
-
History Source: Patient
Constitutional: Reports No Symptoms
EENT: Reports No Symptoms Reported
Respiratory: Reports No Symptoms
Cardiac: Reports No Symptoms
Abdomen/GI: Reports No Symptoms
Musculoskeletal: Reports Other (bilateral arm soreness)
Neuro: Reports No Symptoms
Physical Exam
-
HEENT: Normocephalic and Other (no jaw claudication, no visual impairment in acute setting)
Respiratory: Clear to Auscultation
Cardiac: Other (no murmurs on my exam)
GI: Soft, Nontender and Normal Bowel Sounds
Musculoskeletal: Other (no tenderness to palpation of arms)
Skin: Other (does not appear jaundiced)
Neuro: No Motor Deficits, Nonfocal/Grossly Intact and Other (no asterixis)
Psych: Calm
[2025-01-11] MEDS: NEURONTIN 300 MG PO ×3 (08:08→21:49)
[2025-01-11] MEDS: FOLVITE 1 MG PO (08:08)
[2025-01-11] MEDS: MAGNESIUM OXIDE 800 MG PO ×2 (08:08→21:49)
[2025-01-11] MEDS: THIAMINE INJECTION 200 MG IV ×2 (08:08→21:48)
[2025-01-11] MEDS: DUPHALAC/CHRONULAC 20 GRAMS PO ×2 (08:08→21:50)
[2025-01-11] MEDS: NOVOLOG FLEXPEN-LOW RESISTANCE 1 UNITS SC (08:11)
[2025-01-11 08:12] LABS: Glucose - Point of Care 163 mg/dl (70-99)
[2025-01-11 08:20] LABS: Hematocrit 28.2 % (39.0-52.0); Hemoglobin 9.7 g/dL (13.0-18.0); Mean Corp Hgb Conc. 34.4 g/dL (33.0-37.0); Mean Corpuscular Volume 81.0 fL (80.0-94.0); Platelet Count 66 10^3/uL (130-400); Red Cell Dist. Width 14.3 % (11.5-14.5)
[2025-01-11 08:47] LABS: ALT (SGPT) 22 U/L (0-50); AST (SGOT) 54 U/L (17-59); Albumin 2.8 g/dl (3.5-5.0); Alkaline Phosphatase 386 U/L (38-126); Blood Urea Nitrogen 7 mg/dl (9-20); Calcium 8.0 mg/dl (8.4-10.2); Carbon Dioxide 26 mmol/L (22-30); Chloride 102 mmol/L (98-107); Estimated Creatinine Clearance 96 ml/min; Glucose 170 mg/dl (70-99); Magnesium 1.5 mg/dl (1.6-2.3); Potassium 4.1 mmol/L (3.5-5.1); Sodium 131 mmol/L (135-145); Total Protein 6.3 g/dl (6.3-8.2); eGFR > 60.00
[2025-01-11 11:46] VITALS: BP 154/106
[2025-01-11] MEDS: MAGNESIUM SULFATE 100 IV (12:08)
[2025-01-11 12:18] LABS: Glucose - Point of Care 284 mg/dl (70-99)
[2025-01-11] MEDS: NOVOLOG FLEXPEN-LOW RESISTANCE 3 UNITS SC ×2 (12:23→17:54)
[2025-01-11 15:26] VITALS: BP 130/83
[2025-01-11 17:03] LABS: Glucose - Point of Care 284 mg/dl (70-99)
[2025-01-11 19:00] VITALS: BP 141/95
[2025-01-11 21:31] LABS: Glucose - Point of Care 291 mg/dl (70-99)
[2025-01-11] MEDS: DESYREL 25 MG PO (21:49)
[2025-01-11 23:00] VITALS: BP 124/82
[2025-01-12] MEDS: MORPHINE SULFATE 2 MG IV ×4 (02:17→22:26)
[2025-01-12 03:00] VITALS: BP 137/84
[2025-01-12] MEDS: TYLENOL 650 MG PO ×2 (06:47→22:34)
[2025-01-12 07:15] VITALS: BP 129/74
[2025-01-12 07:36] LABS: Glucose - Point of Care 209 mg/dl (70-99)
[2025-01-12] MEDS: NOVOLOG FLEXPEN-LOW RESISTANCE 2 UNITS SC (08:11)
[2025-01-12] MEDS: THIAMINE INJECTION 200 MG IV ×2 (08:12→22:04)
[2025-01-12] MEDS: DUPHALAC/CHRONULAC 20 GRAMS PO ×2 (08:12→22:03)
[2025-01-12] MEDS: FOLVITE 1 MG PO (08:12)
[2025-01-12] MEDS: NEURONTIN 300 MG PO ×3 (08:12→22:07)
[2025-01-12] MEDS: MAGNESIUM OXIDE 800 MG PO ×2 (08:12→22:03)
--- NOTE | 2025-01-12 08:22 | W.PN.HOSP.TC ---
Addendum entered and electronically signed by Chloe Devlin MD 01/12/25 15:23:
I saw and evaluated the patient independently. I reviewed and discussed the resident�s note and agree with findings and plan as documented by Dr. Espinal.
GENERAL: well developed, well nourished, male in no apparent distress--no jaundice
HEENT: NC/AT
HEART: regular rate and rhythm, +S1, +S2
LUNGS : clear to auscultation bilaterally
ABDOM: soft, nontender, nondistended, + bowel sounds
EXT: no cyanosis, clubbing, or edema
NEUROLOGIC: grossly intact--no tremors, no asterixis
Possible alcohol withdrawal from ETOH relapse (resolved)--was sober 60 days followed by restarting drinking--cont MSAS protocol--receiving ativan--cont thiamine and folic acid--needs to stay sober
Hypomagnesemia/Hypocalcemia--likely from ETOH--replete as needed--still low this AM
Shoulder pain/weakness --likely from hypokalemia/hypomag--replete--family asking about PMR as has shoulder and hip girdle complaints--ESR elevated--hold on starting steroids now--may need outpt workup by rheum--PT/OT
Cirrhosis s/p TIPS--ammonia is normal--cont lactulose
Hyperglycemia, likely T2DM- A1c 9.8% indicates poorly controlled diabetes (new diagnosis)- on insulin aspart sliding scale-- await DM RAIL SPLITTER eval--limited meds can be used with cirrhosis
Code status - Full Code
DVT proph - SCDs
Original Note:
Today's Communication/Plan
-
- replete electrolytes
- diabetes TRUCK SALES MANAGER consult
- touch base with rheumatology on 01/13
Assessment / Plan
Assessment / Plan
IMPRESSION:
54 yo M PMH EtOH dependence with cirrhosis s/p TIPS for varices p/w confusion and bilateral soreness of shoulders/upper arms with tachycardia and elevated BP (and electrolyte abnormalities) raising the concern for potential EtOH withdrawal due to
Possible alcohol withdrawal
EtOH relapse
- last drink 3-4 days prior after 60 days of sobriety
- VS stable
- continue with msas protocol
- lorazepam available
- continue thiamine and folate
- primary substance abuse counselor patient on importance of EtOH cessation
Hypomagnesemia
Hypocalcemia
- Suspect chronic and possibly non compliant with mag ox with ongoing etoh us
- continue Mg supplements 800mg and 400mg daily
- K 3.5; Mg 1.7
- Ca 8.0 but corrects to 9.0 in hypoalbuminemia 2.7; hypocalcemia resolved
- IV Mag 4g
- KCl PO 40 mEq
Shoulder pain/weakness
- cardiac workup unremarkable (negative troponin, EKG no signs of ischemia)
- could be attributed to electrolyte derangements
- However, per partner, he also experienced shoulder and hip pain simultaneously and they raised a concern for polymyalgia rheumatica
- per uptodate, bilateral shoulder pain is the most common symptom/complaint in polymyalgia rheumatica
- CPK 165 (not significantly elevated beyond upper limit of normal)
- ESR elevated at 52
- CRP normal at 7.20
- it is unclear whether the shoulder pain is an independent autoimmune process or related to his electrolyte derangements, cirrhosis, etoh relapse, T2DM
- replete electrolytes
- morphine 2mg q4h prn
- will touch base with rheumatology on 01/13/2025 regarding management of shoulder pain
Cirrhosis s/p TIPS
- ammonia is normal
- based on 01/11 labs and extrapolating 10/2024 INR, patient is Child-Guy Class B, suggesting some degree of decompensation
- continue lactulose tid
Hyperglycemia, likely T2DM
- A1c 9.8% indicates poorly controlled diabetes, new onset
- on insulin aspart sliding scale
- antidiabetic choice is limited due to cirrhosis
- diabetes education and diabetic management consult ordered
Code status - Full Code
DVTppx - SCDs
Anticipated Discharge: 24 - 48 hours
Subjective/Interval History
-
Date of Service: January 12, 2025
reportedly some nausea/vomiting
Objective Data
-
Labs:
Laboratory Results
01/12/25
07:50
WBC Pending
Hgb Pending
Hct Pending
Plt Count Pending
PT Pending
INR Pending
Sodium Pending
Potassium Pending
Chloride Pending
Carbon Dioxide Pending
BUN Pending
Creatinine Pending
Glucose Pending
Calcium Pending
Total Bilirubin Pending
AST Pending
ALT Pending
Alkaline Phosphatase Pending
glucose 280s
Vital Signs:
Vital Signs
Temp Pulse Resp BP Pulse Ox
98.5 F 91 16 137/84 94
01/12/25 03:00 01/12/25 03:00 01/12/25 03:00 01/12/25 03:00 01/12/25 03:00
I&O
01/11/25 01/12/25 01/13/25
06:59 06:59 06:59
Intake Total 720 / 720 750 / 750
Output Total 850 / 850 375 / 375
Balance -130 / -130 375 / 375
Review of Systems
-
History Source: Patient
Constitutional: Reports No Symptoms
EENT: Reports No Symptoms Reported
Respiratory: Reports No Symptoms
Cardiac: Reports No Symptoms
Abdomen/GI: Reports No Symptoms
Musculoskeletal: Reports Other (bilateral arm soreness)
Neuro: Reports No Symptoms
Physical Exam
-
HEENT: Normocephalic and Other (no jaw claudication, no visual impairment in acute setting)
Respiratory: Clear to Auscultation
Cardiac: Other (no murmurs on my exam)
GI: Soft, Nontender and Normal Bowel Sounds
Musculoskeletal: Other (no tenderness to palpation of arms)
Skin: Other (does not appear jaundiced)
Neuro: No Motor Deficits, Nonfocal/Grossly Intact and Other (no asterixis)
Psych: Calm
[2025-01-12 08:45] LABS: Hematocrit 26.2 % (39.0-52.0); Hemoglobin 8.9 g/dL (13.0-18.0); Mean Corp Hgb Conc. 34.0 g/dL (33.0-37.0); Mean Corpuscular Volume 81.6 fL (80.0-94.0); Platelet Count 62 10^3/uL (130-400); Red Cell Dist. Width 14.4 % (11.5-14.5)
[2025-01-12 09:04] LABS: INR 1.84; PT 21.4 Sec (11.4-14.6)
[2025-01-12 09:15] LABS: ALT (SGPT) 21 U/L (0-50); AST (SGOT) 48 U/L (17-59); Albumin 2.7 g/dl (3.5-5.0); Alkaline Phosphatase 371 U/L (38-126); Blood Urea Nitrogen 9 mg/dl (9-20); Calcium 8.0 mg/dl (8.4-10.2); Carbon Dioxide 26 mmol/L (22-30); Chloride 102 mmol/L (98-107); Estimated Creatinine Clearance 96 ml/min; Glucose 206 mg/dl (70-99); Magnesium 1.7 mg/dl (1.6-2.3); Potassium 3.5 mmol/L (3.5-5.1); Sodium 131 mmol/L (135-145); Total Protein 6.3 g/dl (6.3-8.2); eGFR > 60.00
[2025-01-12 09:16] LABS: C-Reactive Protein 7.20 mg/L (0.0-10.00)
[2025-01-12] MEDS: MAGNESIUM SULFATE 100 IV (09:51)
[2025-01-12] MEDS: ZOFRAN 4 MG IV (10:56)
[2025-01-12 11:15] VITALS: BP 133/80
--- NOTE | 2025-01-12 11:28 | CM ---
Patient seen at bedside and patient indicated that he was not feeling well and asked for DM educator. Patient declined [facility] supports at this time. CM will continue to follow for discharge planning needs.
Plan; home with no needs; watch for VN needs
[2025-01-12] MEDS: NOVOLOG FLEXPEN-LOW RESISTANCE 1 UNITS SC ×2 (11:54→16:31)
[2025-01-12 11:55] LABS: Glucose - Point of Care 190 mg/dl (70-99)
[2025-01-12 15:10] VITALS: BP 128/86
[2025-01-12] MEDS: KCL 40 MEQ PO (15:44)
[2025-01-12 16:30] LABS: Glucose - Point of Care 189 mg/dl (70-99)
[2025-01-12 19:53] VITALS: BP 136/73
[2025-01-12 21:07] LABS: Glucose - Point of Care 158 mg/dl (70-99)
[2025-01-12] MEDS: FLUSH (NSS) 2 FLUSH IV ×2 (22:05→22:27)
[2025-01-12] MEDS: DESYREL 25 MG PO (22:08)
[2025-01-12 23:24] VITALS: BP 117/72
[2025-01-13 03:31] VITALS: BP 143/100
[2025-01-13 06:05] VITALS: BMI 24.2
[2025-01-13 07:06] LABS: Glucose - Point of Care 128 mg/dl (70-99)
[2025-01-13 07:30] VITALS: BP 138/88
--- NOTE | 2025-01-13 07:42 | W.PN.HOSP.TC ---
Today's Communication/Plan
-
- start steroids
- give PPI
- f/u diabetic SANDING SUPERVISOR recommendations
- replete Mg IV
- lactulose 30mg tid
Assessment / Plan
Assessment / Plan
IMPRESSION:
54 yo M PMH EtOH dependence with cirrhosis s/p TIPS for varices p/w confusion and bilateral soreness of shoulders/upper arms with tachycardia and elevated BP (and electrolyte abnormalities) raising the concern for potential EtOH withdrawal due to
recent EtOH relapse.
Possible alcohol withdrawal
EtOH relapse
- VS stable
- continue with msas protocol
- lorazepam available
- continue thiamine and folate
- grief counsellor patient on importance of EtOH cessation
- up to lactulose 30mg tid (home dose)
Hypomagnesemia
Hypocalcemia
- Suspect chronic and possibly non compliant with mag ox with ongoing etoh us
- continue Mg supplements 800mg and 400mg daily
- K 3.9; Mg 1.8
- Replete Mg 2g IV
Shoulder pain/weakness
- cardiac workup unremarkable (negative troponin, EKG no signs of ischemia)
- could be attributed to electrolyte derangements
- However, per partner, he also experienced shoulder and hip pain simultaneously and they raised a concern for polymyalgia rheumatica
- CPK 165; ESR 52; CRP 7.2
- per rheumatology: they recommend prednisone starting at 10mg /day x2 weeks followed by a tapering wean by 1mg every week until completely off steroids and outpatient follow-up in 8-10 weeks
- after discussion among primary team, we will do prednisone 10mg/day, and taper by 2.5mg every 2 weeks without outpatient rheum appt in 6-8 weeks
- will start pantoprazole with steroids
- switch morphine to tylenol to prevent constipation
Cirrhosis s/p TIPS
- rechecking ammonia
- ammonia this morning 86, but no signs of encephalopathy
- up to lactulose 30mg tid (home dose)
T2DM, new diagnosis
- A1c 9.8% indicates poorly controlled diabetes, new diagnosis thisa dmission
- on insulin aspart sliding scale
- diabetes education and diabetic management consult ordered
- will need to be managed with the prednisone
Code status - Full Code
DVTppx - SCDs
Anticipated Discharge: 24 - 48 hours
Subjective/Interval History
-
Date of Service: January 13, 2025
reports that he hasn't been eating as much, vomitied yesterday
feel fatigue
Objective Data
-
Labs:
Laboratory Results
01/13/25
06:00
WBC Pending
Hgb Pending
Hct Pending
Plt Count Pending
Sodium Pending
Potassium Pending
Chloride Pending
Carbon Dioxide Pending
BUN Pending
Creatinine Pending
Glucose Pending
Calcium Pending
ammonia 86
Vital Signs:
Vital Signs
Temp Pulse Resp BP Pulse Ox
98.0 F 110 18 143/100 96
01/13/25 03:31 01/13/25 03:31 01/13/25 03:31 01/13/25 03:31 01/13/25 03:31
I&O
01/12/25 01/13/25 01/14/25
06:59 06:59 06:59
Intake Total 750 / 750 880 / 880
Output Total 375 / 375 225 / 225
Balance 375 / 375 655 / 655
Review of Systems
-
History Source: Patient
Constitutional: Reports No Symptoms
EENT: Reports No Symptoms Reported
Respiratory: Reports No Symptoms
Cardiac: Reports No Symptoms
Abdomen/GI: Reports No Symptoms
Musculoskeletal: Reports Other (bilateral arm soreness)
Neuro: Reports No Symptoms
Physical Exam
-
HEENT: Normocephalic and Other (no jaw claudication, no visual impairment in acute setting)
Respiratory: Clear to Auscultation
Cardiac: Other (no murmurs on my exam)
GI: Soft, Nontender and Normal Bowel Sounds
Musculoskeletal: Other (no tenderness to palpation of arms)
Skin: Other (does not appear jaundiced)
Neuro: AO x 3, No Motor Deficits, Nonfocal/Grossly Intact and Other (no asterixis)
Psych: Calm
[2025-01-13] MEDS: NOVOLOG FLEXPEN-LOW RESISTANCE SC ×2 (08:21→12:36)
[2025-01-13] MEDS: NEURONTIN 300 MG PO ×2 (08:22→15:59)
[2025-01-13] MEDS: VITAMIN B1 100 MG PO (08:22)
[2025-01-13] MEDS: MAGNESIUM OXIDE 800 MG PO (08:22)
[2025-01-13] MEDS: FOLVITE 1 MG PO (08:22)
[2025-01-13] MEDS: DUPHALAC/CHRONULAC 20 GRAMS PO (08:22)
--- NOTE | 2025-01-13 08:37 | PN.DE.MGMTRT ---
Insulin Management
- -
01/13/2025: Diabetes Management Consult
54 year old male with PMH: A-Fib, HTN, Alcohol dependence with cirrhosis s/p TIPS for varices p/w confusion and bilateral soreness of shoulders/upper arms with tachycardia and elevated BP (and electrolyte abnormalities) raising the concern for
potential EtOH withdrawal due to recent EtOH relapse.
He was noted for elevated blood sugar on admission, A1C 9.8%, eGFR>60
Patient awake, alert, oriented, resting in bed, states he feels very weak and tired. States he did not know he had diabetes, despite recently being in the hospital
GF at bedside, states pt has no appetite and has not had much to eat since yesterday. He has pancakes and eggs with juice on his tray, pt states he is going to sit up and eat, tho he is not sure he will be able to eat it all.
01/12 glucose range was 189 to 209, fasting 128 today. His diabetes regimen includes low corrective insulin with meals only.
Pt to be started on low dose prednisone today with slow taper.
Will start Lantus 12 units in am, 1st dose now. Start low dose ac NovoLog 3 units. cont low corrective with meals.
Pt will be seen by the Diabetes Nurse Educator for monitor and insulin instructions.
Discussed with Nurse. Will cont to follow
Diabetes History
- -
Type of Diabetes: 2 requiring insulin
Pre-Admission Diabetes Regimen
01/12/25
07:50
Creatinine 0.9
Lab Results
Hemoglobin A1c 9.8 % (4.0-5.9) H 01/10/25 05:52
Insulin Pump Settings
IP Diabetes Regimen
01/12/25 01/12/25 01/12/25
07:50 11:53 16:28
Glucose 206 H
POC Glucose 190 H 189 H
01/12/25 01/13/25
21:06 07:05
Glucose
POC Glucose 158 H 128 H
Meal type: Breakfast
Amount consumed: 60%
Patient Education
[2025-01-13 09:13] LABS: Hematocrit 27.5 % (39.0-52.0); Hemoglobin 9.4 g/dL (13.0-18.0); Mean Corp Hgb Conc. 34.2 g/dL (33.0-37.0); Mean Corpuscular Volume 82.6 fL (80.0-94.0); Platelet Count 60 10^3/uL (130-400); Red Cell Dist. Width 14.9 % (11.5-14.5)
[2025-01-13 09:30] LABS: Blood Urea Nitrogen 11 mg/dl (9-20); Calcium 8.4 mg/dl (8.4-10.2); Carbon Dioxide 24 mmol/L (22-30); Chloride 104 mmol/L (98-107); Estimated Creatinine Clearance 96 ml/min; Glucose 123 mg/dl (70-99); Magnesium 1.8 mg/dl (1.6-2.3); Potassium 3.9 mmol/L (3.5-5.1); Sodium 132 mmol/L (135-145); eGFR > 60.00
[2025-01-13] MEDS: LANTUS 0.12 UNITS SC (09:33)
[2025-01-13 10:20] LABS: Ammonia 86 umol/L (9-30)
[2025-01-13] MEDS: DELTASONE 10 MG PO (11:27)
[2025-01-13] MEDS: DUPHALAC/CHRONULAC 30 GRAMS PO (11:27)
[2025-01-13 11:31] VITALS: BP 153/89
[2025-01-13 12:26] LABS: Glucose - Point of Care 140 mg/dl (70-99)
--- NOTE | 2025-01-13 12:36 | PTCARENOTE ---
01/13/2025 DIABETES EDUCATION CONSULT
I met with patient to review diabetes management. He is inpatient with aFib, alcohol withdrawal s/p TIPS procedure; his HbA1c is 9.8%. His girlfriend was present during the education, is a nurse and has been checking his BS at home the past few
weeks and states it has been 200-500 mg/dL.
I educated on physiology of T2D, organ damage, managing with medications, monitoring BG, nutrition, activity, sleep and managing stress. I reinforced signs of hyperglycemia, hypoglycemia and hypoglycemia protocol; BS parameters and recommended HbA1c
goals, glucometer and CGM instructions, glucose tracker, medic alert bracelet and outpatient DSME program. Written material provided.
I provided patient with a [employer] Next Gen glucometer sample kit, he declined demonstration as girlfriend is a nurse and has been helping him with self monitoring.
I educated and demonstrated on insulin injection technique, timing, and storage. Discussed long and short acting insulin; onset/peak/duration, and encouraged her to administer self injections with RN supervision while admitted. Discussed normal
target glucose ranges and a monitoring schedule 15 minutes before each meal when prescribed Novolog, and before bedtime. Insulin pen needles given to nurse.
I also stated to patient that due to lack of insurance, insurance brand will be determined by diabetes [employer]. He does not have insurance, discussed the [facility] clinic which he is familiar. Expressed the importance of medical follow up after
d/c. He verbalized understanding. He does not have insurance, discussed the [facility] clinic which he is familiar. Expressed the importance of medical follow up after d/c. He verbalized understanding.
[2025-01-13] MEDS: NOVOLOG FLEXPEN 3 UNITS SC (12:44)
[2025-01-13] MEDS: MAGNESIUM SULFATE 50 IV (13:09)
[2025-01-13] MEDS: PROTONIX 20 MG PO (13:10)
[2025-01-13] MEDS: TYLENOL 1000 MG PO (13:18)
[2025-01-13 15:22] VITALS: BP 126/98
[2025-01-13] MEDS: DUPHALAC/CHRONULAC PO ×2 (15:59→16:29)
[2025-01-13 16:50] LABS: Glucose - Point of Care 232 mg/dl (70-99)
[2025-01-13] MEDS: NOVOLOG FLEXPEN-LOW RESISTANCE 2 UNITS SC (17:19)
--- NOTE | 2025-01-13 17:23 | W.DCSUMMARY ---
Documented by User: Jerad Espinal MD, Resident 01/13/25 17:38
Discharge Summary
Discharge Data
Date of Admission: 01/10/25
Date of Discharge: 01/13/25
-
Pending Results: No
Hospital Course
Discharging Physician : Dr. Al Izaguirre; Dr. Jerad Espinal
Disposition : Home
Primary care physician : Emilia Little
Principal Discharge diagnosis : Possible EtOH withdrawal, EtOH relapse, new diagnosis T2DM, hypomagnesemia, hypocalcemia, shoulder pain/weakness
Chronic Discharge diagnosis : cirrhosis s/p TIPS
Hospital Course :
54 yo M PMH EtOH dependence with cirrhosis s/p TIPS 2 months prior p/w new onset confusion in the setting of EtOH use relapse, last drink on Monday (full bottle of Vodka per chart). Partner is also present in room providing additional history. They
report that he has ongoing chronic upper arm/shoulder pain and hip pain for months. He denies chest pain, no dyspnea. Denies hematemesis, melena, hematochezia. Initial workup showed no acute findings, but there was concern for developing withdrawal
so he was to be admitted.
While admitted, he continued to endorse bilateral shoulder pain and fatigue. ESR was found to be elevated but CRP normal limits. Rheumatology was informally consulted, and they recommended a low-dose steroid taper over 8 weeks for possible
polymyalgia rheumatica. There is no concern for giant cell arteritis at this time - he denies jaw claudication, visual impairment.
Then, his A1c was found to be 9.8%, indicating a new diagnosis of T2DM for him. Diabetic [employer] SWITCH ADJUSTER were involved to help. Given his cirrhosis and poorly controlled diabetes, insulin is considered drug of choice.
On day of discharge, the ammonia level was initially found to be high at 86, and the lactulose was increased to his home dose. The patient then experienced 2x bowel movements. He then requested to be discharged. Given that the patient is overall
medically stable, the decision was made to discharge him.
The following problems were addressed during this admission:
Possible alcohol withdrawal
EtOH relapse
- He underwent a TIPS procedure in/around November and then remained sober for 60 days before experiencing a relapse last week.
- MSAS protocol was implemented with lorazepam prn available
- the patient subjectively felt better, particularly after a bowel movement.
- continue thiamine and folate
- direct selling counselor patient on importance of EtOH cessation
- up to lactulose 30mg tid (his home dose)
T2DM, new diagnosis
- A1c 9.8% indicates poorly controlled diabetes, new diagnosis this admission
- started on lantus and insulin aspart per diabetic [employer] SWITCH ADJUSTER
Hypomagnesemia
Hypocalcemia
- Suspect chronic and possibly not taking magnesium oxide supplements.
- continue Mg supplements
- electrolytes were repleted as needed
- On day of discharge, Mg 1.8, K 3.9, Ca 9.0
Shoulder pain/weakness
- cardiac workup unremarkable (negative troponin, EKG no signs of ischemia)
- could be attributed to electrolyte derangements
- However, per partner, he also experienced shoulder and hip pain simultaneously and they raised a concern for polymyalgia rheumatica
- CPK 165; ESR 52; CRP 7.2
- per rheumatology: they recommend prednisone taper
- after discussion among primary team, we will do prednisone 10mg/day, and taper by 2.5mg every 2 weeks without outpatient rheum appt in 6-8 weeks
- will also provide pantoprazole with steroids
- switched morphine to Tylenol to prevent constipation
- patient was provided a script for oxycodone at discharge
Cirrhosis s/p TIPS
- ammonia was initially 24 but then was found to be 86, but no signs of encephalopathy
- increased lactulose 30mg tid (which is his home dose)
- patient then experienced 2x bowel movements and then requested to be discharged
Important imaging findings :
Head CT noncontrast 01/09/2025
FINDINGS:
Unenhanced CT imaging of the head reveals no findings to suggest recent infarction, intracranial hemorrhage, extra-axial fluid collection, mass effect or midline shift. The ventricles, cisterns and sulci are within the limits of normal. The
brainstem and posterior fossa structures demonstrate no significant focal abnormality.
IMPRESSION:
No acute intracranial abnormality.
Procedure findings :
EKG 01/09/2025
Vent. Rate : 98 BPM Atrial Rate : 98 BPM
P-R Int : 140 ms QRS Dur : 82 ms
QT Int : 378 ms P-R-T Axes : 29 47 40 degrees
QTcB Int : 482 ms
NORMAL SINUS RHYTHM
QTcB >= 480 msec
Discharge Plan
-
Patient Disposition: Home (Routine Discharge)
Discharge Diagnosis/Procedures: Possible EtOH withdrawal, EtOH relapse, new diagnosis T2DM, hypomagnesemia, hypocalcemia, shoulder pain/weakness, cirrhosis s/p TIPS
Condition: Fair
Diet: Diabetic, Carb Controlled
Activity: With assistance
Referrals:
Emilia Little PA-C [Family Provider, Internal Medicine]
Vinod Elaine MD [Consulting Staff, Rheumatology] - in six weeks
Additional Discharge Medication Instructions: Please start a steroid taper 4 tablets per day = 10mg for 2 weeks (01/13-01/26), 3 tablets per day = 7.5mg for 2 weeks (01/27-02/09); 2 tablets per day = 5mg for 2 weeks (02/10-02/23), then 1 tablet per
day = 2.5mg for 2 weeks (02/24-03/09).
You need to follow-up with rheumatology in 6-8 weeks (the office number is above).
Please follow-up with your family doctor within 1 week.
You also need to take insulin lantus every morning and insulin aspart 3 units before meals. Instructions below.
You should take your magnesium supplements and may continue the other medications as below.
You can continue your other medications as below.
Prescriptions:
New
lactulose 10 gram/15 mL Solution
30 g PO TID 30 Days Qty: 4050 0RF
folic acid 1 mg Tablet
1 mg PO DAILY 30 Days Qty: 30 0RF
insulin glargine [Basaglar KwikPen U-100 Insulin] 100 unit/mL (3 mL) insulin pen
10 unit SC QPM 30 Days Qty: 3 0RF
insulin aspart U-100 100 unit/mL (3 mL) Insulin Pen
3 unit SC AC 30 Days Qty: 2.7 0RF
acetaminophen [Tylenol Extra Strength] 500 mg Tablet
1,000 mg PO Q6HPRN PRN (Reason: mild to moderate) 14 Days Qty: 30 0RF
thiamine mononitrate (vit B1) 100 mg Tablet
100 mg PO BID 30 Days Qty: 60 0RF
oxycodone 5 mg tablet
5 mg PO Q6H PRN (Reason: Pain) 5 Days Qty: 20 0RF
(DME) blood-glucose meter Kit
See Rx Instructions .Route Qty: 1 0RF
Rx Instructions:
As directed, ICD - E.11
(DME) lancets 17 gauge misc
See Rx Instructions .Route Qty: 100 0RF
Rx Instructions:
As directed, ICD - E.11
(DME) insulin syringe-needle U-100 [[employer] Syringes] 0.3 mL 30 gauge x 5/16' syringe
See Rx Instructions .Route Qty: 100 0RF
Rx Instructions:
As directed, ICD E.11
(DME) pen needle, diabetic [[employer] Pen Needle] 31 gauge x 3/16' needle
See Rx Instructions .Route Qty: 100 0RF
Rx Instructions:
As directed, ICD E.11
prednisone 2.5 mg tablet
2.5 mg PO DAILY Qty: 14 0RF
Rx Instructions:
take 1 tablet a day for 2 weeks (2.5mg/day)
prednisone 2.5 mg tablet
2.5 mg PO DAILY Qty: 28 0RF
Rx Instructions:
take 2 tablets per day for two weeks (5mg/day dose)
prednisone 2.5 mg tablet
2.5 mg PO DAILY Qty: 42 0RF
Rx Instructions:
take 3 tablets per day for total of 7.5mg/day for 2 weeks
prednisone 2.5 mg tablet
2.5 mg PO DAILY Qty: 56 0RF
Rx Instructions:
Take 4 tablets per day for total dose of 10mg/day for 2 weeks
pantoprazole 20 mg tablet,delayed release (DR/EC)
20 mg PO DAILY Qty: 90 0RF
Rx Instructions:
Take 1 tablet daily by mouth for any heartburn related to steroid use
Continued
trazodone 50 mg Tablet
25 mg PO HS
gabapentin 300 mg Capsule
300 mg PO TID
lactulose 10 gram/15 mL Solution
30 g PO TID
magnesium oxide 400 mg magnesium Tablet
400 mg PO DAILY
magnesium oxide 400 mg magnesium Tablet
800 mg PO HS
lorazepam 0.5 mg Tablet
0.5 mg PO HSPRN PRN (Reason: anxiety)
folic acid 1 mg Tablet
1 mg PO DAILY
diphenhydramine-acetaminophen [Acetaminophen PM] 25-500 mg Tablet
2 tab PO HSPRN PRN (Reason: sleep)
Discontinued
thiamine HCl (vitamin B1) 100 mg Tablet
100 mg PO DAILY
Discharge Orders:
Discharge Patient (As Directed); Ordered 01/13/25
Ordered By: Jerad Espinal
Discharge Date and Time
Print Language: [place]

Documented by User: Al Izaguirre DO 01/13/25 18:15
Discharge Summary
Discharge Data
Date of Admission: 01/10/25
Date of Discharge: 01/13/25
Total time spent discharging patient (in min): 37
Discharge Plan
-
Patient Disposition: Home (Routine Discharge)
Discharge Diagnosis/Procedures: Possible EtOH withdrawal, EtOH relapse, new diagnosis T2DM, hypomagnesemia, hypocalcemia, shoulder pain/weakness, cirrhosis s/p TIPS
Condition: Fair
Diet: Diabetic, Carb Controlled
Activity: With assistance
Referrals:
Emilia Little PA-C [Family Provider, Internal Medicine]
Vinod Elaine MD [Consulting Staff, Rheumatology] - in six weeks
Additional Discharge Medication Instructions: Please start a steroid taper 4 tablets per day = 10mg for 2 weeks (01/13-01/26), 3 tablets per day = 7.5mg for 2 weeks (01/27-02/09); 2 tablets per day = 5mg for 2 weeks (02/10-02/23), then 1 tablet per
day = 2.5mg for 2 weeks (02/24-03/09).
You need to follow-up with rheumatology in 6-8 weeks (the office number is above).
Please follow-up with your family doctor within 1 week.
You also need to take insulin lantus every morning and insulin aspart 3 units before meals. Instructions below.
You should take your magnesium supplements and may continue the other medications as below.
You can continue your other medications as below.
Prescriptions:
New
lactulose 10 gram/15 mL Solution
30 g PO TID 30 Days Qty: 4050 0RF
folic acid 1 mg Tablet
1 mg PO DAILY 30 Days Qty: 30 0RF
insulin glargine [Basaglar KwikPen U-100 Insulin] 100 unit/mL (3 mL) insulin pen
10 unit SC QPM 30 Days Qty: 3 0RF
insulin aspart U-100 100 unit/mL (3 mL) Insulin Pen
3 unit SC AC 30 Days Qty: 2.7 0RF
acetaminophen [Tylenol Extra Strength] 500 mg Tablet
1,000 mg PO Q6HPRN PRN (Reason: mild to moderate) 14 Days Qty: 30 0RF
thiamine mononitrate (vit B1) 100 mg Tablet
100 mg PO BID 30 Days Qty: 60 0RF
oxycodone 5 mg tablet
5 mg PO Q6H PRN (Reason: Pain) 5 Days Qty: 20 0RF
(DME) blood-glucose meter Kit
See Rx Instructions .Route Qty: 1 0RF
Rx Instructions:
As directed, ICD - E.11
(DME) lancets 17 gauge misc
See Rx Instructions .Route Qty: 100 0RF
Rx Instructions:
As directed, ICD - E.11
(DME) insulin syringe-needle U-100 [[employer] Syringes] 0.3 mL 30 gauge x 5/16' syringe
See Rx Instructions .Route Qty: 100 0RF
Rx Instructions:
As directed, ICD E.11
(DME) pen needle, diabetic [[employer] Pen Needle] 31 gauge x 3/16' needle
See Rx Instructions .Route Qty: 100 0RF
Rx Instructions:
As directed, ICD E.11
prednisone 2.5 mg tablet
2.5 mg PO DAILY Qty: 14 0RF
Rx Instructions:
take 1 tablet a day for 2 weeks (2.5mg/day)
prednisone 2.5 mg tablet
2.5 mg PO DAILY Qty: 28 0RF
Rx Instructions:
take 2 tablets per day for two weeks (5mg/day dose)
prednisone 2.5 mg tablet
2.5 mg PO DAILY Qty: 42 0RF
Rx Instructions:
take 3 tablets per day for total of 7.5mg/day for 2 weeks
prednisone 2.5 mg tablet
2.5 mg PO DAILY Qty: 56 0RF
Rx Instructions:
Take 4 tablets per day for total dose of 10mg/day for 2 weeks
pantoprazole 20 mg tablet,delayed release (DR/EC)
20 mg PO DAILY Qty: 90 0RF
Rx Instructions:
Take 1 tablet daily by mouth for any heartburn related to steroid use
Continued
trazodone 50 mg Tablet
25 mg PO HS
gabapentin 300 mg Capsule
300 mg PO TID
lactulose 10 gram/15 mL Solution
30 g PO TID
magnesium oxide 400 mg magnesium Tablet
400 mg PO DAILY
magnesium oxide 400 mg magnesium Tablet
800 mg PO HS
lorazepam 0.5 mg Tablet
0.5 mg PO HSPRN PRN (Reason: anxiety)
folic acid 1 mg Tablet
1 mg PO DAILY
diphenhydramine-acetaminophen [Acetaminophen PM] 25-500 mg Tablet
2 tab PO HSPRN PRN (Reason: sleep)
Discontinued
thiamine HCl (vitamin B1) 100 mg Tablet
100 mg PO DAILY
Discharge Orders:
Discharge Patient (As Directed); Ordered 01/13/25
Ordered By: Jerad Espinal
Discharge Date and Time
Print Language: [place]
[2025-01-13] MEDS: FLUZONE (6 mos+) 2025-2026 FORMULA 0.5 ML IM (17:32)
== END 2025-01-13 18:24 | disposition home or self-care (01) | DRG 897 ==
LOC: 4 WEST ACU 16:55
PROVIDERS: Emergency Medicine; Physician Assistant Medical; ADMITTING PHYSICIAN Internal Medicine; ATTENDING PHYSICIAN Internal Medicine; EMERGENCY PHYSICIAN Emergency Medicine; FAMILY PHYSICIAN Physician Assistant
PROC: 3E02340 Introduction of Influenza Vaccine into Muscle, Percutaneous Approach (ICD-10-PCS; 2025-01-13)
DX: F10.239 Alcohol dependence with withdrawal, unspecified (principal); E83.42 Hypomagnesemia; E83.51 Hypocalcemia; E11.65 Type 2 diabetes mellitus with hyperglycemia; K70.30 Alcoholic cirrhosis of liver without ascites; F17.200 Nicotine dependence, unspecified, uncomplicated; E87.6 Hypokalemia; Z79.899 Other long term (current) drug therapy
CPT/HCPCS: 70450; 80048; 80053; 81003; 81015; 82140; 82550; 82962; 83036; 83735; 84100; 84484; 85025; 85027; 85610; 85652; 86140; 90656; 93005; 96361; 96365; 96375; 99285; G0008

== ENCOUNTER 2025-01-15 21:29 | Inpatient (IN) | payer OTHER, SELFPAY ==
[2025-01-15] VITALS (15 sets, daily range): BP systolic 166–185; BP diastolic 99–115; BMI 24.8; BMI 26.0
[2025-01-15 17:12] LABS: ALT (SGPT) 27 U/L (0-50); AST (SGOT) 54 U/L (17-59); Albumin 3.4 g/dl (3.5-5.0); Alkaline Phosphatase 451 U/L (38-126); Blood Urea Nitrogen 18 mg/dl (9-20); Calcium 8.9 mg/dl (8.4-10.2); Carbon Dioxide 22 mmol/L (22-30); Chloride 107 mmol/L (98-107); Estimated Creatinine Clearance 96 ml/min; Glucose 247 mg/dl (70-99); Lipase 91 U/L (23-300); Potassium 3.7 mmol/L (3.5-5.1); Sodium 137 mmol/L (135-145); eGFR > 60.00
[2025-01-15 17:14] LABS: Hematocrit 31.4 % (39.0-52.0); Hemoglobin 10.8 g/dL (13.0-18.0); Mean Corp Hgb Conc. 34.4 g/dL (33.0-37.0); Mean Corpuscular Volume 82.4 fL (80.0-94.0); Nucleated Red Blood Cells % 0 % (-); Platelet Count 109 10^3/uL (130-400); Red Cell Dist. Width 16.1 % (11.5-14.5); Total Protein 7.1 g/dl (6.3-8.2)
--- NOTE | 2025-01-15 17:19 | ED.GENMED ---
History of Present Illness
General
Chief Complaint: Alcohol Problem
Source: patient
Exam Limitations: none
Time Seen by Provider: 01/15/25 17:08
History of Present Illness
History of Present Illness:
See MDM
Past History
Past History
ED Past Medical History: Arrthythmia (Atrial flutter), GERD, HTN, Psychiatric (Anxiety, panic disorder) and Other (Alcohol abuse)
ED Past Surgical History: None
Social History
Tobacco: Non-smoker
Alcohol: Daily
Drug: Other (Admits to smoking crystal methamphetamine 2 days ago(04/2020))
Personal: Partner (Girlfriend of 4 years)
Living: with family
Employment: Employed (Self-employed)
Family History
Family History: Hypertension
Phy Exam
Physical Exam
Physical Exam:
See MDM
Scores
Withdrawal Assessment of Alcohol
Withdrawal Assessment Completed?: Yes
Nausea and Vomiting: Mild nausea with no vomiting
Tactile Disturbances: Very mild itching, pins and needles, burning or numbness
Tremor: Not visible, but can be felt fingertip to fingertip
Auditory Disturbances: Not present
Paroxysmal Sweats: No sweat visible
Visual Disturbances: Very mild sensitivity
Anxiety: Moderately anxious, or guarded, so anxiety is inferred
Headache, Fullness in Head: Very mild
Agitation: Moderately fidgety and restless
Orientation and clouding of sensorium: Oriented and can do serial additions
Total CIWA Score: 13
Alcohol Withdrawal Medication Recommendation: Equal to MSAS Score 5-7. Lorazepam 1mg IV or PO NOW & re-assess q2hrs
Course
Orders/Labs/Results
Orders:
Orders
01/15/25 16:43
Electrocardiogram (*1) Urgent
Reason for Study: Abdominal Pain
EKG- Treatment ONCE
01/15/25 16:51
Alcohol Urgent
Complete Blood Count/With Diff Urgent
Comprehensive Metabolic Panel Urgent
Lipase Urgent
01/15/25 17:14
Lorazepam [Ativan] 2 mg IV NOW STA
01/15/25 17:15
CT Head W/o Iv Contrast Urgent
Comment:
Reason For Exam: altered, possible fall
01/15/25 17:25
Ammonia Urgent
PTT Urgent
Prothrombin Time Urgent
01/15/25 19:56
Lactulose [Duphalac/Chronulac] 20 grams PO ONCE ONE
Abnormal Lab Results
01/15/25 01/15/25
16:51 17:25
RBC 3.81 L 10^6/uL
(4.70-6.10)
Hgb 10.8 L g/dL
(13.0-18.0)
Hct 31.4 L %
(39.0-52.0)
RDW 16.1 H %
(11.5-14.5)
Plt Count 109 L D 10^3/uL
(130-400)
MPV 11.6 H fL
(7.4-10.4)
Absolute Lymphs (auto) 0.8 L 10^3/uL
(1.2-3.4)
Absolute Monos (auto) 0.9 H 10^3/uL
(0.1-0.6)
Lymphocytes % 13.5 L %
(20.5-51.1)
Monocytes % 14.3 H %
(1.7-9.3)
PT 20.6 H Sec
(11.4-14.6)
Glucose 247 H mg/dl
(70-99)
Total Bilirubin 3.3 H mg/dl
(0.2-1.3)
Alkaline Phosphatase 451 H U/L
(38-126)
Ammonia 85 H umol/L
(9-30)
Albumin 3.4 L g/dl
(3.5-5.0)
01/15/25 16:51
01/15/25 16:51
Vital Signs
Initial and Last Documented VS:
Initial Vital Signs
Pulse Resp
138 24
01/15/25 16:44 01/15/25 16:44
Last Documented Vital Signs
Temp Pulse Resp BP Pulse Ox
97.8 F 124 20 177/112 97
01/15/25 16:46 01/15/25 19:30 01/15/25 18:00 01/15/25 19:30 01/15/25 19:30
MDM/Problems Addressed
Differential Diagnosis Includes:
Note:
CHIEF COMPLAINT(S)
Altered mental status and fall in the context of recent alcohol use.
HISTORY OF PRESENT ILLNESS
The patient is a 54-year-old male with a history of alcohol use disorder and newly diagnosed diabetes mellitus, presenting with altered mental status and a fall. He was recently discharged from the hospital for withdrawal management. Today, the
patient apparently consumed a significant amount of red wine, as discovered by his roommate, and was found in an upstairs bedroom lying in vomit. He has multiple bruises that were not present prior to this incident, suggesting trauma likely due to a
fall, though it is unclear whether he fell up or down the stairs. The patients has a hx of cirrhosis s/p TIPS procedure. Per family, there is no known history of illicit drug use, and the patient is primarily experiencing symptoms consistent with
alcohol withdrawal and hepatic encephalopathy. Patient is extremely fidgety and appears confused
PHYSICAL EXAM
General: Lying in bed. Very restless and fidgety
Skin: Warm, dry.
Head: Normocephalic, atraumatic
Neck: Appears supple, trachea midline.
Eyes, Ears, Nose, Mouth, and Throat: Dry mucous membranes
Cardiovascular: No signs of cyanosis. Tachycardic
Respiratory: Respirations are non-labored.
Abdomen: Non-distended
Musculoskeletal: No deformities
Neurological: Appears mildly delirious but moving all 4 extremities
Psychiatric: Fidgety and restless.
PLAN
- Administer lorazepam (Ativan) to address agitation associated with withdrawal.
- Order ammonia level testing to evaluate for hepatic encephalopathy.
- Conduct cranial CT scan due to patients altered state and history of falls.
DIFFERENTIAL DIAGNOSIS
The Differential Diagnosis includes, in no particular order, and is not limited to:
- Alcohol withdrawal syndrome
- Hepatic encephalopathy
- Traumatic brain injury
- Hypoglycemia
- Hypomagnesemia
- Intracranial hemorrhage
- Alcohol intoxication
- Metabolic acidosis
- Delirium
- Intoxication from other substances
SUMMARY OF ENCOUNTER
The patient presented to the emergency department with altered mental status and evidence of trauma, likely due to a fall in the context of alcohol intoxication. Considering his history, hepatic encephalopathy and alcohol withdrawal were the primary
concerns. The management included administering lorazepam for sedation and performing pertinent laboratory tests to assess for potential metabolic derangements and hepatic dysfunction. A CT scan was ordered to rule out intracranial injury. The
initial evaluation suggests a complex interplay of alcohol withdrawal with potential hepatic dysfunction fueling the current presentation.
MEDICAL DECISION MAKING
- Complexity of Data Reviewed: Chronic conditions affecting care include alcohol use disorder and newly diagnosed diabetes mellitus.
- Data:
- Category 1:
- Non-emergency department records reviewed, as it was mentioned that the patient had recent hepatic dysfunction with a history of a hepatic insult, and his glucose level was monitored.
- Clinical information was obtained partly from the patients roommate.
- Category 2:
- My independent interpretation of labs will include ammonia levels once available.
- Category 3:
- Discussion of management with my internal team for appropriate medication and imaging interventions required for the patients current state.
-Risk:
Prescription medication was administered, including lorazepam for withdrawal-related agitation.
No other social determinants or external records influencing care were explicitly mentioned or reviewed during this encounter.
CARE-UPDATE
01/15/25 - 18:04
Ammonia level elevated at 85, suggesting hepatic encephalopathy as a potential cause of symptoms. Awaiting results of head CT for further evaluation.
SUMMARY OF ENCOUNTER
The patient presented with altered mental status. Initial concerns centered around alcohol use, though his alcohol level was negative. Elevated ammonia levels raised the concern for hepatic encephalopathy. The family reported missed doses of
lactulose, recently increased due to a rising ammonia level. A cranial CT was performed considering the fall and vomiting history, but results were negative. Lactulose was ordered to manage ammonia levels.
PLAN
Administer lactulose to manage elevated ammonia levels due to hepatic encephalopathy.
INDEPENDENT REVIEW OF LABS AND INTERPRETATION OF TESTS
My independent review of ammonia level is elevated. My independent interpretation of the CT head is negative for acute pathology.
MEDICATION RECONCILIATION
Administered lactulose due to elevated ammonia levels.
MEDICAL DECISION MAKING
- Number and Complexity of Problems Addressed: Chronic conditions affecting care include alcohol use disorder, hepatic encephalopathy, and newly diagnosed diabetes mellitus. Differential Diagnosis includes: Alcohol withdrawal syndrome, Hepatic
encephalopathy, Traumatic brain injury, Hypoglycemia, Hypomagnesemia, Intracranial hemorrhage, Alcohol intoxication, Metabolic acidosis, Delirium.
- Data:
Category 1: Tests and documents include my independent review of the ammonia level and cranial CT scan.
Category 2: Input from family regarding missed doses of lactulose and recent dosage changes.
- Risk: Prescription medication was administered, including lactulose to address elevated ammonia levels.
DIAGNOSIS
Hepatic encephalopathy (K72.90).
*Pulse Oximetry
SaO2: 98
Oxygen Mode of Delivery: Room air
Patient hypoxic: no
*Critical Care Note
Total Time (30-74mins, 75-104mins- exclusive of procedures): 33 min
comment:
The high probability of a clinically significant, sudden or life threatening deterioration of the gastrointestinal system(s) required my full and direct attention, intervention and personal management. The aggregate critical care time was 33
minutes. This time is in addition to time spent performing reported procedures but includes the following:
[x] Data Review and interpretation
[x] Patient assessment and monitoring of vital signs
[x] Documentation
[x] Medication orders and management
ED Attending Note
-
Portions of this chart may have been created with voice recognition software.� Occasional wrong word or��sound alike� substitutions may have occurred due to the inherent limitations of voice recognition software.
Discharge Plan
Departure
Patient Disposition: Admit
Date of Disposition: 01/15/25
Time of Disposition: 19:59
Admit to: IMU
Presentation/result/management discussed w/ accepting MD/DO: Hospitalist
Discharge Problem:
Acute hepatic encephalopathy
Prescriptions:
No Action
trazodone 50 mg Tablet
25 mg PO HS
gabapentin 300 mg Capsule
300 mg PO TID
lactulose 10 gram/15 mL Solution
30 g PO TID
magnesium oxide 400 mg magnesium Tablet
400 mg PO DAILY
magnesium oxide 400 mg magnesium Tablet
800 mg PO HS
lorazepam 0.5 mg Tablet
0.5 mg PO HSPRN PRN (Reason: anxiety)
folic acid 1 mg Tablet
1 mg PO DAILY
diphenhydramine-acetaminophen [Acetaminophen PM] 25-500 mg Tablet
2 tab PO HSPRN PRN (Reason: sleep)
lactulose 10 gram/15 mL Solution
30 g PO TID 30 Days Qty: 4050 0RF
folic acid 1 mg Tablet
1 mg PO DAILY 30 Days Qty: 30 0RF
insulin glargine [Basaglar KwikPen U-100 Insulin] 100 unit/mL (3 mL) insulin pen
10 unit SC QPM 30 Days Qty: 3 0RF
insulin aspart U-100 100 unit/mL (3 mL) Insulin Pen
3 unit SC AC 30 Days Qty: 2.7 0RF
acetaminophen [Tylenol Extra Strength] 500 mg Tablet
1,000 mg PO Q6HPRN PRN (Reason: mild to moderate) 14 Days Qty: 30 0RF
thiamine mononitrate (vit B1) 100 mg Tablet
100 mg PO BID 30 Days Qty: 60 0RF
oxycodone 5 mg tablet
5 mg PO Q6H PRN (Reason: Pain) 5 Days Qty: 20 0RF
(DME) blood-glucose meter Kit
See Rx Instructions .Route Qty: 1 0RF
Rx Instructions:
As directed, ICD - E.11
(DME) lancets 17 gauge misc
See Rx Instructions .Route Qty: 100 0RF
Rx Instructions:
As directed, ICD - E.11
(DME) insulin syringe-needle U-100 [Advocate Syringes] 0.3 mL 30 gauge x 5/16' syringe
See Rx Instructions .Route Qty: 100 0RF
Rx Instructions:
As directed, ICD E.11
(DME) pen needle, diabetic [Advocate Pen Needle] 31 gauge x 3/16' needle
See Rx Instructions .Route Qty: 100 0RF
Rx Instructions:
As directed, ICD E.11
prednisone 2.5 mg tablet
2.5 mg PO DAILY Qty: 14 0RF
Rx Instructions:
take 1 tablet a day for 2 weeks (2.5mg/day)
prednisone 2.5 mg tablet
2.5 mg PO DAILY Qty: 28 0RF
Rx Instructions:
take 2 tablets per day for two weeks (5mg/day dose)
prednisone 2.5 mg tablet
2.5 mg PO DAILY Qty: 42 0RF
Rx Instructions:
take 3 tablets per day for total of 7.5mg/day for 2 weeks
prednisone 2.5 mg tablet
2.5 mg PO DAILY Qty: 56 0RF
Rx Instructions:
Take 4 tablets per day for total dose of 10mg/day for 2 weeks
pantoprazole 20 mg tablet,delayed release (DR/EC)
20 mg PO DAILY Qty: 90 0RF
Rx Instructions:
Take 1 tablet daily by mouth for any heartburn related to steroid use
Referrals:
Emilia Little PA-C [Family Provider, Internal Medicine]
Interventions
Interventions:
*Risk Screen - Suicide Last Done: 01/15/25 16:46
*General Assessment Last Done: 01/15/25 16:46
*Neglect/Abuse Screening Last Done: 01/15/25 16:46
*ED COVID-19 Vaccine History Last Done: 01/15/25 16:46
*ED Influenza Vaccine History Last Done: 01/15/25 16:46
[facility] Fall Risk Assessment Tool Last Done: 01/15/25 16:31
ED- Neurological Assessment Last Done: 01/15/25 16:46
ED-Psychological Assessment Last Done: 01/15/25 16:46
Discharge Date and Time
Print Language: NEPALESE
[2025-01-15] MEDS: ATIVAN 2 MG IV (17:22)
[2025-01-15 17:39] LABS: INR 1.80; PT 20.6 Sec (11.4-14.6)
[2025-01-15 17:40] LABS: APTT 31.9 Sec (23.4-35.0)
[2025-01-15 17:43] LABS: Ammonia 85 umol/L (9-30)
--- NOTE | 2025-01-15 20:20 | HPS.HSE ---
Addendum entered and electronically signed by Sophia Miranda MD 01/16/25 00:34:
opiates in UTox. Will obtain ABG.
patient remains sedated although waking up slightly more and stated 'OK' to RN on exam which is reassuring.
We discussed elevated MSAS scoring but patient's presentation and history aren't suggestive of withdrawal, RN to reach out if patient with tremors/diaphoresiis etc.
Original Note:
Family Physician
-
Family Physician: Emilia Little
Chief Complaint
-
patient brought in from home after found altered on floor after vomiting
History of Present Illness
Mr. Al Posadas is a 54 yo man with hx alcohol abuse, alcoholic cirrhosis s/p TIPS 2 months prior, recent admission 01/10-01/13/25 for alcohol withdrawal, new diagnosis DM II and electrolyte abnormalities brought in to the ER after found down at
home.
Patient had complaint of bilateral shoulder and hip pain last admission raising concern for polymyalgia rheumatica. He was started on a Prednisone taper with Protonix.
Patient's partner found him at home surrounded by vomit. Patient was very combative and confused. He required Ativan in the ER. He is not able to give any meaningful history. Concern that he had drank again but alcohol level undetectable in the
ER.
Medical History
Past Medical History
Past Medical History: Reports Arrhythmia (atrial fibrillation) and Other ( anxiety, panic disorder, alcohol use disorder, hypertension, GERD)
Additional Past Medical History:
Liver cirrhosis status post gastric variceal bleeding and status post TIPS
Past Surgical History: Reports None
Social History
Tobacco: Non-smoker
Alcohol: Daily
Drug: Marijuana
Family History
Family History: Not pertinent
Allergies / Home Medications
Allergies reflects when Allergies were last updated in [employer]
Home Medications with original date entered in [employer] [facility])
Allergy/Medication List:
Allergies
Allergy/AdvReac Type Severity Reaction Status Date / Time
chocolate flavor Allergy Unknown Verified 01/15/25 16:52
Home Medications
diphenhydramine 25 mg-acetaminophen 500 mg tablet (Acetaminophen PM) 2 tab PO HSPRN PRN sleep 01/10/25
folic acid 1 mg tablet 1 mg PO DAILY 01/10/25
gabapentin 300 mg capsule 300 mg PO TID 01/10/25
lactulose 10 gram/15 mL oral solution 45 g PO TID 01/10/25
magnesium oxide 800 mg PO BID 01/10/25
trazodone 50 mg tablet 25 mg PO HS 01/10/25
acetaminophen 500 mg tablet (Tylenol Extra Strength) 1,000 mg (2 x 500 mg) PO Q6HPRN PRN mild to moderate 2 weeks #30 tabs 01/13/25
insulin aspart U-100 100 unit/mL (3 mL) subcutaneous pen 3 unit (0.03 mL) SC AC 1 month #2.7 mL 01/13/25
oxycodone 5 mg tablet 5 mg PO Q6H PRN Pain 5 days #20 tabs 01/13/25
thiamine mononitrate (vit B1) 100 mg tablet 100 mg PO BID 1 month #60 tabs 01/13/25
insulin glargine 100 unit/mL (3 mL) subcutaneous pen (Lantus Solostar U-100 Insulin) 10 unit SC QPM 01/15/25
pantoprazole 20 mg tablet,delayed release 20 mg PO DAILY 01/15/25
prednisone 2.5 mg tablet 10 mg PO DIRECTED Anti-inflammatory 01/15/25
Review of Systems
-
Unable to obtain full review of systems at this time due to: Other (patient sedated )
History Source: Patient
Physical Exam
Vital Signs
Vital Signs
Temp Pulse Resp BP Pulse Ox
97.8 F 124 20 177/112 97
01/15/25 16:46 01/15/25 19:30 01/15/25 18:00 01/15/25 19:30 01/15/25 19:30
Physical Exam
General: Other (patient is intermittently moaning, not opening eyes on exam)
HEENT: PERRLA
Respiratory: No Wheezes
Cardiac: S1/S2 and Regular Rhythm
GI: Soft and Non Tender
Musculoskeletal: No Edema
Skin: Warm and Dry; No Rash
Neuro: Other (sedated and not following commands )
Psych: Confused
Laboratory Results
-
01/15/25 16:51
01/15/25 16:51
Laboratory Results
PT 20.6 Sec (11.4-14.6) H 01/15/25 17:25
INR 1.80 01/15/25 17:25
APTT 31.9 Sec (23.4-35.0) 01/15/25 17:25
Total Bilirubin 3.3 mg/dl (0.2-1.3) H 01/15/25 16:51
AST 54 U/L (17-59) 01/15/25 16:51
ALT 27 U/L (0-50) 01/15/25 16:51
Alkaline Phosphatase 451 U/L (38-126) H 01/15/25 16:51
Lipase 91 U/L (23-300) 01/15/25 16:51
Data Reviewed
-
Diagnostic Radiology: Report Reviewed by me
Lab Data: Labs Reviewed by me
Impression/Plan
-
Mr. Al Posadas is a 54 yo man with hx alcohol abuse, alcoholic cirrhosis s/p TIPS 2 months prior, recent admission 01/10-01/13/25 for alcohol withdrawal, new diagnosis DM II and electrolyte abnormalities brought in to the ER after found down at
home.
Triage VS: T 97.8, P 138, RR 24, BP 177/112, SpO2 97%
LABS: WBC 6.2, Hg 10.8, PLT 109, Na 137, K+ 3.7, CO2 22, BUN 18, Cr 0.9, Glucose 247, T. Bili 3.3, AST 54, ALT 27, Alk Phos 451, Ammonia 85, Lipase [address]
IMPRESSION:
No evidence of acute intracranial abnormality.
MAR: Ativan 2mg, Lactulose
Hepatic Encephalopathy
AMS
- Head CT without acute event. Elevated ammonia level. He is not alert enough to provide meaningful history, follow commands, or take oral medication. Alcohol level - none detected. Mental status now more sedated in setting of 2mg Ativan.
Unlikely that patient was in withdrawal as he was just admitted and treated for withdrawal (low MSAS scores at end of stay). Family states they did not see him drink since he's been home and it would have only been for one day. Alcohol level
undetectable at admission.
-admit to telemetry
-Lactulose enema x 1 now (patient would likely rip out NGT, he is fidgeting in bed)
-Lactulose enema q6 hours until more alert to take oral
-IVF
-check flu/covid, no e/o GI bleeding
-high dose IV Thiamine
-follow up B12, TSH, check tylenol/salicylate levels, UTox
-hold [employer] sedating meds: Gabapentin, Trazodone
Hx Alcohol Abuse
-MSAS scoring, hold off on PRN Ativan as history is not suggestive of withdrawal. If patient becomes more agitated/diaphoretic and mental status not improving with Lactulose will need to treat possible alcohol withdrawal along with hepatic
encephalopathy
concern for polymyalgia rheumatica diagnosed last admission
-change to IV Decadron while NPO, patient was on prednisone 10mg x 2 weeks then taper by 2.5mg every 2 weeks with outpatient rheum appointment
IDDM
-newly diagnosed last admission
-home dose Lantus 10 units qPM, aspart 3 units pre-meals
-Lantus 4 units qhs, hold pre-meal while NPO
-ISS low
Alcohol Cirrhosis
s/p TIPS procedure
DVT PPx SCD
FULL CODE - discussed with family at bedside
76 minutes spent on patient care
[2025-01-15] MEDS: THIAMINE INJECTION 255 MG IV (21:26)
[2025-01-15 21:29] LABS: COVID-19 Antigen Negative (Negative)
[2025-01-15 21:30] LABS: Acetaminophen < 10 ug/ml (10-30); Magnesium 1.4 mg/dl (1.6-2.3); Salicylate < 1.0 mg/dl (2.0-20.0)
[2025-01-15] MEDS: LACTULOSE ENEMA 300 ML RECTAL (22:24)
[2025-01-15] MEDS: MAGNESIUM SULFATE 50 IV (23:21)
[2025-01-15] MEDS: NSS 1000 IV (23:21)
[2025-01-15 23:38] LABS: Glucose - Point of Care 180 mg/dl (70-99)
[2025-01-15] MEDS: LANTUS 0.04 UNITS SC (23:41)
[2025-01-15] MEDS: KCL 260 MEQ IV (23:43)
[2025-01-16] VITALS (15 sets, daily range): BP systolic 139–179; BP diastolic 92–163; BMI 26.0; BMI 25.9
--- NOTE | 2025-01-16 01:18 | PTCARENOTE ---
Assumed care of Pt from ED RN. Pt not responding to almost all questions. Once he said 'OK' and opened his eyes. ED RN had just given first Lactulose enema around 2300ish. When Pt arrived he was incontinent of liquid stool and formed stool. Pt
significant other Marbella is bed side, she is a RN. Pt remains MSAS at this time. No orders for MSAS Ativan placed at this time. Phone conversation with Dr. Miranda, ordering ABG for assessment. Also discussed medication, trying to keep away from Ativan
at this time, if symptoms change and Pt appearing to start going though withdrawal orders will be placed. Assessment care and vitals as charted.
[2025-01-16 02:05] LABS: B.E. -1.2 mmol/L; HCO3 21.1 mmol/L (21-28); O2 Saturation % 99.0 % (94-98); PCO2 27 mmHg (35-48); PO2 87 mmHg (83-108)
--- NOTE | 2025-01-16 02:07 | PTCARENOTE ---
Pt becoming more alert. Pt opening eyes and moving around in bed to get comfortable. Pt answering yes and no questions more often. Education and emotional support given. bed alarm fuel conversion technician waddell within reach.
[2025-01-16 05:09] LABS: Hematocrit 29.0 % (39.0-52.0); Hemoglobin 10.0 g/dL (13.0-18.0); Mean Corp Hgb Conc. 34.5 g/dL (33.0-37.0); Mean Corpuscular Volume 80.3 fL (80.0-94.0); Nucleated Red Blood Cells % 0 % (-); Platelet Count 95 10^3/uL (130-400); Red Cell Dist. Width 16.3 % (11.5-14.5)
[2025-01-16 05:12] LABS: ALT (SGPT) 25 U/L (0-50); AST (SGOT) 57 U/L (17-59); Albumin 3.0 g/dl (3.5-5.0); Alkaline Phosphatase 343 U/L (38-126); Blood Urea Nitrogen 12 mg/dl (9-20); Calcium 8.7 mg/dl (8.4-10.2); Carbon Dioxide 20 mmol/L (22-30); Chloride 111 mmol/L (98-107); Estimated Creatinine Clearance 98 ml/min; Glucose 151 mg/dl (70-99); Magnesium 1.7 mg/dl (1.6-2.3); Potassium 3.8 mmol/L (3.5-5.1); Sodium 137 mmol/L (135-145); Total Protein 6.7 g/dl (6.3-8.2); eGFR > 60.00
[2025-01-16] MEDS: LACTULOSE ENEMA 300 ML RECTAL (05:17)
[2025-01-16] MEDS: THIAMINE INJECTION 255 MG IV ×3 (05:17→21:15)
[2025-01-16 05:43] LABS: TSH 1.87 uIU/ml (0.47-4.68)
[2025-01-16 05:51] LABS: Glucose - Point of Care 147 mg/dl (70-99)
[2025-01-16 06:02] LABS: Vitamin B12 709 pg/ml (239-931)
--- NOTE | 2025-01-16 07:24 | W.PN.HOSP.TC ---
Today's Communication/Plan
-
- nursing speech screening to evaluate swallowing function
- lactulose enemas
- per GI, start rifaximin
Assessment / Plan
Assessment / Plan
In summary, 54 yo M PMH alcohol abuse, alcoholic cirrhosis s/p TIPS 2 months prior, recent admission 01/10-01/13/25 for alcohol withdrawal, new diagnosis DM II and electrolyte abnormalities brought in to the ER after found down at home currently most
concerning for hepatic encephalopathy
Altered mental status
Hepatic encephalopathy
- Ammonia 86, EtOH nondetectable
- Kept NPO because was not alert enough to take PO meds
- no concern for hematemesis?
- Lactulose enema
- IV thiamine
- folic acid when PO able
- IVF NS 80cc/hr
- IV ondansetron available prn
- nursing bedside speech screening to evaluate if can tolerate PO
- consulted GI, per them, starting rifaximin 550mg bid
EtOH abuse
EtOH cirrhosis
- TIPS 2 months prior
- MSAS 4 this morning
Concern for polymyalgia rheumatica
- IV dexamethasone 1.5mg because was on outpatient prednisone taper 10mg x 2 weeks / decrease by 2.5mg each time
T2DM - new diagnosis
- insulin sliding scale
- lantus 4 units qhs, but pre-meal insulin is held while NPO
Diet: NPO
Code: Full
DVTppx: SCDs
Anticipated Discharge: > 48 hours
Subjective/Interval History
-
Date of Service: January 16, 2025
54 yo M PMH EtOH dependence with cirrhosis s/p TIPS 2 months prior found by his partner on the floor with vomit presented to the ED with altered mental status.
He was recently admitted for possible EtOH withdrawal where he was found to have T2DM - new diagnosis.
In the ED, documentation note he is extremely fidgety and confused
VS: HR 138, RR 24, BP 177/112, afebrile
Labs n.f
Ammonia 85, EtOH undetectable
K 3.7; Mg 1.4
BG 247
ABG 7.5//87/21.[address] no acute intracranial abnormality
He was admitted for hepatic encepalopathy and given lactulose enema, IV thiamine, switched to IV dexamethasone, insulin sliding scale
this morning, he is more verbal but still somewhat altered
Objective Data
-
Labs:
Laboratory Results
01/16/25 01/16/25
01:50 04:33
WBC 5.4
Hgb 10.0 L
Hct 29.0 L
Plt Count 95 L
HCO3 21.1
Sodium 137
Potassium 3.8
Chloride 111 H
Carbon Dioxide 20 L
BUN 12
Creatinine 0.8
Glucose 151 H
Calcium 8.7
Total Bilirubin 3.2 H
AST 57
ALT 25
Alkaline Phosphatase 343 H
Hgb 10.0 stable
Plt 95
K 3.8
Mg 1.7
BG 151
B12 709
TSH 1.87
Vital Signs:
Vital Signs
Temp Pulse Resp BP Pulse Ox
98.2 F 116 19 139/106 100
01/16/25 03:00 01/16/25 06:00 01/16/25 06:00 01/16/25 06:00 01/16/25 06:00
I&O
01/15/25 01/16/25 01/17/25
06:59 06:59 06:59
Intake Total 1045 / 1045
Output Total 550 / 550
Balance 495 / 495
Review of Systems
-
Unable to obtain full review of systems at this time due to: Acuity
Physical Exam
-
General: Other (appears altered )
HEENT: Normocephalic
Respiratory: Clear to Auscultation
Cardiac: Other (no murmurs)
GI: Soft, Nontender and Normal Bowel Sounds
Musculoskeletal: No Edema
Skin: Other (no jaundice)
Neuro: No Motor Deficits and Other (arousable, AOx2-2.5, but appears altered still)
Psych: Confused and Other
--- NOTE | 2025-01-16 08:09 | PTCARENOTE ---
Pt Awake and rolling around in the bed, trying to get comfortable, Girlfriend at bedside trying to help him. Pt looks to be settling in
[2025-01-16] MEDS: DECADRON 1.5 MG IV (09:04)
[2025-01-16] MEDS: NSS (PRESERVATIVE FREE) 10 ML IV (09:05)
[2025-01-16] MEDS: PROTONIX IV 40 MG IV (09:05)
[2025-01-16] MEDS: FOLVITE PO (09:06)
[2025-01-16] MEDS: NOVOLOG FLEXPEN-LOW RESISTANCE SC (10:12)
--- NOTE | 2025-01-16 10:51 | CON.GI ---
Addendum entered and electronically signed by Al Nair MD 01/16/25 13:38:
Patient seen and examined, agree with nurse practitioner note. The patient is a 54-year-old male with past medical history as noted here with confusion and lethargy. He has a history of cirrhosis secondary to alcohol, with gastroesophageal
variceal bleeding requiring TIPS at the [facility]. At that time he was discharged off of his antihypertensives. He then had a relapse of alcohol was admitted with encephalopathy and discharged with lactulose. He now returns 2
days later with lethargy and confusion. He complains of shoulder pain though denies any other abdominal pain. He has not had any melena or hematochezia. He denies any fevers or chills. On exam he is very hypertensive and tachycardic, though no
significant abdominal tenderness or obvious ascites. His mental status is much improved after lactulose enemas.
1. Cirrhosis: Secondary to alcohol with recent relapse, decompensated with gastroesophageal varices, status post TIPS, with hepatic encephalopathy after TIPS procedure. At this point his mental status is much improved after lactulose enemas and
would continue lactulose, titrating to 2-3 loose bowel movements a day and mental status, and add rifaximin twice daily. Will continue to trend labs for now.
2. Hypertension/tachycardia: Unclear etiology. He states that he did not have any alcohol in the 2 days after his discharge, and his alcohol levels undetectable, though I think DT is still consideration. I discussed with internal medicine
resident, will defer treatment to internal medicine.
Original Note:
Consultation
-
Date/Time Consultation Requested: 01/16/25 1045
Date/Time Consultation Performed: 01/16/25 1050
Requesting Provider: Jerad Espinal MD
Performing Provider: TRAY Nicholas, Pk Nair MD
Reason for Consultation: hepatic encephalopathy
Medical History
Chief Complaint / HPI
Chief Complaint: change in mental status
History of Present Illness:
Pt is a 54yo with hx PAF not on anticoagulation, anxiety, panic disorder, alcohol use disorder, cirrhosis (s/p liver biopsy 11/10-- mild to moderate steatohepatitis and cirrhosis c/w ETOH related disease), hypertension, GERD, newly diagnosed NIDDM
with admission in October with hematemesis. During admission was noted with hypotension, anemia and melena with concern for UGI bleeding. He completed EGD with grade I EV with no bleeding or sigmata of recent bleeding, red blood in gastric
fundus, type 2 GOV2- esophageal varices which extend to fundus with oozing blood. Portal HTN gastropathy normal duodenum. He was sent to [place] with improvement. He went 11/13 for TIPS procedure. He had follow up 12/10 with concern for subclinical HE
and advised to d/c blood pressure meds and if not improved to titrate up lactulose to BID from daily. He did state he had difficulty with lactulose as drives for his job and concern for bathroom access and was advised goal 3-4 stool daily. He saw
Dr. Rivera from [place] [facility] 12/12 with follow up US with patent TIPS and improved LFT's. With plan for repeat EGD and per girlfriend would need colonoscopy as overdue (not scheduled yet) then 6 month follow up. He was then admitted back to [place]
01/10-01/13 with concern for ETOH relapse with hepatic encephalopathy and new DM. He was also started on steroids for concern for PMR with shoulder pain. On discharge ammonia wass 86 and lactulose was increased. Per girlfriend patient dose not have
24 hour supervision. In the time period of being home had some sleepiness and likely missed medication. Pt was unclear about ETOH during 1-2 days at home but ETOH level on 01/15 was not detected.
Pt admits to some GERD with non bloody emesis. Per family no stools for several days with last admit but had several stools today with getting lactulose enemas. He is currently able to take oral medication with some improved mentation since
admission. Per family no dysphagia, abdominal pain, blood or black in stools. On return admission hbg 10.8, platelets 109, mag 1.4, ammonia 85, bili 3.3, AST 54, ALT 27, alk phos 351, albumin 3.4. stable chemistry except glucose 247. HCT
negative. Pt also noted with persistent tachycardia and HTN since last admission.
11/02/24 EGD - Mekapati- grade I EV with no bleeding or sigmata of recent bleeding, red blood in gastric fundus, type 2 GOV2- esophageal varices which extend to fundus with oozing blood. Portal HTN gastropathy normal duodenum.
Past Medical History
Past Medical History: Arrhythmias (PAF), GERD, HTN, NIDDM, Psychiatric (anxiety, panic disorder, alcohol use disorder) and Other
Past Surgical History: Other (none)
Social History
Tobacco: Non-Smoker
Alcohol: Other (hx heavy ETOH quit for 61 days then relapsed 10 days prior to admission)
Drug: None
Personal: Other (girlfriend )
Living: With Roomate
Employment: Employed
Family History
Family History: Other (- (per last eval He has family history of colon polyps and second-degree relatives with colon cancer) mother with hx ETOH use, mother lung CA, father prostate CA)
Allergies / Home Medications
Allergy/AdvReac Type Severity Reaction Status Date / Time
chocolate flavor Allergy Unknown Verified 01/15/25 16:52
�Medication �Instructions �Recorded
diphenhydramine 25 2 tab PO HSPRN PRN sleep 01/10/25
mg-acetaminophen 500 mg tablet
(Acetaminophen PM)
folic acid 1 mg tablet 1 mg PO DAILY Supplement 01/10/25
gabapentin 300 mg capsule 300 mg PO TID Pain 01/10/25
lactulose 10 gram/15 mL oral 45 g PO TID 01/10/25
solution
magnesium oxide 800 mg PO BID Supplement 01/10/25
trazodone 50 mg tablet 25 mg PO HS Sleep 01/10/25
acetaminophen 500 mg tablet 1,000 mg (2 x 500 mg) PO Q6HPRN 01/13/25
(Tylenol Extra Strength) PRN mild to moderate 2 weeks #30
tabs
oxycodone 5 mg tablet 5 mg PO Q6H PRN Pain 5 days #20 01/13/25
tabs
insulin glargine 100 unit/mL (3 10 unit SC QPM Diabetes 01/15/25
mL) subcutaneous pen (Lantus
Solostar U-100 Insulin)
pantoprazole 20 mg tablet,delayed 20 mg PO DAILY Gastrointestinal 01/15/25
release Issue
prednisone 2.5 mg tablet 10 mg PO DIRECTED 01/15/25
Anti-inflammatory
insulin aspart U-100 100 unit/mL 3 unit SC AC Diabetes 01/16/25
(3 mL) subcutaneous pen
thiamine mononitrate (vit B1) 100 100 mg PO BID Supplement 01/16/25
mg tablet
Review of Systems
-
History Source: Patient and Family (girlfriend )
Constitutional: Reports Weight Loss
EENT: Reports No Symptoms
Respiratory: Reports No Symptoms
Cardiac: Reports No Symptoms
Abdomen/GI: Reports Nausea, Vomiting and Diarrhea (with enema and lactulose )
: Reports Frequency
Musculoskeletal: Reports Other (shoulder/back pain )
Skin: Reports No Symptoms
Neurological: Reports Weakness
Endocrine: Reports No Symptoms
Hematologic/Lymphatic: Reports No Symptoms
Vital Signs
Temp Pulse Resp BP Pulse Ox
98.2 F 110 14 164/107 99
01/16/25 07:44 01/16/25 10:00 01/16/25 10:00 01/16/25 10:00 01/16/25 10:11
Physical Exam
Exam
General: Other (restless but oriented + asterixis )
HEENT: Normocephalic and Anicteric
Respiratory: Clear
Cardiac: Other (tachy )
GI: Soft, Non Tender and Non Distended
Musculoskeletal: No Clubbing and No Cyanosis
Skin: Warm and Dry
Neuro: Awake, Alert and Other (oriented but some confused conversation)
Psych: Other (restless )
Results
WBC 5.4 10^3/uL (4.8-10.8) 01/16/25 04:33
Hgb 10.0 g/dL (13.0-18.0) L 01/16/25 04:33
Hct 29.0 % (39.0-52.0) L 01/16/25 04:33
MCV 80.3 fL (80.0-94.0) 01/16/25 04:33
Plt Count 95 10^3/uL (130-400) L 01/16/25 04:33
Absolute Neuts (auto) 2.8 10^3/uL (1.4-6.5) 01/16/25 04:33
PT 20.6 Sec (11.4-14.6) H 01/15/25 17:25
INR 1.80 01/15/25 17:25
APTT 31.9 Sec (23.4-35.0) 01/15/25 17:25
Sodium 137 mmol/L (135-145) 01/16/25 04:33
Potassium 3.8 mmol/L (3.5-5.1) 01/16/25 04:33
Chloride 111 mmol/L (98-107) H 01/16/25 04:33
Carbon Dioxide 20 mmol/L (22-30) L 01/16/25 04:33
BUN 12 mg/dl (9-20) 01/16/25 04:33
Creatinine 0.8 mg/dL (0.7-1.3) 01/16/25 04:33
Calcium 8.7 mg/dl (8.4-10.2) 01/16/25 04:33
Total Bilirubin 3.2 mg/dl (0.2-1.3) H 01/16/25 04:33
AST 57 U/L (17-59) 01/16/25 04:33
ALT 25 U/L (0-50) 01/16/25 04:33
Alkaline Phosphatase 343 U/L (38-126) H 01/16/25 04:33
Lipase 91 U/L (23-300) 01/15/25 16:51
Diagnostic Image Results:
01/15/25 HCT
No evidence of acute intracranial abnormality.
Prior GI Procedures:
EGD: 11/02/24 EGD - Mekapati- grade I EV with no bleeding or sigmata of recent bleeding, red blood in gastric fundus, type 2 GOV2- esophageal varices which extend to fundus with oozing blood. Portal HTN gastropathy normal duodenum.
Colonoscopy: 10/24/2016
Impression: - Internal hemorrhoids that prolapse with straining, but
spontaneously regress to the resting position (Grade II)
found on perianal exam.
- The entire examined colon is normal.
- No specimens collected
Assessment / Plan
-
Pt is a 54yo with hx PAF not on anticoagulation, anxiety, panic disorder, alcohol use disorder, cirrhosis (s/p liver biopsy - mild to moderate steatohepatitis and cirrhosis c/w ETOH related disease), hypertension, GERD, newly diagnosed NIDDM
with admission in October with hematemesis. During admission was noted with hypotension, anemia and melena with concern for UGI bleeding. He completed EGD with grade I EV with no bleeding or sigmata of recent bleeding, red blood in gastric
fundus, type 2 GOV2- esophageal varices which extend to fundus with oozing blood. Portal HTN gastropathy normal duodenum. He was sent to [place] with improvement. He went 11/13 for TIPS procedure. He had follow up 12/10 with concern for subclinical HE
and advised to d/c blood pressure meds and if not improved to titrate up lactulose to BID from daily. He did state he had difficulty with lactulose as drives for his job and concern for bathroom access and was advised goal 3-4 stool daily. He saw
Dr. Rivera from [place] [facility] 12/12 with follow up US with patent TIPS and improved LFT's. With plan for repeat EGD and per girlfriend would need colonoscopy as overdue (not scheduled yet) then 6 month follow up. He was then admitted back to [place]
01/10-01/13 with concern for ETOH relapse with hepatic encephalopathy and new DM. He was also started on steroids for concern for PMR with shoulder pain. On discharge ammonia wass 86 and lactulose was increased. Per girlfriend patient dose not have
24 hour supervision. In the time period of being home had some sleepiness and likely missed medication. Pt was unclear about ETOH during 1-2 days at home but ETOH level on 01/15 was not detected. Pt admits to some GERD with non bloody emesis.
Per family no stools for several days with last admit but had several stools today with getting lactulose enemas. He is currently able to take oral medication with some improved mentation since admission. On return admission hbg 10.8, platelets
109, ammonia 85, mag 1.4, bili 3.3, AST 54, ALT 27, alk phos 351, albumin 3.4. stable chemistry except glucose 247. HCT negative. Pt also noted with persistent tachycardia and HTN since last admission.
11/02/24 EGD - Mekapati- grade I EV with no bleeding or sigmata of recent bleeding, red blood in gastric fundus, type 2 GOV2- esophageal varices which extend to fundus with oozing blood. Portal HTN gastropathy normal duodenum.
-concern for hepatic encephalopathy
-tachycardia/hypertension
-hypomagnesemia
-ETOH withdrawal with relapse 10 days prior to admission
-cirrhosis- ETOH related (s/p liver biopsy 11/10-- mild to moderate steatohepatitis and cirrhosis c/w ETOH related disease)
-pror GI bleed- GOV-2 esophageal varices extend to fundus
-S/p TIPS 11/13 at [place]
-back/shoulder pain with recent steroids added for possible PMR
-ETOH abuse disorder
-newly diagnosed NIDDM
-hypoalbuminemia
-thrombocytopenia
-coagulopathy
other med problems:
- PAF not on anticoagulation, anxiety, panic disorder,GERD
PLAN:
etiology of hepatic encephalopathy related to recent ETOH binge, med non compliance(last likely missed dose on discharge), electrolyte imbalance with persistent low mag, vs other
check blood cx to rule out infectious, hbg stable no signs of GI bleeding
check US doppler for tips patency
per girlfriend mental status with some improvement and starting to take oral meds
will transition lactulose to PO 45grm TID and continue PRN enema if unable to take
cont Xifaxan--(Pt not on at home- may need to check cost)
hbg stable
ok for clear diet-- for speech eval
MELD 3.0 17 based on admission labs cont to trend
Dr. Nair review with medical team about tachycardia and HTN-- t/c restart of medication-- was on Metoprolol and Lisinopril prior to October admit but then held with some confusion with TIPS
ETOH abstinence
cont management per medical team for concern for component of withdrawal
cont thiamine and folate
cont to replete mag
cont PPI daily
girlfriend updated
updated nursing staff
-
-
Thank you for consultation and allowing me to participate in the patient's care. Please call the contingents supervisor GI physician during the after hours with any questions or concerns.
[2025-01-16] MEDS: XIFAXAN 550 MG PO ×2 (11:21→19:26)
--- NOTE | 2025-01-16 11:42 | CM ---
I.A: Completed By LUIS MIGUEL Summers. 54 yo man with hx alcohol abuse, alcoholic cirrhosis s/p TIPS 2 months prior, recent admission 01/10-01/13/25 for alcohol withdrawal, new diagnosis DM II and electrolyte abnormalities brought in to the ER after found down
at home.
Patient's partner found him at home surrounded by vomit. Patient was very combative and confused. He required Ativan in the ER. He is not able to give any meaningful history. Concern that he had drank again but alcohol level undetectable in the
ER.
Chart Reviewed- Lives in a townhouse with father and friend, Independent and no DME, No VN/PT, No STR.
PCP Dr Emilia Little (Last admission said a Dr. Aquino)
Pharmacy [facility]
Last admission, CM consult ; discussed substance abuse support, Patientt declined stating that he has his own resources for outpatient like AA. Not interested in rehab. PLAN: Anticipate Home No Needs vs. VN.
[2025-01-16 11:56] LABS: Glucose - Point of Care 163 mg/dl (70-99)
[2025-01-16] MEDS: NOVOLOG FLEXPEN-LOW RESISTANCE 1 UNITS SC (12:19)
[2025-01-16] MEDS: NSS 1000 IV (13:10)
[2025-01-16 13:11] LABS: Urine Character Clear (Clear)
[2025-01-16 13:19] LABS: Urine Red Blood Cell 16-20 /HPF (0-2); Urine White Cell None Seen /HPF (0-5)
[2025-01-16] MEDS: CATAPRES 0.1 MG PO ×2 (13:56→19:26)
[2025-01-16] MEDS: MORPHINE SULFATE 1 MG IV ×2 (13:57→21:15)
--- NOTE | 2025-01-16 15:12 | PTOTSP ---
Speech Therapy Evaluation:
Pt with acute risk factors of dysphagia including AMS in the setting of hepatic encephalopathy. Oral phase prolonged 2/2 edentulous state (partner bringing dentures tomorrow). No overt s/sx of aspiration across trials. No chest imaging completed
thus far, however WBC WNL, pt on room air, and without dysphagia hx. Aspiration risk increased during periods of lethargy/confusion.
Recommend:
1. Regular solids and thin liquids with softer selections per pt preference
2. Meds as tolerated
3. Strict aspiration and reflux precautions
4. Close supervision and assistance with PO intake
5. DEPUTY CHIEF MAGISTRATE to follow to monitor tolerance of diet and determine if pt would benefit from instrumental assessment
[2025-01-16] MEDS: DUPHALAC/CHRONULAC 45 GRAMS PO ×2 (16:56→21:15)
[2025-01-16] MEDS: NOVOLOG FLEXPEN-LOW RESISTANCE 3 UNITS SC (16:59)
[2025-01-16 17:08] LABS: Glucose - Point of Care 265 mg/dl (70-99)
--- NOTE | 2025-01-16 17:09 | PTCARENOTE ---
Pt much more alert and oriented, using bed solis properly. Interacting properly with visitors and staff.
[2025-01-16] MEDS: LANTUS 0.04 UNITS SC (18:04)
--- NOTE | 2025-01-16 20:44 | PTCARENOTE ---
assumed care of patient. pt is AAOx3, slow speech, per patient, says he is talking weird because he does not have his dentures. VSS. able to make needs known. MSAS-2 because of HR, HR 120s-130s, ST. inc. of urine, condom cath intact draining yellow
urine. pt able to turn self in bed without issues. at times patient taking off gown and heart monitor. educated on leaving wires alone. bed alarm on for safety. IV fluids infusing. urine specimen sent down per order. care ongoing.
[2025-01-16 20:57] LABS: Glucose - Point of Care 281 mg/dl (70-99)
--- NOTE | 2025-01-16 21:30 | PTCARENOTE ---
pt with complaints of left and right shoulder pain. medicated with IV morphine per APR.
[2025-01-17] VITALS (13 sets, daily range): BP systolic 101–149; BP diastolic 68–102; PULSE 83
[2025-01-17] MEDS: NSS 1000 IV ×3 (02:04→20:12)
[2025-01-17] MEDS: THIAMINE INJECTION 255 MG IV (05:48)
[2025-01-17 06:14] LABS: INR 1.96; PT 22.0 Sec (11.4-14.6)
[2025-01-17 06:23] LABS: Hematocrit 25.8 % (39.0-52.0); Hemoglobin 8.9 g/dL (13.0-18.0); Mean Corp Hgb Conc. 34.5 g/dL (33.0-37.0); Mean Corpuscular Volume 79.9 fL (80.0-94.0); Platelet Count 79 10^3/uL (130-400); Red Cell Dist. Width 15.9 % (11.5-14.5)
[2025-01-17 06:37] LABS: ALT (SGPT) 21 U/L (0-50); AST (SGOT) 34 U/L (17-59); Albumin 2.6 g/dl (3.5-5.0); Alkaline Phosphatase 250 U/L (38-126); Blood Urea Nitrogen 15 mg/dl (9-20); Calcium 8.7 mg/dl (8.4-10.2); Carbon Dioxide 19 mmol/L (22-30); Chloride 112 mmol/L (98-107); Estimated Creatinine Clearance 98 ml/min; Glucose 188 mg/dl (70-99); Magnesium 1.3 mg/dl (1.6-2.3); Potassium 3.7 mmol/L (3.5-5.1); Sodium 135 mmol/L (135-145); Total Protein 6.1 g/dl (6.3-8.2); eGFR > 60.00
--- NOTE | 2025-01-17 07:27 | W.PN.HOSP.TC ---
Today's Communication/Plan
-
- transition meds from PO to IV (steroids, thiamine, etc)
- replete electrolytes
- downgrade to telemetry
- f/u PT/OT recommendations
Assessment / Plan
Assessment / Plan
In summary, 54 yo M PMH alcohol abuse, alcoholic cirrhosis s/p TIPS 2 months prior, recent admission 01/10-01/13/25 for alcohol withdrawal, new diagnosis DM II and electrolyte abnormalities brought in to the ER after found down at home currently most
concerning for hepatic encephalopathy
Altered mental status
Hepatic encephalopathy likely due to EtOH relapse
- Ammonia 86, he reports last drink was 01/13 (pint of vodka), which was day of discharge
- IVF NS 80cc/hr
- IV ondansetron available prn
- mental status improved, able to tolerate PO meds
- IV thiamine -> PO thiamine
- continue folic acid PO
- IV dexamethasone to PO prednisone
- started rifaximin 550mg bid 01/16
- f/u GI recs
Hypomagnesemia
- replete with 4g IV Mg
- Aim for K > 4
- 40 KCl mEQ PO ordered
EtOH abuse
EtOH cirrhosis
- TIPS 2 months prior
- MSAS 2 this morning
- CM aware that he experienced EtOH relapse, dispo planning likely to rehab
Concern for polymyalgia rheumatica
- IV dexamethasone 1.5mg because was on outpatient prednisone taper 10mg x 2 weeks / decrease by 2.5mg each time
- transition to PO prednisone
T2DM - new diagnosis
- insulin sliding scale
- lantus 4 units qhs, but pre-meal insulin is held while NPO
Diet: advance to diabetic diet
Code: Full
DVTppx: SCDs
Anticipated Discharge: 24 - 48 hours
Subjective/Interval History
-
Date of Service: January 17, 2025
mental status much improved
he reports that he drank EtOH on night of last discharge
denies hallucinations
started rifaximin and several PO meds yesterday
Objective Data
-
Labs:
Laboratory Results
01/17/25
05:53
WBC 6.0
Hgb 8.9 L
Hct 25.8 L
Plt Count 79 L
PT 22.0 H
INR 1.96
Sodium 135
Potassium 3.7
Chloride 112 H
Carbon Dioxide 19 L
BUN 15
Creatinine 0.8
Glucose 188 H
Calcium 8.7
Total Bilirubin 2.9 H
AST 34
ALT 21
Alkaline Phosphatase 250 H
Plt 109 -> 95 -> 79
INR 1.96
Mg 1.3
Vital Signs:
Vital Signs
Temp Pulse Resp BP Pulse Ox
98.0 F 81 13 118/70 100
01/17/25 03:50 01/17/25 06:00 01/17/25 06:00 01/17/25 06:00 01/17/25 02:00
I&O
01/16/25 01/17/25 01/18/25
06:59 06:59 06:59
Intake Total 1045 / 1045 1210 / 1210
Output Total 550 / 550 800 / 800
Balance 495 / 495 410 / 410
Review of Systems
-
History Source: Patient
Constitutional: Reports No Symptoms
EENT: Reports No Symptoms Reported
Respiratory: Reports No Symptoms
Cardiac: Reports No Symptoms
Abdomen/GI: Reports No Symptoms
Musculoskeletal: Reports No Symptoms
Neuro: Reports No Symptoms
Physical Exam
-
General: Other (appears altered )
HEENT: Normocephalic
Respiratory: Clear to Auscultation
Cardiac: Other (no murmurs)
GI: Soft, Nontender and Normal Bowel Sounds
Musculoskeletal: No Edema
Skin: Other (no jaundice)
Neuro: AO x 3, No Motor Deficits and Nonfocal/Grossly Intact
Psych: Calm
[2025-01-17 08:16] LABS: Glucose - Point of Care 191 mg/dl (70-99)
--- NOTE | 2025-01-17 09:39 | PTCARENOTE ---
Patient received from night filler. Patient resting comfortably in bed. AAO but a little forgetful, VSS. No events noted overnight. Complaints of pain in his shoulder, see MAR. External catheter in place, dark yellow urine. Possible change to
[employer] off clears for lunch. NSS @ 80mL/hr. No testing scheduled at this time. Possible downgrade? Call waddell in reach.
[2025-01-17] MEDS: DECADRON 1.5 MG IV (10:08)
[2025-01-17] MEDS: PROTONIX IV 40 MG IV (10:08)
[2025-01-17] MEDS: DUPHALAC/CHRONULAC 45 GRAMS PO ×3 (10:08→21:53)
[2025-01-17] MEDS: NSS (PRESERVATIVE FREE) 10 ML IV (10:08)
[2025-01-17] MEDS: NOVOLOG FLEXPEN-LOW RESISTANCE 1 UNITS SC (10:08)
[2025-01-17] MEDS: CATAPRES 0.1 MG PO ×2 (10:09→20:06)
[2025-01-17] MEDS: XIFAXAN 550 MG PO ×2 (10:09→20:06)
[2025-01-17] MEDS: FOLVITE 1 MG PO (10:09)
[2025-01-17] MEDS: MORPHINE SULFATE 1 MG IV ×2 (10:34→22:36)
--- NOTE | 2025-01-17 11:34 | CM ---
Addendum entered by Melina Iyer 01/17/25 14:26:
Patient cleared with no needs. LUIS MIGUEL Summers spoke to patient who declined [facility], says he has his own support, that a few guys in his group checks on him, and that he meet with these 'guys' regularly.
Original Note:
F/U: PT/OT has been unable to see the patient yet, anticipate no PT needs. Now, still being medically monitored, has hypertensive and tachycardic, and mental status improving with lactulose. PLAN: Anticipate Home No Needs.
[2025-01-17] MEDS: MAGNESIUM SULFATE 100 IV (12:01)
--- NOTE | 2025-01-17 12:17 | W.PN.GI.CBS2 ---
Today's Communication / Plan
-
Encephalopathy resolved. GI will sign off, please call with questions
Assessment / Plan
-
54-year-old male with past medical history as noted here with confusion and lethargy. He has a history of cirrhosis secondary to alcohol, with gastroesophageal variceal bleeding requiring TIPS at the [facility]. At that time he was
discharged off of his antihypertensives. He then had a relapse of alcohol was admitted with encephalopathy and discharged with lactulose. He now returns 2 days later with lethargy and confusion. He complains of shoulder pain though denies any
other abdominal pain. He has not had any melena or hematochezia. He denies any fevers or chills. Initially, he was tachycardic and hypertensive with concern for possible DTs. Mental status quickly improved with lactulose enemas. Overnight, his
vitals remained stable. No signs of withdrawal.
11/02/24 EGD - Mekapati- grade I EV with no bleeding or sigmata of recent bleeding, red blood in gastric fundus, type 2 GOV2- esophageal varices which extend to fundus with oozing blood. Portal HTN gastropathy normal duodenum.
1. Cirrhosis: Secondary to alcohol with recent relapse, decompensated with gastroesophageal varices, status post TIPS, with hepatic encephalopathy after TIPS procedure. At this point his mental status is at baseline, he is mentating appropriately
without evidence of ongoing encephalopathy. Continue lactulose, titrating to 2-3 loose bowel movements a day and mental status. Continue Rifaximin 550mg BID, if having trouble obtaining this as outpatient, he can try [employer]
2. Hypertension/tachycardia--resolved
Okay for d/c today from a GI perspective as his encephalopathy has resolved. GI will sign off, please call with questions
Subjective
Subjective
Date of Service: January 17, 2025
Patient seen in follow-up this morning. Encephalopathy resolved, he is AAOx3 today.
Objective
Data Reviewed
Laboratory Data:
Laboratory Results
01/17/25 05:53
01/17/25 05:53
Laboratory Results
PT 22.0 Sec (11.4-14.6) H 01/17/25 05:53
INR 1.96 01/17/25 05:53
APTT 31.9 Sec (23.4-35.0) 01/15/25 17:25
Phosphorus 2.9 mg/dl (2.5-4.5) 01/15/25 16:51
Magnesium 1.3 mg/dl (1.6-2.3) L 01/17/25 05:53
Total Bilirubin 2.9 mg/dl (0.2-1.3) H 01/17/25 05:53
AST 34 U/L (17-59) 01/17/25 05:53
ALT 21 U/L (0-50) 01/17/25 05:53
Alkaline Phosphatase 250 U/L (38-126) H 01/17/25 05:53
Lipase 91 U/L (23-300) 01/15/25 16:51
Vital Signs and I&O:
Vital Signs
Temp Pulse Resp BP Pulse Ox
98.3 F 70 13 101/68 100
01/17/25 11:37 01/17/25 10:09 01/17/25 06:00 01/17/25 10:09 01/17/25 02:00
I&O
01/16/25 01/17/25 01/18/25
06:59 06:59 06:59
Intake Total 1045 / 1045 1210 / 1210
Output Total 550 / 550 800 / 800
Balance 495 / 495 410 / 410
Physical Exam
Physical Exam
HEENT: Anicteric and Moist mucous membranes
GI: Soft, Non Distended and Non Tender
Neuro: Non Focal
AAOx3. No asterixes
[2025-01-17 12:45] LABS: Glucose - Point of Care 323 mg/dl (70-99)
--- NOTE | 2025-01-17 12:50 | PTCARENOTE ---
Report called to Gen REESE 4 Jaswinder. Patient eating lunch and PT/OT working with patient. Will send to new room when finished.
[2025-01-17] MEDS: NOVOLOG FLEXPEN-LOW RESISTANCE 4 UNITS SC (13:20)
[2025-01-17] MEDS: VITAMIN B1 100 MG PO ×2 (13:20→20:09)
[2025-01-17] MEDS: KCL 40 MEQ PO (13:20)
[2025-01-17 17:33] LABS: Glucose - Point of Care 386 mg/dl (70-99)
[2025-01-17] MEDS: NOVOLOG FLEXPEN-LOW RESISTANCE 5 UNITS SC (17:44)
[2025-01-17] MEDS: LANTUS 0.04 UNITS SC (18:25)
[2025-01-17 21:06] LABS: Glucose - Point of Care 377 mg/dl (70-99)
[2025-01-18] MEDS: MORPHINE SULFATE 1 MG IV ×3 (02:52→16:17)
[2025-01-18 03:04] VITALS: BP 111/70
[2025-01-18 07:27] LABS: Glucose - Point of Care 188 mg/dl (70-99)
[2025-01-18 07:30] VITALS: BP 156/85
--- NOTE | 2025-01-18 07:47 | W.PN.HOSP.TC ---
Today's Communication/Plan
-
Discharge today along with recommendation to follow-up with gi
Continue lactulose, rifaximin as prescribed
psychiatrist follow-up
magneisum 4 g replenish by given low 1.2 meq, discharge after the IV infusion
Assessment / Plan
Assessment / Plan
In summary, 54 yo M PMH alcohol abuse, alcoholic cirrhosis s/p TIPS 2 months prior, recent admission 01/10-01/13/25 for alcohol withdrawal, new diagnosis DM II and electrolyte abnormalities brought in to the ER after found down at home currently most
concerning for hepatic encephalopathy
Altered mental status
Hepatic encephalopathy likely due to EtOH relapse
-Vitals: BP 156/85, MN 65, RR 18, temp 97.6, O2 sat 97.
-PT-22 high--21.7 high.
-Sodium 135--134, potassium 3.7,
- Ammonia 86, he reports last drink was 01/13 (pint of vodka), which was day of discharge
- IVF NS 80cc/hr
- IV ondansetron available prn
- mental status improved, able to tolerate PO meds
- IV thiamine -> PO thiamine
- continue folic acid PO
- IV dexamethasone to PO prednisone
- started rifaximin 550mg bid 01/16
- f/u GI recs
Hypomagnesemia
- replete with 4g IV Mg today by given low magnesium 1.2
- Aim for K > 4
- 40 KCl mEQ PO ordered
EtOH abuse
EtOH cirrhosis
- TIPS 2 months prior
- MSAS 0 this morning
- CM aware that he experienced EtOH relapse, dispo planning likely to rehab
Concern for polymyalgia rheumatica
- IV dexamethasone 1.5mg because was on outpatient prednisone taper 10mg x 2 weeks / decrease by 2.5mg each time
- transition to PO prednisone
T2DM - new diagnosis
- insulin sliding scale
- lantus 4 units qhs, but pre-meal insulin is held while NPO
Diet: advance to diabetic diet
Code: Full
DVTppx: SCDs
Anticipated Discharge: Today
Subjective/Interval History
-
Date of Service: January 18, 2025
Overnight denied abdominal pain, diarrhea, vomiting, dizziness, tremors.
Objective Data
-
Labs:
Laboratory Results
01/18/25
07:14
WBC Pending
Hgb Pending
Hct Pending
Plt Count Pending
PT Pending
INR Pending
Sodium Pending
Potassium Pending
Chloride Pending
Carbon Dioxide Pending
BUN Pending
Creatinine Pending
Glucose Pending
Calcium Pending
Total Bilirubin Pending
AST Pending
ALT Pending
Alkaline Phosphatase Pending
Vital Signs:
Vital Signs
Temp Pulse Resp BP Pulse Ox
97.7 F 71 18 111/70 99
01/18/25 03:04 01/18/25 03:04 01/18/25 03:04 01/18/25 03:04 01/18/25 03:04
I&O
01/17/25 01/18/25 01/19/25
06:59 06:59 06:59
Intake Total 1210 / 1210 2600 / 2600
Output Total 800 / 800
Balance 410 / 410 2600 / 2600
Review of Systems
-
History Source: Patient
All other systems: Reviewed and negative
Physical Exam
-
General: Comfortable and Other
HEENT: Other (Nodular)
Respiratory: Clear to Auscultation
Cardiac: Regular Rhythm and S1/S2
Genito-urinary: No Costovertebral Tender
Skin: Warm
Neuro: AO x 3
Hematologic / Lymphatic: No Lymphadenopathy
Psych: Calm
[2025-01-18 08:15] LABS: Hematocrit 30.0 % (39.0-52.0); Hemoglobin 10.0 g/dL (13.0-18.0); Mean Corp Hgb Conc. 33.3 g/dL (33.0-37.0); Mean Corpuscular Volume 82.6 fL (80.0-94.0); Platelet Count 104 10^3/uL (130-400); Red Cell Dist. Width 16.2 % (11.5-14.5)
[2025-01-18 08:18] LABS: INR 1.87; PT 21.7 Sec (11.4-14.6)
[2025-01-18] MEDS: DUPHALAC/CHRONULAC 45 GRAMS PO (08:19)
[2025-01-18] MEDS: NOVOLOG FLEXPEN-LOW RESISTANCE 1 UNITS SC (08:19)
[2025-01-18] MEDS: FOLVITE 1 MG PO (08:20)
[2025-01-18] MEDS: DELTASONE 10 MG PO (08:20)
[2025-01-18] MEDS: XIFAXAN 550 MG PO (08:20)
[2025-01-18] MEDS: CATAPRES 0.1 MG PO (08:20)
[2025-01-18] MEDS: VITAMIN B1 100 MG PO (08:20)
[2025-01-18] MEDS: NSS (PRESERVATIVE FREE) 10 ML IV (08:22)
[2025-01-18] MEDS: PROTONIX IV 40 MG IV (08:22)
[2025-01-18 08:39] LABS: ALT (SGPT) 29 U/L (0-50); AST (SGOT) 55 U/L (17-59); Albumin 3.1 g/dl (3.5-5.0); Alkaline Phosphatase 313 U/L (38-126); Blood Urea Nitrogen 11 mg/dl (9-20); Calcium 9.0 mg/dl (8.4-10.2); Carbon Dioxide 19 mmol/L (22-30); Chloride 108 mmol/L (98-107); Estimated Creatinine Clearance 98 ml/min; Glucose 183 mg/dl (70-99); Potassium 3.7 mmol/L (3.5-5.1); Sodium 134 mmol/L (135-145); Total Protein 6.7 g/dl (6.3-8.2); eGFR > 60.00
[2025-01-18] MEDS: NSS 1000 IV (10:37)
[2025-01-18 11:02] LABS: Magnesium 1.5 mg/dl (1.6-2.3)
[2025-01-18 11:10] VITALS: BP 141/87
[2025-01-18 11:22] LABS: Glucose - Point of Care 350 mg/dl (70-99)
[2025-01-18] MEDS: MAGNESIUM SULFATE 100 IV (12:30)
[2025-01-18] MEDS: NOVOLOG FLEXPEN-LOW RESISTANCE 5 UNITS SC (13:35)
--- NOTE | 2025-01-18 13:35 | W.DCSUMMARY ---
Documented by User: Paulino Kennedy MD, Resident 01/18/25 16:38
Discharge Summary
Discharge Data
Date of Admission: 01/15/25
Date of Discharge: 01/18/25
-
Pending Results: No
Hospital Course
Discharging Physician : Al Guzmán MD
Paulino Ventura MD
Disposition : Home
Primary care physician : Dr Emilia Little
Principal Discharge diagnosis : Hepatic encephalopathy secondary to alcohol usage
Chronic Discharge diagnosis :
# Insulin-dependent diabetes mellitus managed with insulin sliding scale along with insulin aspart, insulin glargine.
# Presumed polymyalgia rheumatica continued with IV dexamethasone 1.5 mg and switch to oral prednisone 10 mg and started to taper 2.5 mg every week.
# Hypomagnesemia acute on chronic and repleted with magnesium 4 g IV throughout the course of hospitalization.
# Sinus tachycardia and hypertension resolved with clonidine 0.1 twice daily.
# Ethanol abuse/cirrhosis s/p TIPS
Hospital Course :
On 54-year-old male with recently admitted at [facility] for hepatic encephalopathy readmitted with a concern for continuous vomiting, trauma due to a fall, confusion. Patient was recently went for s/p TIPS 2 months prior, 01/10-01/13
for alcohol withdrawal with new diagnosis of type 2 diabetes mellitus along with electrolyte abnormalities. While at the time of admission he complained for bilateral shoulder, hip pain secondary to polymyalgia rheumatica. Patient was on
prednisone taper along with Protonix. Patient was kept on n.p.o. and his ammonia was 86 started on lactulose enema along with IV thiamine followed MSAS protocol for alcohol withdrawal. GI consulted and they recommended to follow-up with
hospitalist management and treatment. Because the patient was not compliance with the medication, and started to drink alcohol after the discharge which triggered the current hepatic and cephalopathy episode. Patient was discharged with rifaximin
550 mg twice daily on 01/16 along with lactulose 45 g 3 times daily. Patient was stable and discussed his current hospital course with his primary contact through phone. Patient has no insurance and requested him to follow-up with [facility] in future for BMP, CBC follow-up and alter diabetic medications. Patient was on full code, SCD DVT prophylaxis with regular diet.
Advised and referral letter sent to psychiatrist for the future follow-up regards his alcohol addiction treatment.
IMPORTANT:
If your symptoms worsen when you get home, go to the Emergency Room if you cannot reach a doctor, or call 911
K 3.8,Mg 1.7,BG 151,B12 709, TSH 1.87
Important imaging findings :
# Doppler study ultrasound 01/16 findings:
TIPS Stent is visualized and is patent with normal velocities.
Hepatofugal flow within the left portal vein.
Cholelithiasis. No evidence for significant bladder wall thickening with a negative sonographic Freitas's sign. No evidence for biliary ductal dilation.
Cirrhotic appearance of the liver. Limited visualization with no evidence for a focal mass lesion.
The pancreas is unable to be adequately visualized.
# Chest x-ray 01/16: stable elevation of the left hemidiaphragm. No evidence of active cardiopulmonary disease.
# On 01/[address] findings: No evidence of acute intracranial abnormality.
Procedure findings : None
Discharge Plan
-
Patient Disposition: Home (Routine Discharge)
Discharge Diagnosis/Procedures: Hepatic encephalopathy
sinus tachycardia and hypertension
insulin-dependent diabetes mellitus
polymyalgia rheumatica
Hypomagnesemia
Condition: Fair
Diet: No restrictions
Additional Diets: Avoid all alcoholic beverages
Activity: No restrictions
Driving Restrictions: As prior to admission
Blood Work: CBC, CMP, Magnesium level in 5-7 days with family doctor
Instructions: Alcohol Withdrawal (DC), Alcohol Use Disorder (DC), BLOOD PRESSURE
Referrals:
Al Nair MD [Active, Gastroenterology]
Emilia Little PA-C [Family Provider, Internal Medicine]
Vinod Elaine MD [Consulting Staff, Rheumatology]
Jonelle Parsons MD [Active, Psychiatry]
Additional Discharge Medication Instructions: -Decreased lantus insulin to 4 units nightly
-Increased pantoprazole to 40 mg daily
-Continue lactulose, rifaximin as prescribed.
-Follow-up with PCP within a week of discharge along with BMP, CBC results.
-Discuss with your PCP regards future management for hyperglycemia due to prednisone intake.
-Continue prednisone as previously prescribed and follow-up with filenet p8 developer within a few weeks of discharge.
Prescriptions:
New
thiamine mononitrate (vit B1) 100 mg Tablet
100 mg PO BID Qty: 60 0RF
Xifaxan 550 mg Tablet
550 mg PO BID Qty: 60 0RF
(DME) cbc
See Rx Instructions .Route .MEDSUPPLY Qty: 1 0RF
Rx Instructions:
Please complete lab work includes complete blood test, comprehensive metabolic panel, ammonia.
Follow-up with your PCP within a week of discharge.
Continued
trazodone 50 mg Tablet
25 mg PO HS
gabapentin 300 mg Capsule
300 mg PO TID
magnesium oxide 400 mg magnesium Tablet
800 mg PO BID
folic acid 1 mg Tablet
1 mg PO DAILY
diphenhydramine-acetaminophen [Acetaminophen PM] 25-500 mg Tablet
2 tab PO HSPRN PRN (Reason: sleep)
acetaminophen [Tylenol Extra Strength] 500 mg Tablet
1,000 mg PO Q6HPRN PRN (Reason: mild to moderate) 14 Days Qty: 30 0RF
oxycodone 5 mg tablet
5 mg PO Q6H PRN (Reason: Pain) 5 Days Qty: 20 0RF
prednisone 2.5 mg tablet
10 mg PO DIRECTED
Rx Instructions:
10mg x 2 weeks, 7.5mg x 2 weeks, 5mg x 2 weeks, 2.5mg x 2 weeks - MO
insulin aspart U-100 100 unit/mL (3 mL) insulin pen
3 unit SC AC
thiamine mononitrate (vit B1) 100 mg tablet
100 mg PO BID
lactulose 10 gram/15 mL Solution
45 g PO TID Qty: 0 0RF
Changed
pantoprazole 20 mg Tablet,Delayed Release (Dr/Ec)
40 mg PO DAILY Qty: 0 0RF
insulin glargine [Lantus Solostar U-100 Insulin] 100 unit/mL (3 mL) Insulin Pen
4 unit SC QPM Qty: 0 0RF
Discharge Orders:
Discharge Patient (As Directed); Ordered 01/18/25
Ordered By: Paulino Kennedy
Discharge Date and Time
Print Language: UKRAINIAN

Documented by User: Al Izaguirre DO 01/18/25 16:55
Discharge Summary
Discharge Data
Date of Admission: 01/15/25
Date of Discharge: 01/18/25
Total time spent discharging patient (in min): 33
Discharge Plan
-
Patient Disposition: Home (Routine Discharge)
Discharge Diagnosis/Procedures: Hepatic encephalopathy
sinus tachycardia and hypertension
insulin-dependent diabetes mellitus
polymyalgia rheumatica
Hypomagnesemia
Condition: Fair
Diet: No restrictions
Additional Diets: Avoid all alcoholic beverages
Activity: No restrictions
Driving Restrictions: As prior to admission
Blood Work: CBC, CMP, Magnesium level in 5-7 days with family doctor
Instructions: Alcohol Withdrawal (DC), Alcohol Use Disorder (DC), BLOOD PRESSURE
Referrals:
Al Nair MD [Active, Gastroenterology]
Emilia Little PA-C [Family Provider, Internal Medicine]
Vinod Elaine MD [Consulting Staff, Rheumatology]
Jonelle Parsons MD [Active, Psychiatry]
Additional Discharge Medication Instructions: -Decreased lantus insulin to 4 units nightly
-Increased pantoprazole to 40 mg daily
-Continue lactulose, rifaximin as prescribed.
-Follow-up with PCP within a week of discharge along with BMP, CBC results.
-Discuss with your PCP regards future management for hyperglycemia due to prednisone intake.
-Continue prednisone as previously prescribed and follow-up with filenet p8 developer within a few weeks of discharge.
Prescriptions:
New
thiamine mononitrate (vit B1) 100 mg Tablet
100 mg PO BID Qty: 60 0RF
Xifaxan 550 mg Tablet
550 mg PO BID Qty: 60 0RF
(DME) cbc
See Rx Instructions .Route .MEDSUPPLY Qty: 1 0RF
Rx Instructions:
Please complete lab work includes complete blood test, comprehensive metabolic panel, ammonia.
Follow-up with your PCP within a week of discharge.
Continued
trazodone 50 mg Tablet
25 mg PO HS
gabapentin 300 mg Capsule
300 mg PO TID
magnesium oxide 400 mg magnesium Tablet
800 mg PO BID
folic acid 1 mg Tablet
1 mg PO DAILY
diphenhydramine-acetaminophen [Acetaminophen PM] 25-500 mg Tablet
2 tab PO HSPRN PRN (Reason: sleep)
acetaminophen [Tylenol Extra Strength] 500 mg Tablet
1,000 mg PO Q6HPRN PRN (Reason: mild to moderate) 14 Days Qty: 30 0RF
oxycodone 5 mg tablet
5 mg PO Q6H PRN (Reason: Pain) 5 Days Qty: 20 0RF
prednisone 2.5 mg tablet
10 mg PO DIRECTED
Rx Instructions:
10mg x 2 weeks, 7.5mg x 2 weeks, 5mg x 2 weeks, 2.5mg x 2 weeks - MO
insulin aspart U-100 100 unit/mL (3 mL) insulin pen
3 unit SC AC
thiamine mononitrate (vit B1) 100 mg tablet
100 mg PO BID
lactulose 10 gram/15 mL Solution
45 g PO TID Qty: 0 0RF
Changed
pantoprazole 20 mg Tablet,Delayed Release (Dr/Ec)
40 mg PO DAILY Qty: 0 0RF
insulin glargine [Lantus Solostar U-100 Insulin] 100 unit/mL (3 mL) Insulin Pen
4 unit SC QPM Qty: 0 0RF
Discharge Orders:
Discharge Patient (As Directed); Ordered 01/18/25
Ordered By: Paulino Kennedy
Discharge Date and Time
Print Language: UKRAINIAN
[2025-01-18 15:20] VITALS: BP 130/80
[2025-01-18] MEDS: DUPHALAC/CHRONULAC PO (16:17)
[2025-01-18 16:55] LABS: Glucose - Point of Care 432 mg/dl (70-99)
[2025-01-18 17:13] LABS: Glucose - Point of Care 446 mg/dl (70-99)
[2025-01-18] MEDS: NOVOLOG FLEXPEN-LOW RESISTANCE 6 UNITS SC (17:33)
== END 2025-01-18 18:15 | disposition home or self-care (01) | DRG 434 ==
LOC: 4 WEST ACU 21:29
PROVIDERS: Nurse Practitioner Adult Health; ADMITTING PHYSICIAN Student in an Organized Health Care Education/Training Program; ATTENDING PHYSICIAN Internal Medicine; CONSULT PHYSICIAN Internal Medicine Gastroenterology; EMERGENCY PHYSICIAN Student in an Organized Health Care Education/Training Program; FAMILY PHYSICIAN Physician Assistant
DX: K70.30 Alcoholic cirrhosis of liver without ascites (principal); K76.82 Hepatic encephalopathy; F41.0 Panic disorder [episodic paroxysmal anxiety]; I10 Essential (primary) hypertension; K21.9 Gastro-esophageal reflux disease without esophagitis; E11.9 Type 2 diabetes mellitus without complications; I48.0 Paroxysmal atrial fibrillation; M35.3 Polymyalgia rheumatica; K31.89 Other diseases of stomach and duodenum; E83.42 Hypomagnesemia; E88.09 Other disorders of plasma-protein metabolism, not elsewhere classified; D69.6 Thrombocytopenia, unspecified; F10.20 Alcohol dependence, uncomplicated; K64.8 Other hemorrhoids; T47.3X6A Underdosing of saline and osmotic laxatives, initial encounter; Z91.128 Patient's intentional underdosing of medication regimen for other reason; Y92.9 Unspecified place or not applicable; Z91.81 History of falling; Z79.4 Long term (current) use of insulin; Z79.52 Long term (current) use of systemic steroids; Z91.02 Food additives allergy status; Z80.0 Family history of malignant neoplasm of digestive organs; Z80.42 Family history of malignant neoplasm of prostate; Z83.719 Family history of colon polyps, unspecified; Z80.1 Family history of malignant neoplasm of trachea, bronchus and lung; Z11.52 Encounter for screening for COVID-19
CPT/HCPCS: 36600; 70450; 71046; 76700; 80053; 80143; 80179; 80306; 80307; 81003; 81015; 82077; 82140; 82248; 82607; 82805; 82962; 83690; 83735; 84100; 84443; 85025; 85027; 85610; 85730; 87040; 87502; 87811; 92610; 93005; 93975; 96374; 97162; 97166; 99291